=== PATIENT | female | born 1980 | race Caucasian/White ===

== ENCOUNTER 2018-01-08 21:45 | Emergency (ER) | payer MEDICAID, SELFPAY ==
[2018-01-08 21:45] VITALS: BP 132/82; PULSE 72; RESP 16; TEMP 36.7; O2SAT 99; BMI 23.3
--- NOTE | 2018-01-08 23:06 | ED.VISSUMM ---
- ER Visit Summary Date of Service: 01/08/18 Chief Complaint: Headache History of Present Illness: The patient is a 37 F is had a headache at work over the past 3 days. Patient states the proximal hour after arriving at work she will develop headache in the bilateral temporal area. Yesterday she developed vomiting because the headache was so severe and she was sent home early. Patient states today she developed headache and nausea and was sent home early again. 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 Headaches usually resolve about 2 hours after she leaves work. She does admit that she is due for an eye exam. Patient fell asleep in the waiting area while waiting for a room. When I called her name she states she jumped up and twisted her left ankle. She is now complaining of left ankle pain. Headache at this time is resolved. Physical Examination: Vital signs unremarkable. Patient sitting upright in a well lit room. She is in no acute distress. Head neck examination reveals no sign of trauma. Heart is regular rate and rhythm. Lung sounds are clear. Abdomen is soft and nontender. Left lower extremity examination reveals reproducible tenderness of the lateral malleolus. There is minimal edema. Strong pulses are noted. Neuro exam is normal. Test Results: Left ankle x-rays are obtained and unremarkable. Emergency Department Course and Treatment: Matthieu wrap will be applied to the left ankle. Patient is encouraged to have her eyes checked as soon as possible. Should be on a prescription for Zofran. Treatment Plan: [] Disposition: Discharge Impression: 1. Cephalgia, resolved 2. Left ankle sprain This note was generated with [employer] dictation software. It may contain incorrect words, spelling, and punctuation that were not noted in review of the chart prior to signing ED Disposition - Plan for ED Patient: Chief Complaint: Headache Referrals: [facility] Doctor,Out of [Primary Care Provider] -
--- NOTE | 2018-01-08 23:10 | RAD_ITS ---
STUDY: X-RAY - LEFT ANKLE REASON FOR EXAM: Female, 37 years old. Ankle pain. Injury. TECHNIQUE: 3 view(s) of the ankle. COMPARISON: None. FINDINGS: Normal visualized distal tibia and fibula. Normal medial and lateral malleoli. Normal tibiotalar articulation and ankle mortise. Normal visualized talus and calcaneus. The visualized subtalar, talonavicular, calcaneocuboid and tarsal articulations are normal. There is no demonstrated fracture. The soft tissue structures are unremarkable. RAD/Ankle min 3 Views IMPRESSION: Normal x-ray examination of the ankle. Electronically Signed: Nirmal Weiss MD at 23:30 EDT , Service support ,
--- NOTE | 2018-01-08 23:37 | ED.DEP ---
ED Disposition - Plan for ED Patient: Disposition: Home or Assisted Living Chief Complaint: Lower Extremity Injury Instructions: ED Cephalgia Unspecified, ED Sprain Ankle W X Ray Prescriptions: Ondansetron [Zofran Odt] 4 mg PO Q8H PRN PRN #10 tablet PRN Reason: Nausea Referrals: [facility],Out of [Primary Care Provider] - Additional Instructions: Follow-up for eye exam as soon as possible.
== END 2018-01-08 23:49 | disposition home or self-care (01) ==
PROVIDERS: Emergency Provider Emergency Medicine
DX: R51 Headache (principal); S93.402A Sprain of unspecified ligament of left ankle, initial encounter; X50.1XXA Overexertion from prolonged static or awkward postures, initial encounter; Y93.89 Activity, other specified; Y92.538 Other ambulatory health services establishments as the place of occurrence of the external cause; I10 Essential (primary) hypertension; Z72.0 Tobacco use
CPT/HCPCS: 73610; 99283

== ENCOUNTER 2018-06-10 13:00 | Emergency (ER) | payer MEDICAID, SELFPAY ==
[2018-06-10 13:00] VITALS: BP 155/87; PULSE 69; RESP 16; TEMP 36.2; O2SAT 99; BMI 27.1
--- NOTE | 2018-06-10 13:24 | CT_ITS ---
STUDY: CT SOFT TISSUE NECK WITH CONTRAST REASON FOR EXAM: Female, 37 years old. Several day history of a right earache and sore throat. RADIATION DOSAGE (If Supplied By Facility): CTDIvol = ( 13.44 ) mGy, DLP = ( 424.71 ) mGycm TECHNIQUE: The patient was scanned in a multi-detector CT scanner. High resolution transaxial imaging was performed following intravenous administration of 75 ml of Isovue 300 contrast material. Sagittal and coronal images were reconstructed. Individualized dose optimization techniques were used for this CT. COMPARISON: None. FINDINGS: Normal bilateral parotid glands. Normal bilateral business solutions consultant spaces. Normal bilateral parapharyngeal spaces. Normal bilateral carotid spaces. Normal bilateral sublingual and submandibular glands and spaces. Normal visualized nasopharynx. Normal retropharyngeal space. Normal perivertebral space. There is hypertrophy of the bilateral faucial tonsils. This is more prominent on the right side. There is narrowing of the oropharyngeal airway. No abscess is seen at this time. The visualized tongue, tongue base and oropharynx are normal. There are minimally enlarged lymph nodes of the neck, with preservation of normal hiral architecture, consistent with a reactive lymph hyperplasia. There is no demonstrated solid or cystic mass lesion. There is no abnormal contrast enhancement. Normal epiglottis, bilateral vallecula and hypopharynx. The pre-epiglottic and paraglottic adipose spaces are normal. Normal visualized bilateral piriform sinuses, aryepiglottic folds, vocal cords, and arytenoid-cricoid articulations. Normal subglottic trachea. Normal bilateral lobes of the thyroid gland. Normal visualized pulmonary apices. Normal visualized paranasal sinuses. Normal visualized cervical spine. CT/Soft Tissue Neck WITH Contrast IMPRESSION: Hypertrophy of the bilateral faucial tonsils more prominent on the right side. No evidence of a tonsillar abscess is seen at this time. Electronically Signed: Patrice Baron MD at 14:45 EST , Service support ,
[2018-06-10 13:48] LABS: Absolute Lymphocyte Count 2.12 X10^3/ul (0.83-4.51); Absolute Neutrophil Count 11.5 X10^3/uL (2.0-7.7); Basophil# 0.03 X10^3/uL; Basophil% 0.2 % (0-1); Eosinophil# 0.07 X10^3/uL; Eosinophils% 0.5 % (0-5); Hematocrit 41.7 % (37-47); Hemoglobin 12.6 g/dl (12.0-15.0); Lymphocyte # 2.12 X10^3/ul (4.0); Lymphocyte % 14.4 % (19-41); Mean Corp Hgb Conc 30.2 g/gl (32-36); Mean Corpuscular Hgb 24.4 pg (27.0-32.0); Mean Corpuscular Volume 80.7 fL (81-99); Mean Platelet Vol. 9.9 fl (6.2-12.0); Monocyte# 0.97 X10^3/uL; Monocyte% 6.6 % (0-10); Neutrophil # 11.48 X10^3/uL (2.7-7.7); Neutrophil % 78.1 % (47-70); Platelet Count 359 K/mm3 (150-450); RBC Distribution Width CV 18.4 % (11.6-14.6); RBC Distribution Width SD 54.4 fl (35.1-43.9); Red Blood Count 5.17 M/mm3 (4.2-5.4); White Blood Count 14.7 K/mm3 (4.4-11.0)
[2018-06-10 13:50] LABS: POSITIVE COUNT NO; POSITIVE DIFFERENTIAL NO; POSITIVE MORPHOLOGY NO
[2018-06-10 13:59] LABS: Anion Gap 11 (5-15); BUN 7 mg/dL (7-18); BUN/Creat Ratio 10.3 RATIO (10-20); Calcium,Total 8.8 mg/dL (8.5-10.1); Chloride 102 mmol/L (98-107); Creatinine, Serum 0.68 mg/dL (0.55-1.02); EST Glomerular Filtration Rate 104 mL/min (>60); Est Glom Filt Rate - Afr Amer 126 mL/min (>60); Estimated Creatinine Clearance 103.91 ml/min; Glucose 104 mg/dL (74-106); Potassium 3.6 mmol/L (3.5-5.1); Sodium Level 140 mmol/L (136-145)
--- NOTE | 2018-06-10 15:05 | ED.VISSUMM ---
- ER Visit Summary Date of Service: 06/10/18 Chief Complaint: Sore throat History of Present Illness: The patient is a 37 F who presents with sore throat that has gotten worse since yesterday. Patient went to urgent care and was referred here for possible peritonsillar abscess. Patient states that he had a rapid strep at the urgent care which was negative. Patient states the pain is worse with swallowing. Patient states the pain improves with ice chips and tea. Patient denies any cough. Patient admits to some right ear pain. Patient admits to subjective fevers and sweats at home. Physical Examination: Vital signs are stable. Patient is afebrile. Patient is in no acute distress. Oral mucosa is pink and moist. Oropharynx shows some tonsillar erythema. There is no exudate noted. Neck is supple. Trachea is midline. There is tender anterior cervical lymphadenopathy noted. Heart was regular rate and rhythm. Lungs are clear and equal bilateral. Renal nerves II through XII are intact. There are no focal motor or sensory deficits noted. The remaining physical exam is within normal limits. Test Results: CBC and basic metabolic profile were obtained and were within normal limits. The skin of the soft tissue neck was obtained. There is no evidence of a peritonsillar abscess. Emergency Department Course and Treatment: Patient was advised that this is most likely a viral pharyngitis. Patient was instructed to follow-up with her primary care physician in 7-10 days. Patient understood and was agreeable with the plan. All questions were answered. Disposition: Discharged home Impression: Viral pharyngitis This note was generated with [employer] dictation software. It may contain incorrect words, spelling, and punctuation that were not noted in review of the chart prior to signing ED Disposition - Plan for ED Patient: Disposition: Home or Assisted Living Diagnosis: Pharyngitis Instructions: ED Pharyngitis Viral Referrals: [facility] Doctor,Out of [Primary Care Provider] -
[2018-06-10 15:27] VITALS: RESP 16
== END 2018-06-10 15:27 | disposition home or self-care (01) ==
PROVIDERS: Emergency Provider Emergency Medicine
DX: J02.9 Acute pharyngitis, unspecified (principal); Z72.0 Tobacco use
CPT/HCPCS: 70491; 80048; 85025; 99283; Q9967; A4216

== ENCOUNTER 2019-03-22 19:24 | Emergency (ER) | payer MEDICAID, SELFPAY ==
[2019-03-22 19:25] VITALS: BP 147/96; PULSE 102; RESP 16; TEMP 36.7; O2SAT 99; BMI 24.7
--- NOTE | 2019-03-22 19:45 | ED.VISSUMM ---
- ER Visit Summary Date of Service: 03/22/19 Chief Complaint: Back pain, breast tenderness, lower extremity edema, and headache History of Present Illness: The patient is a 38 F who presents with breast tenderness, back pain, lower extremity edema, and headache that has been getting worse over the past week. Patient states the symptoms are similar to when she was . Patient states she has had a tubal ligation. Patient denies any abdominal pain. Patient describes her pain as aching. Patient states it is over the lower back. Patient states she has been taking [id number]-[id number] medications which have been helping. Patient states her headache is similar to prior migraine headaches. Patient states it is worse with light. Patient denies any paresthesias or weakness. Patient admits to some nausea and vomiting. Physical Examination: Vital signs are stable. Patient is afebrile. Patient is in no acute distress. Oral mucosa is pink and moist. Neck is supple. Trachea is midline. There is no JVD. Heart was regular rate and rhythm. Lungs are clear and equal bilaterally. Abdomen is soft. Bowel sounds are normal. There is no tenderness. Cranial nerves II through XII are intact. There are no focal motor or sensory deficits noted. Test Results: CBC, basic metabolic profile, serum hCG were obtained and were all within normal limits. PA and lateral chest x-ray was obtained. There is no acute cardiopulmonary process. This was interpreted by the radiologist myself. Emergency Department Course and Treatment: Patient felt better on reevaluation. Patient was advised that this is most likely a viral illness. Patient was instructed to follow-up with her primary care physician in 5 to 7 days. Patient understood and was agreeable with the plan. All questions were answered. Disposition: Discharge home Impression: Viral illness This note was generated with [employer] dictation software. It may contain incorrect words, spelling, and punctuation that were not noted in review of the chart prior to signing ED Disposition - Plan for ED Patient: Disposition: Home or Assisted Living Diagnosis: Viral illness Instructions: VIRAL SYNDROME (Adult) Referrals: [facility],Out of [NON-STAFF] - 5-7 Days
--- NOTE | 2019-03-22 19:52 | RAD_ITS ---
STUDY: X-RAY CHEST REASON FOR EXAM: Female, 38 years old. Cough and general illness TECHNIQUE: Two view of the chest were performed COMPARISON: None. FINDINGS: Lungs are clear. There is no pneumothorax, pulmonary edema, pleural effusions or cardiomegaly. Osseous structures are intact. There is no gas under the diaphragms. [ ] RAD/Chest PA and Lateral IMPRESSION: 1. No acute cardiorespiratory disease. [ ] Electronically Signed: Renate Ramírez, at 20:17 EST Tel , Service support ,
[2019-03-22 20:02] LABS: Absolute Lymphocyte Count 3.04 X10^3/uL (0.83-4.51); Absolute Neutrophil Count 6.8 X10^3/uL (2.0-7.7); Basophil# 0.07 X10^3/uL; Basophil% 0.6 % (0-1); Eosinophil# 0.09 X10^3/uL; Eosinophils% 0.8 % (0-5); Hematocrit 39.1 % (37-47); Hemoglobin 12.7 g/dL (12.0-15.0); Lymphocyte # 3.04 X10^3/ul (4.0); Lymphocyte % 28.1 % (19-41); Mean Corp Hgb Conc 32.5 g/dL (32-36); Mean Corpuscular Hgb 26.6 pg (27.0-32.0); Mean Corpuscular Volume 81.8 fL (81-99); Mean Platelet Vol. 9.6 fl (6.2-12.0); Monocyte# 0.77 X10^3/uL; Monocyte% 7.1 % (0-10); NRBC Flagged by Analyzer 0 % (0-5); Neutrophil % 62.8 % (47-70); Platelet Count 377 K/mm3 (150-450); RBC Distribution Width CV 15.8 % (11.6-14.6); RBC Distribution Width SD 46.9 fl (35.1-43.9); Red Blood Count 4.78 M/mm3 (4.2-5.4); White Blood Count 10.8 K/mm3 (4.4-11.0)
[2019-03-22 20:17] LABS: Anion Gap 8 (5-15); BUN 12 mg/dL (7-18); BUN/Creat Ratio 17.3 RATIO (10-20); Calcium,Total 8.6 mg/dL (8.5-10.1); Chloride 106 mmol/L (98-107); Creatinine, Serum 0.69 mg/dL (0.55-1.02); EST Glomerular Filtration Rate 101 mL/min (>60); Est Glom Filt Rate - Afr Amer 123 mL/min (>60); Glucose 110 mg/dL (74-106); Sodium Level 139 mmol/L (136-145)
[2019-03-22 20:18] LABS: Internal QC Validated? YES +Cl - CLEAR BKGD; Pregnancy, Serum, hCG Quali. NEGATIVE Negative
== END 2019-03-22 21:25 | disposition home or self-care (01) ==
PROVIDERS: Emergency Provider Emergency Medicine
DX: B34.9 Viral infection, unspecified (principal); I10 Essential (primary) hypertension; J45.909 Unspecified asthma, uncomplicated; F17.200 Nicotine dependence, unspecified, uncomplicated
CPT/HCPCS: 71046; 80048; 84703; 85025; 99283

== ENCOUNTER → 2021-09-16 | Outpatient (CLI) | payer MEDICAID, SELFPAY ==
--- NOTE | 2021-09-16 10:46 | BI_ITS ---
MAMMOGRAPHY - BILATERAL SCREENING REASON FOR EXAM: Female, 40 years old. Routine annual screening examination. PERTINENT HISTORY: Aunt with breast cancer. Left breast mass. TECHNIQUE: Digital bilateral breast viji (3D mammographic acquisition) in the CC and MLO projections. 2-D mediolateral oblique (MLO) and craniocaudad (CC) views of both breasts were obtained. CAD: Full Field Digital Mammography with Computer Added Detection was performed. COMPARISON: None. Baseline examination. FINDINGS: Breast Composition: The breasts are heterogeneously dense, which may obscure small masses. There is an 8 cm x 7.2 cm mass in the upper outer quadrant of the left breast corresponding to the palpable abnormality. Correlation with ultrasound is recommended. There is retraction of the nipple. No other significant abnormalities are identified. BI/SCRN MAMM (CAD)W/VIJI BILAT IMPRESSION: 8 cm x 7.2 cm mass in the upper outer quadrant of the left breast corresponding to the palpable abnormality. Correlation with ultrasound is recommended. ASSESSMENT CATEGORY: BIRADS Category 0: Incomplete. Need additional imaging evaluation. A letter regarding these results will be sent to the patient by the facility within 30 days. Approximately 10% of breast cancers are not detected by mammography. A normal mammogram should not delay biopsy of a clinically suspicious abnormality. [id number] Electronically Signed: Patrice Baron MD at 12:02 EDT ,
== END | disposition home or self-care (01) ==
LOC: OPBI 10:44
PROVIDERS: Visit Provider Registered Nurse
DX: Z12.31 Encounter for screening mammogram for malignant neoplasm of breast (principal)
CPT/HCPCS: 77063; 77067

== ENCOUNTER → 2021-10-06 | Outpatient (REF) | payer SELFPAY ==
--- NOTE | 2021-10-06 10:15 | US_ITS ---
STUDY: ULTRASOUND BREAST - LEFT REASON FOR EXAM: Female, 41 years old. Left breast mass. TECHNIQUE: Axial and longitudinal images of the LEFT breast were performed with a high resolution ultrasound transducer. # OF IMAGES: 40 COMPARISON: Comparison is made with prior mammogram dated 09/16/2021. FINDINGS: LEFT Breast: There is a 6.6 cm x 7 cm x 5.2 cm complex solid and cystic mass extending from the 12 o''clock to the 3 o''clock position of the breast. Biopsy recommended. US/Breast Limited Unilateral IMPRESSION: 6.6 cm x 7 cm x 5.2 cm complex solid and cystic mass extending from the 12 o''clock position of the breast at the 3 o''clock position. Biopsy recommended. ASSESSMENT CATEGORY: BIRADS Category 4: Suspicious - Biopsy Should Be Considered. A letter regarding these results will be sent to the patient by the facility within 30 days. Electronically Signed: Patrice Baron MD at 11:05 EDT ,
== END | disposition home or self-care (01) ==
LOC: OPUS 09:54
PROVIDERS: Referring Provider Registered Nurse; Visit Provider Registered Nurse
DX: R92.8 Other abnormal and inconclusive findings on diagnostic imaging of breast (principal); Z12.31 Encounter for screening mammogram for malignant neoplasm of breast
CPT/HCPCS: 76642

== ENCOUNTER → 2021-10-14 | Outpatient (CLI) | payer MEDICAID, SELFPAY ==
--- NOTE | 2021-10-14 | IMM_PTH ---
PATIENT: IFTIKHAR CHENG LOC: [facility] U#:[id number] AGE/SX: 41/F ROOM: RE10/14/[address]: Dr. Joseluis Flores MD : 1980 BED: DIS: 10/14/2021 SPEC #: [id number] RECD: 10/18/21 11:42 STATUS: SANDEEP REQ #: [id number] JACINTA: 10/14/21 00:[address]: Joseluis Flores DEPT: IMMUNOHISTOCHEMISTRY RECD BY: Lakeshia Siddiqi ENTERED: 10/18/21 11:43 SP TYPE: IMMUNO OTHR DR: No Primary Care Phys Tissues: Left breast, NOS Procedures: CALPONIN-1 (add) CK5-6 (add) CK8 (add) E-CAD (add) HER2 DMITRY (add) KI-67 (add) P53 (add) NV (add) P40 (add) ER (initial) PHYSICIAN & INSTITUTION [address] [address] SPECIMEN INFORMATION: Tissue Source: Left breast tissue Clinical Info: Left breast mass Specimen Number: [id number] CPT code: 19745, 64360 x6, 40582 x3 METHODOLOGY: Deparaffinized sections of prefer/formalin-fixed tissue or PAP/DQ stained slides are incubated with monoclonal/polyclonal antibodies/oligonucleotide probes. Localization is made via biotin free immunoperoxidase method. Appropriate controls are performed and reacted as expected. Results on target cell population are indicated in the following table: RESULTS: ANTIBODY / CLONE RESULT E-Cad (ECH-6) positive CK8 (42njjdL02) positive Calponin-1 (GV691W) positive, weak CK5-6 (D5 & 1684) positive, focal and weak P40 (BC28) negative P53 (DO-7) positive Ki-67 (30-9) positive, high, ~70% MORPHOMETRIC ANALYSIS ER (clone 6F11) 0% NV (clone 16/1E2) <1%, moderate intensity Her-2Neu (clone CB11) 0 The prognostic test for HER2 is performed on formalin-fixed paraffin embedded tissue. A 3+ (positive) staining pattern is defined as intense, homogeneous, complete, circumferential membranous staining in >10% of contiguous tumor cells. A similar weak (2+) staining pattern is interpreted as equivocal. MILVIA follow-up testing is recommended for all equivocal cases. Positivity/negativity for ER/NV is reported if > or < 1% of the tumor cells are immuno- reactive, respectively. The ASCO/CAP criteria is used for scoring. Reference: Journal of Clinical Oncology, 2013; 31:2071-6906 & 2010; 16:6887-3280. Duration of fixation: 76.5 Hrs; Sample Adequate: Yes. These assays have not been validated on decalcified tissues. Results should be interpreted with caution given the likelihood of false negativity on decalcified specimens. These tests were developed and their performance characteristics determined by [facility]. They may not have been cleared or approved by the U.S. Food and Drug Administration. The FDA has determined that such clearance or approval is not necessary. The above immunohistochemical/dualISH markers are ordered and reviewed by the Pathologist. INTERPRETATION: Left breast, core biopsy: Invasive ductal carcinoma, nuclear grade 2. Negative for estrogen receptors (unfavorable prognostic indicator). Negative for progesterone receptors (unfavorable prognostic indicator). Negative for overexpression of BRK9dea. SJ:giovanni 10/19/2021 Case has been reviewed in consultation with Dr. Bedolla who concurs with the above diagnosis. IDC:AM
--- NOTE | 2021-10-14 | BRBX_PTH ---
PATIENT: IFTIKHAR CHENG LOC: [facility] U#:[id number] AGE/SX: 41/F ROOM: RE10/14/[address]: Dr. Joseluis Flores MD : 1980 BED: DIS: 10/14/2021 SPEC #: [id number] RECD: 10/14/21 15:38 STATUS: SANDEEP KANG #: [id number] JACINTA: 10/14/21 00:[address]: Joseluis Flores DEPT: SURGICAL PATHOLOGY RECD BY: Jasson Garrett ENTERED: 10/17/21 08:47 SP TYPE: BREAST BX OTHR DR: No Primary Care Phys Tissues: Left breast, NOS Procedures: Surgery Specimen Level IV HEADER OPERATION: Left breast biopsy PRE-OP DIAGNOSIS: Left breast mass TISSUE SUBMITTED: Left breast tissue MICROSCOPIC DIAGNOSIS Left breast, core biopsy: Invasive ductal carcinoma, nuclear grade 2, 0.3 cm in greatest dimension. See comment. ANNEMARIE:giovanni 10/18/2021 COMMENT Extensive area of infarction is noted adjacent to the tumor. Area of infarction measures 0.8 cm in greatest length. Immunohistochemistry ([id number]) supports the above diagnosis. ER/WI/Lhx8oxi studies are being performed on sections of tumor and the results from this study will be reported separately ([id number]). Case has been reviewed in consultation with Dr. Bedolla who concurs with the above diagnosis. IDC:AM MICROSCOPIC DESCRIPTION Slides are reviewed. GROSS DESCRIPTION Received in fixative is one container labeled with the patient's name and designated left breast. The specimen consists of multiple elongated fragments of lopez-yellow fibroadipose tissue that in aggregate measure 2 x 0.5 x 0.1 cm. The entire specimen is submitted in one cassette. / SJ:giovanni 10/17/2021 TC:0 CPT: 99792 ADDENDUM ADDENDUM ADDENDUM ADDENDUM ADDENDUM ADDENDUM 08/16/2022 10:06 ADDENDUM 08/28/2022 14:59 ADDENDUM 08/16/2022 10:06 ADDENDUM 08/16/2022 10:06 ADDENDUM 08/16/2022 10:06 ADDENDUM 08/16/2022 10:06 PD-L1 (KEYTRUDA) IMMUNOHISTOCHEMICAL ANALYSIS FROM [facility] RESULTS: Tumor proportion score: <1% / Negative Please see complete report in e-chart or [facility] REPORT FROM [facility] RESULT SUMMARY: Abnormal IMMUNOTHERAPY BIOMARKERS: Tumor Mutation Kramer: Low (3.1 Mutations / MB) Microsatellite Instability: MSI Negative (1.61%) PERTINENT NEGATIVE RESULTS: The following genes are NEGATIVE for clinically relevant mutations. Mutational hotspots and surrounding exonic regions were interrogated for DNA level point mutations and indels (fusions not assayed). AKT1, APC, ARID1A, MAURICE, BRAF, BRCA1, BRCA2, CDH1, CDKN2A, CTNNB1, EGFR, EPCAM, ERBB2, ERBB4, FBXW7, FGFR1, FGFR2, FGFR3, GNA11, GNAQ, GNAS, HRAS, IDH1, IDH2, KDR, KIT, KRAS, MEN1, MET, MLH1, MSH2, MSH6, NOTCH1, NRAS, PDGFRA, PIK3CA, PMS2, POLE, PTEN, PTPN11, RB1, RET, SMAD4, SMO, STK11, TERT, TSC1, TSC2, VHL Please see complete report in e-chart or EMR
== END | disposition home or self-care (01) ==
PROVIDERS: Referring Provider Surgery; Visit Provider Surgery
DX: N63.20 Unspecified lump in the left breast, unspecified quadrant (principal)
CPT/HCPCS: 88305; 88341; 88342

== ENCOUNTER → 2021-12-30 | Outpatient (CLI) | payer MEDICAID, SELFPAY ==
--- NOTE | 2021-12-30 09:41 | NM_ITS ---
CLINICAL: 41-year-old female with history of primary breast carcinoma. WHOLE BODY 99m Tc MDP RADIONUCLIDE BONE SCINTIGRAPHY COMPARISON: None available FINDINGS: Following the intravenous administration of 25.2 mCi of 99m Tc MDP, whole body bone images reveal: 1. Increased radiotracer distribution is defined in the acromioclavicular and sternoclavicular compartments of both shoulders, the patellofemoral and medial tibial compartments of both knees, the posterior midline sacrum. 2. The remaining skeletal structures are scintigraphically unremarkable with normal-appearing renal images and urinary bladder activity identified. NM/Bone Scan Whole Body IMPRESSION: 1. The increase in tracer distribution defined in the bilateral shoulders, the right-left knees and posterior midline sacrum is most consistent with degenerative arthrosis. 2. There is no typical scintigraphic evidence of diffuse axial skeletal metastatic disease. Electronically Signed: Deric Harris, at 19:22 EDT ,
== END | disposition home or self-care (01) ==
LOC: NM 09:40
PROVIDERS: Referring Provider Internal Medicine Medical Oncology; Visit Provider Internal Medicine Medical Oncology
DX: C50.912 Malignant neoplasm of unspecified site of left female breast (principal)
CPT/HCPCS: 78306; A9503

== ENCOUNTER 2022-07-30 15:31 | Inpatient (IN) | payer MEDICAID, SELFPAY ==
[2022-07-30] VITALS (11 sets, daily range): BP systolic 115–156; BP diastolic 63–114; PULSE 112–128; RESP 22–36; TEMP 36.2–36.8; O2SAT 94–98; BMI 29.2
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
--- NOTE | 2022-07-30 15:41 | RAD_ITS ---
EXAM: XR CHEST, 1 VIEW CLINICAL INDICATION: dyspnea TECHNIQUE: Frontal view of the chest. This report was created using [employer] report generation technology. COMPARISON: 03/22/2019 FINDINGS: LUNGS AND PLEURAL SPACES: There are diffuse nodular opacities bilaterally which may represent diffuse bilateral pneumonia possibly metastatic disease. No pneumothorax. No effusion. HEART: Unremarkable. Cardiac silhouette not enlarged. MEDIASTINUM: Central airways and mediastinal contour are unremarkable. BONES/JOINTS: There is a left-sided effusion. SOFT TISSUES: Unremarkable. RAD/Chest 1 View (Portable) IMPRESSION: Left-sided effusion with diffuse nodular opacities bilaterally. Further evaluation with CT scan is recommended. Electronically Signed: Marbin Dhillon MD at 17:03 EDT ,
--- NOTE | 2022-07-30 15:41 | EKG12_ITS ---
Test Reason : SOB Blood Pressure : / mmHG Vent. Rate : 122 BPM Atrial Rate : 122 BPM P-R Int : 128 ms QRS Dur : 082 ms QT Int : 418 ms P-R-T Axes : 063 065 092 degrees QTc Int : 595 ms Sinus tachycardia Nonspecific T wave abnormality Abnormal ECG Confirmed by LEXIE GUY, LAURA ([id number]), photographic editor ALISSA MERCADO ([id number]) on 08/02/2022 10:00:50 AM Referred By: CHELSEY/ONEIDA Confirmed By:DAVE OWEN MD
--- NOTE | 2022-07-30 15:42 | ED.VIS.DYS ---
HPI History of Present Illness Chief Complaint: Shortness of Breath Detail of Chief Complaint: Shortness of breath Informant: patient Narrative Narrative: Patient presents with shortness of breath for the last 2 weeks. Today the dyspnea became more severe and she could not get her O2 sat past 50%. She does not wear home O2. She has history of asthma. Patient with history of breast cancer for which she discontinued treatment. Patient denies chest pain. She has had no fever. She has had a slight cough. No history of PE or DVT. Patient with history of hypertension and GERD. She is a smoker. Occasionally uses marijuana. She has used methamphetamines in the past. [facility] Medical History Acid reflux Asthma Back problem Breast cancer, left Gout HTN (hypertension) Request for sterilization Home Medications albuterol sulfate 90 mcg/actuation aerosol inhaler 1 - 2 puff inhalation Q4H PRN PRN Asthma 03/22/19 [History Last Taken Unknown] lisinopril 2.5 mg tablet 2.5 mg PO DAILY 03/22/19 [History Last Taken Unknown] Allergy/AdvReac Type Severity Reaction Status Date / Time Penicillins Allergy Rash Verified 07/30/22 16:21 aspirin AdvReac Abd Verified 07/30/22 16:21 cramps/diarrhea hydrocodone bitartrate AdvReac Abd Verified 07/30/22 16:21 [From Vicodin] cramps/diarrhea Family History Aunt Breast cancer Mother Diabetes Uncle Cancer skin cancer Father CVA (cerebral vascular accident) Daughter Thyroid disorder Surgical History S/P tubal ligation Social History Smoking Status: Current every day smoker tobacco type: cigarettes alcohol intake: never ROS ROS ED Review of Systems ROS Unobtainable: other Constitutional Constitutional ED: Reports lethargy; Denies chills, fever(s), sweats or weight loss Eyes Eyes: Denies blurry vision, change in vision or diplopia ENT ENT ED: Denies rhinorrhea or sore throat Cardiovascular Cardiovascular: Reports racing heartbeat; Denies chest pain or orthopnea Respiratory/Chest Respiratory/Chest: Reports dyspnea and dyspnea on exertion; Denies cough, orthopnea or sputum Gastrointestinal Gastrointestinal: Denies abdominal pain, diarrhea, nausea or vomiting Genitourinary Genitourinary ED: Denies dysuria, hematuria or urinary frequency Musculoskeletal Musculoskeletal: Denies arthralgias, back pain, myalgias or neck pain Integumentary Denies abscess, Abrasions or rash Neurologic Neurologic: Denies headache(s) or weakness Psychiatric Psychiatric: Denies anxiety, depression or suicidal thoughts Endocrine Endocrinology: Denies polydipsia, polyphagia or polyuria Hematologic/Lymphatic Hematologic/Lymphatic: Denies easy bleeding, easy bruising or lymphadenopathy Allergic/Immunologic Allergic/Immunologic ED: Denies mouth swelling, tongue swelling or urticaria EXAM Physical Exam Const Vital Signs: 07/30/22 15:32 07/30/22 15:50 07/30/22 16:50 Temperature 97.8 F Temperature Source Temporal Pulse Rate 128 H 124 H 120 H Respiratory Rate 36 H 30 H 30 H Respiratory Effort Respiratory Depth Respiratory Pattern Blood Pressure 152/98 H Blood Pressure Mean 116 Pulse Ox 95 Oxygen Delivery Method Non-Rebreather 07/30/22 16:55 07/30/22 17:07 Temperature Temperature Source Pulse Rate 123 H Respiratory Rate 27 H Respiratory Effort Short of Breath Respiratory Depth Shallow Respiratory Pattern Tachypnea Blood Pressure 156/96 H Blood Pressure Mean 116 Pulse Ox 98 Oxygen Delivery Method Nasal Cannula Positive well nourished and well developed General Appearance ED: well developed and NAD HEENT Reports TM's clear and moist mucous membranes normocephalic and atraumatic; Negative for trauma or tenderness Tympanic Membrane ED: Yes TM's clear Eyes PERRL and EOMs intact bilaterally General Eye ED: Negative for pale conjunctiva or scleral icterus Neck no lymphadenopathy, supple and no JVD General: Negative for tenderness Chest Wall inspection of chest normal and palpation of chest normal Chest: Negative for tenderness Resp Resp Narrative: Patient with some tachypnea and some mild conversational dyspnea. No accessory muscle use or retractions. Effort and Inspection: Negative for respiratory distress or pain with movement Auscultation: wheezes and diminished lung sounds; Negative for rhonchi Cardio regular rhythm, S1 normal heart sound, S2 normal heart sound and no murmurs Rate: tachycardic Peripheral Pulses: pulses 2+ throughout GI normal to inspection, nondistended, normoactive bowel sounds, soft to palpation, non-tender, non-distended and no masses Back/Spine no CVA tenderness and no thoracic nor lumbar tenderness Extremity normal to inspection General Extremety ED: Negative for edema General Extremity: Negative for edema Neuro oriented x3, CN's II-XII intact bilaterally, no sensory deficits noted and gait normal Sensorium / Orientation: awake, alert, oriented to person, oriented to place and oriented to time Motor Exam: strength 5/5 throughout and strength abnormal Psych mental status grossly normal Skin no rashes or lesions noted and no wounds MDM MDM MDM Narrative Medical decision making narrative: Patient presents with hypoxemia and respiratory failure. In the differential was pneumonia versus pneumothorax versus PE given her cancer history. She was given DuoNeb aerosols and albuterol aerosols given her history of asthma and wheezing here. She was given steroid Solu-Medrol. CBC with differential obtained showed a white count of 17.5 and hemoglobin 11.1 platelet count 631. Chemistries unremarkable. Troponin slightly elevated 63. Lactate was elevated 2.9. Patient was started empirically on Levaquin [address] of the chest was obtained given the elevated D-dimer of 7.45 and her abnormal chest x-ray that showed multiple nodular lesions throughout the bilateral lungs. CTA of the chest showed too many to count nodules throughout both lungs and pleural effusions. No evidence for PE noted. Case discussed with hospitalist will evaluate patient for admission. Lab Data Attestation: I reviewed the patient's lab results. Labs: Laboratory Results - last 24 hr 07/30/22 07/30/22 07/30/22 15:43 15:43 15:43 WBC 17.5 H RBC 5.03 Hgb 11.1 L Hct 36.4 L MCV 72.4 L MCH 22.1 L MCHC 30.5 L RDW Std Deviation 42.5 RDW Coeff of Martha 16.6 H Plt Count 631 H MPV 9.3 Immature Gran % (Auto) 1.400 H Neut % (Auto) 81.2 H Lymph % (Auto) 10.9 L Daniels % (Auto) 6.2 Eos % (Auto) 0.1 Baso % (Auto) 0.2 Absolute Neuts (auto) 14.2 H Absolute Lymphs (auto) 1.91 Nucleated RBC % 0.2 D-Dimer Quant (PE/DVT) 7.45 H* Sodium 135 L Potassium 4.2 Chloride 104 Carbon Dioxide 23.0 Anion Gap 8 BUN 21 H Creatinine 0.75 Estim Creat Clear Calc 105.25 Est GFR (MDRD) Af Amer 110 Est GFR (MDRD) Non-Af 91 BUN/Creatinine Ratio 27.9 H Glucose 108 H Lactic Acid Calcium 9.5 Troponin I High Sens 63 H 07/30/22 15:55 WBC RBC Hgb Hct MCV MCH MCHC RDW Std Deviation RDW Coeff of Martha Plt Count MPV Immature Gran % (Auto) Neut % (Auto) Lymph % (Auto) Daniels % (Auto) Eos % (Auto) Baso % (Auto) Absolute Neuts (auto) Absolute Lymphs (auto) Nucleated RBC % D-Dimer Quant (PE/DVT) Sodium Potassium Chloride Carbon Dioxide Anion Gap BUN Creatinine Estim Creat Clear Calc Est GFR (MDRD) Af Amer Est GFR (MDRD) Non-Af BUN/Creatinine Ratio Glucose Lactic Acid 2.9 H* Calcium Troponin I High Sens Radiography Diagnostic Testing: Clinical Impression(s) from Imaging Studies Chest X-Ray 07/30/22 15:41 IMPRESSION: Left-sided effusion with diffuse nodular opacities bilaterally. Further evaluation with CT scan is recommended. Electronically Signed: Marbin Dhillon MD at 17:03 EDT , Chest CTA 07/30/22 16:36 IMPRESSION: 1. Large low-density mass in the left breast suspicious for malignancy. 2. Too numerous to count pulmonary nodules seen throughout both lungs compatible with extensive metastatic disease. There are enlarged left axillary lymph nodes which are likely metastatic. 3. Moderate left-sided pleural effusion. There is no evidence of pulmonary embolus. Electronically Signed: Marbin Dhillon MD at 17:44 EDT , 1 view chest x-ray obtained interpreted by myself as bilateral opacities/infiltrates. Radiology agreed and they thought there was a left-sided effusion. Radiology recommended CT imaging of the chest. EKG Initial EKG: Attestation: I personally reviewed and interpreted this EKG as follows: Comments: Sinus tachycardia with a rate of [address] changes Discharge Plan Triage Chief Complaint: Shortness of Breath ED Provider: Yahir Arizmendi Dx/Rx/DC Orders Clinical Impression: Acute dyspnea, Respiratory failure, Hypoxemia, Breast cancer metastasized to lung Prescriptions: No Action albuterol sulfate 1 INHALER inhaler 1 - 2 puff inhalation Q4H PRN PRN (Reason: Asthma) lisinopril 2.5 MG tablet 2.5 mg PO DAILY Primary Care Provider: Care Physician,No Primary Referrals: Care Physician,No Primary [Primary Care Provider] - Disposition Disposition: Acute Care Hospital [facility]
[2022-07-30] MEDS: Ipratropium/Albuterol Sulfate 3 ML AMPUL.NEB INHALATION ×2 (15:48→20:53)
[2022-07-30] MEDS: Albuterol 2.5 MG/3 ML VIAL.NEB. INHALATION ×3 (15:54→16:42)
[2022-07-30 16:00] LABS: Absolute Lymphocyte Count 1.91 X10^3/uL (0.83-4.51); Absolute Neutrophil Count 14.2 X10^3/uL (2.0-7.7); Basophil# 0.04 X10^3/uL; Basophil% 0.2 % (0-1); Eosinophil# 0.02 X10^3/uL; Eosinophils% 0.1 % (0-5); Hematocrit 36.4 % (37-47); Hemoglobin 11.1 g/dL (12.0-15.0); Lymphocyte # 1.91 X10^3/ul (0.83-4.51); Lymphocyte % 10.9 % (19-41); Mean Corp Hgb Conc 30.5 g/dL (32-36); Mean Corpuscular Hgb 22.1 pg (27.0-32.0); Mean Corpuscular Volume 72.4 fL (81-99); Mean Platelet Vol. 9.3 fl (6.2-12.0); Monocyte# 1.08 X10^3/uL; Monocyte% 6.2 % (0-10); NRBC Flagged by Analyzer 0.2 % (0-5); Neutrophil % 81.2 % (47-70); Platelet Count 631 K/mm3 (150-450); RBC Distribution Width CV 16.6 % (11.6-14.6); RBC Distribution Width SD 42.5 fl (35.1-43.9); Red Blood Count 5.03 M/mm3 (4.2-5.4); White Blood Count 17.5 K/mm3 (4.4-11.0)
[2022-07-30] MEDS: MethylPREDNISolone 125 MG/2 ML Vial IV (16:15)
--- OUTSIDE RECORDS SUMMARY | 2022-07-30 16:15 | XMS RPT_ITS | CCD ---
:1980 Author Organization [employer] Care Team Providers Name Role Phone USMAN [...] Class(es) Dates Sig (Normalized) Sig (Orig inal) [id number] 200 actuat albuterol 0.09 mg/actuat metered dose [...] surface Ag Ql (S) Negative Normal Negative [facility] Comment on above: Order Comment: Specimen Type : BLOOD SPECIMEN Ordering Facility: [facility] Address: [address] [place] [address] Performed By: #### [id number], 5195-3 #### [facility] CLIA [id number] [facility] [place] [address] [place] HCV Ab Ser Ql on 04-18-2022 HCV Ab Ql (S) Negative Normal Negative [facility] Comment on above: Order Comment: Specimen Type : BLOOD SPECIMEN Ordering Facility: [facility] Address: [address] [place] [address], [place] [address] Result Comment: The result s uggests no evidence of active infection with Hepatitis C virus. Shou ld recent infection be suspected, repeat testing may be consid ered 4-6 weeks after this draw. Performed By: #### [id number] # ### [facility] CLIA [id number] [address] [place] [address] [place] HIV 1+2 Ab IA Ql on 04-18-2022 HIV 1 and 2 Ab IA.rapid Nom Normal [facility] Comment on above: Order Comment: Specimen Type : BLOOD SPECIMEN Ordering Facility: [facility] Address: [address] [place] [address] Result Comment: Test not ind icated. Performed By: #### [id number], 5195-3 #### [facility] CLIA [id number] [address] [place] [address] [place] HIV 1+2 Ab+HIV1 p24 Ag IA Non-Reactive Normal Nonreactive [facility] Ql Comment on above: Order Comment: Specimen Type : BLOOD SPECIMEN Ordering Facility: [facility] Address: [address] [place] [address] Performed By: #### 69705-6, 5195-3 #### [facility] CLIA [id number] [address] [place] [address] [place] HIVINT Normal [facility] Comment on above: Order Comment: Specimen Type : BLOOD SPECIMEN Ordering Facility: [facility] Address: [address] [place] [address] Result Comment: No evidence of HIV-1 or HIV-2 infection. Should recent infection be suspected, repeat testing may be considered 2-3 weeks after this draw. [place] Rev. Code 3701.243(E): This information has been [...] test results or diagnoses. Performed By: #### 66914-9, 5195-3 #### [facility] CLIA [id number] [address] [place] [address] [place] HSV PCR, MISCELLANEOUS SPECIMEN TYPES o n 04-18-2022 HERPES SIMPLEX VIRUS SOURCE Serum Normal [facility] Comment on above: Order Comment: Specimen Type : BLOOD SPECIMEN Ordering Facility: [facility] Address: [address] [place] [address] Performed By: #### PCRHSV ## ## [id number] [address] [place] [address] HSV 1 SUBTYPE BY PCR Not detected Normal [facility] Comment on above: Order Comment: Specimen Type : BLOOD SPECIMEN Ordering Facility: [facility] Address: [address] [place] [address] Performed By: #### PCRHSV ## ## [facility] [id number] [address] [place] [address] HSV 2 SUBTYPE BY PCR Not detected Normal [facility] Comment on above: Order Comment: Specimen Type : BLOOD SPECIMEN Ordering Facility: [facility] Address: [address] [place] [address] Result Comment: INTERPRETIVE INFORMATION: HSV-1 and HSV-2 Subtype by PCR A negative result does not r ule out the presence of PCR inhibitors in the patient specimen or t est-specific nucleic acid in concentrations below the lev el of detection by this test. This test was developed and its performance characteristics determined by [facility]. It has not been cleared or approved by the [place] Food and Drug Administration. This test was performed in a CLIA certifie d laboratory and is intended for clinical purposes. Performed by [facility], [address] [place] [address] [email or web address], Chadwick Gomes MD, PHD, Lab. Director Performed By: #### PCRHSV ## ## [facility] CLIA [id number] [address] [place] [address] RPR Ser Ql on 04-18-2022 Reagin Ab RPR Ql (S) Non-Reactive Normal Nonreactive [facility] Comment on above: Order Comment: Specimen Type : BLOOD SPECIMEN Ordering Facility: [facility] Address: [address] [place] [address], [place] [address] Result Comment: Rapid plasma reagin (RPR) test detects non-treponemal antibodies. R IL may be reactive in a variety of infectious and non-infectiou s conditions. Correlation with clinical picture and with treponemal antibody results is required for final interpretation. Performed By: #### [id number] # ### [facility] CLIA [id number] [address] [place] [address] OF [facility] CNOV on 03-24-2022 CNOV Office Visit (UCWSTR) Normal [facility] CHEL Pulido ([id number]) 1980 [facility] Date Time Provider Department 03/24/22 2:45 PM [...] Asthma Gout HTN (hypertension) Sinusitis 02/2014 hospitalized [facility] PAST SURGICAL HISTORY Procedure Laterality Date NONE ALLERGIES Asa [Aspirin] MEDICATIONS amoxicillin (AMOXIL) 875 mg tablet Take 1 tablet by [facility] twice daily for 10 days. fluticasone [...] and atraumatic. Nose: Nose normal. Mouth/Throat: Lips: [place]. Mouth: Mucous membranes are moist. Pulmonary: Effort: [...] - AMOXICILLIN 875 MG TABLET Chadwick Rodriguez APRN.SOUND EFFECTS MANAGER Allergies As of Date: 03/24/2022 Noted Allergy Reactio n ASA (ASPIRIN) 01/14/2015 5 - Intolerance Date Reviewed: 03/24/2022 Reviewed by: Chadwick Rodriguez APRN.SOUND EFFECTS MANAGER - Fully Assessed Reason for Visit: Dental [...] JAMIE on 10-28-2021 JAMIE Telephone ([facility]) [id number] 1980 [facility] Date Time Provider Department 10/28/21 MADIHA ROBLES KATIANA During your visit today, we recorded the following inf ormation about you: Madiha Robles APRN.SOUND EFFECTS MANAGER 10/28/2021 12:58 PM Signed Patient also tested [...] AM Signed ----- Message from Madiha Robles APRN.SOUND EFFECTS MANAGER sent at 10/29/2021 8:10 AM EDT ----- [...] ROBLES on 10/29 JAMIE Telephone ([facility]WSTR) [facility] ([id number][facility] 1980 [facility] Time Provider Department 10/28/21 MADIHA ROBLES [facility] During your visit today, we recorded [...] AMPLIFICATION on Lactobacillus Positive Abnormal Negative for [place] [facility] crispatus+gasseri+jensenii + bacterial [place] Gardnerella vaginalis + Atopobium vaginos is vaginae rRNA BRANDON+probe Ql (Vag fld) Comment on above: Order Comment: Specimen Type : SWAB Ordering Facility: [facility] Address: [address] [place] [address] Performed By: #### BVAMP ### # [facility] CLIA [id number] [address] [place] [address] [place] Bacteria Ur Cult on 10-27-2021 Bacteria identified ORGANISM ID: 1 Normal [facility] Cx Nom (U) 10,000 -<50,000 CFU/ml Mixed microbiota [place] No further workup. Mixed monet robiota can be due to???urine???contamination with skin bacteria at time of collection or presence of a long-term urinary catheter. If a new culture is needed, please conside r re-education of the patient on proper midstream co llection technique or straight catheterization for???u rine???collection. Comment on above: Performed By: #### [id number], 5195-3 #### [facility] CLIA [id number] [address] [place] [address] [place] C. trachomatis+N. gonorrhoeae DNA BRANDON+pr obe Ql (Unsp spec) on 10-27-2021 C. trachomatis DNA Positive Abnormal Negative for Chlamydia [facility] BRANDON+probe Ql (Unsp trachomatis by [facility] spec) amplificaton Comment on above: Order Comment: Specimen Type : BLOOD SPECIMEN Ordering Facility: [facility] Address: [address] [place] [address] Performed By: #### [id number], 5195-3 #### [facility] [place] [id number] [address] [place] [address] [place] N. gonorrhoeae DNA Negative Normal Negative for Neisseria [facility] BRANDON+probe Ql (Unsp gonorrhoeae by [facility] spec) amplification Comment on above: Order Comment: Specimen Type : BLOOD SPECIMEN Ordering Facility: [facility] Address: [address] [place] [address] Performed By: #### 46033-4, 5195-3 #### [facility] IA [id number] [address] [place] [address] OF [place] TRACEY / TRICHOMONAS AMPLIFICATION on 10-27-2021 C. glabrata RNA Negative Normal Negative for Tracey [facility] BRANDON+probe Ql (Vag fld) glabrata [facility] Comment on above: Order Comment: Specimen Type : SWAB Ordering Facility: [facility] Address: [address] [place], [place] [id number] Performed By: #### CVTV #### [facility] IA [id number] [address] [place] [address] [place] Tracey albicans, C. Negative Normal Negative for Tracey [facility] dubliniensis, C. species [place] parapsilosis, and C. tropicalis RNA BRANDON+probe Ql (Vag fld) Comment on above: Order Comment: Specimen Type : SWAB Ordering Facility: [facility] Address: [address] [place] [address], [place] [address] Performed By: #### CVTV #### [facility] CLIA [id number] [address] [place] [address] OF [place] T. vaginalis DNA Negative Normal Negative for Trichomonas [facility] BRANDON+probe Ql (Unsp vaginalis by amplifica tion [place] spec) Comment on above: Order Comment: Specimen Type : SWAB Ordering Facility: [facility] Address: [address] [place] [address] [place] [address] Performed By: #### CVTV #### [facility] CLIA [id number] [address] [place] [address] [place] CNOV on 10-27-2021 CNOV Office Visit ([facility]) Normal [facility] CHEL MARTE ([id number]) 1980 [facility] Date Time Provider Department 10/27/21 6:15 PM KASEY WARNER [facility] During your visit today, we recorded the following inf ormation about you: Temperature Pulse Respiration Blood pressure 98.4 degrees 104/minute 18/minute 140/80 Weight Last Period 86 kg 10/22/21 Kasey Warner PA-C 10/27/2021 7:08 PM Signed This note was created using [employer]. Subjective Chel Marte is a 41 year old female. HPI Patient presents with left ear carcamo for 3 days. She den ies cold symptoms. No recent swimming. She denies drainage out of the ear. N o hearing changes. No fevers or chills. She also complains of vaginal discha rge. [facility]. She was treated fo r a UTI/yeast infection there but symptoms have returned. She is not sexually active for the past 2 months since in [facility]. She does have some lower back pain. [...] - HTN (hypertension) - Sinusitis 02/2014 hospitalized [facility] Current Outpatient Medications Medication Sig Dispense Refill - fluticasone (FLONASE) 50 mcg/actuation nasal spray U se 2 Sprays in each nostril once daily. Rinse mouth after use. 1 Each 0 - cetirizine (ZYRTEC) 10 mg tablet Take 1 tablet by [facility] once daily for 14 days. 14 [...] nd Clinic COLOR UA (POCT) Dark yellow [facility] inic GLUCOSE UA (POCT) Negative Negative mg/dL [facility] HEMOGLOBIN/BLOOD UA (POCT) Negative Negative C leveland [facility] KETONE UA (POCT) Negative Negative mg/dL [facility] LEUKOCYTES UA (POCT) Trace Abnormal Negative [facility] NITRITE UA (POCT) Negative Negative [facility] PH UA (POCT) 6.0 4.5 - 8.0 [facility] Protein Ql (U) Negative Negative mg/dL [facility] linic SPECIFIC GRAVITY UA (POCT) >=1.030 1.005 - 1.030 [facility] UROBILINOGEN UA (POCT) 0.2 E.U./dL Normal E.U./dL [facility] Vital Signs Date Time Vital Sign Value Performing Clinician Facilit y 10-27-2021 Body temperature 98.4 [degF] Kasey Warner PA-C [facility] 18:-399 Work Phone: 10-27-2021 Body weight 86 kg [facility]:15 Work Phone: 10-27-2021 Diastolic blood 80 mm[Hg] Kasey Warner PA-C [facility] 18:15-399 pressure Work Phone: 10-27-2021 Heart rate 104 /min [facility] Work Phone: 10-27-2021 Respiratory rate 18 /min Kasey Warner PA-C [facility] 18:15 Work Phone: 10-27-2021 SaO2% (BldA) [Mass 98 % Kasey Warner PA-C [facility] 18: fraction] Work Phone: 10-27-2021 Systolic blood 140 mm[Hg] Kasey Warner PA-C [facility] linic 18:15-040 pressure Work Phone: Encounters Encounter Date Encounter Type Care Provider Facility Start: 03-24-2022 ambulatory Facility:[facility] End: 03-24-2022 [facility] Hospital Start: 10-28-2021 Telephone encounter Madiha Robles APRN.C STEAM CONDITIONING OPERATOR [facility] Work Phone: Comment on above: Results Start: 10-27-2021 ambulatory Facility:[facility] End: 10-27-2021 Hospital Start: 10-27-2021 Patient encounter Kasey Warner PA-C [facility] End: 10-27-2021 procedure Work Phone: Comment on above: Vaginal discharge (Primary D x); Urinary frequency; Otalgia of left ear Start: 03-30-2018 Emergency department [facility] Facility: [facility] End: 03-30-2018 patient visit Start: 04-02-2017 Ambulatory [facility] End: 04-02-2017 Procedures Date Procedure Procedure Detail Performing Clin ician Start: 10-27-2021 Urnls dip stick/tablet Kasey Warner PA-C rgnt auto w/o microscopy Work Ph one: Plan of Treatment Date Care Activity Detail Author Start: Influenza vaccination [facility] 12-29-2021 Start: 10-27-2021 Bacteria identified in URINE CULTURE [facility] End: 12-27-2021 Urine by Culture Microbiology Routine Work Phone : Urinary frequency Expected: 10/27/2021, Expires: 12/27/2021 Comment on above: Expected: 10/27/2021, s: 12/27/2021 Start: 2012 HPV TESTING HPV TESTING [place] [facility] Start: 09-20-2003 PAP TESTING PAP TESTING [place] [facility] Start: 2001 Urine microalbumin DTAP,TDAP,TD (1 - Tdap) [facility] profile Start: 2000 HEPATITIS C SCREENING HEPATITIS C SCREENING [facility] Start: 2000 HIV SCREENING HIV SCREENING [facility] ic Start: 1994 Adult depression DEPRESSION SCREENING [facility] screening assessment Start: 1988 PNEUMOCOCCAL (1 - PCV) PNEUMOCOCCAL (1 - PCV) [facility] Start: 03-22-1983 COVID-19 VACCINE (#1) COVID-19 VACCINE (#1) [facility] BACTERIAL VAGINOSIS BACTERIAL VAGINOSIS [facility] AMPLIFICATION AMPLIFICATION Lab Work Phone: [phone]( [phone] Routine Vaginal discharge Ordered: 10/27/2021 Comment on above: Ordered: 10/27/2021 TRACEY / TRICHOMONAS TRACEY / TRICHOMONAS [facility] AMPLIFICATION AMPLIFICATION Lab Routine Work P jason: Vaginal discharge Ordered: 10/27/2021 Comment on above: Ordered: 10/27/2021 Chlamydia trachomatis+Neisseria GC/CHLAMYDIA DNA DET Lab [facility] gonorrhoeae DNA [Presence] in Routine Vaginal Wo rk Phone: Unspecified specimen by BRANDON with discharge Order ed: probe detection 10/27/2021 Comment on above: Ordered: 10/27/2021 Payers Date Payer Category Payer Medicaid [id number] 2013 Medicaid [facility] MEDICAID [id number] [employer]ICA[employer] [id number] 2013-Present [phone] [address] [place] [address] Medicaid Social History Date Type Detail Facility Start: 12-29-2015 Tobacco smoking status Smokes tobacco daily [facility] NHIS Start: 12-29-2015 Tobacco use and exposure Smokeless tobacco [facility] non-user Start: 10-27-2021 Alcohol intake Current non-drinker of [facility] alcohol (finding) Start: 1980 Sex Assigned At Not on file [facility] Start: 10-17-2021 Exposure to SARS-CoV-2 Not sure [facility] End: 10-27-2021 (event) Progress note 03-24-2022 Note Date & Type Note Facility 03-24-2022 Note HNO ID: [id number] [facility] Author: Chadwick Rodriguez APRN.SOUND EFFECTS MANAGER Service: ? Author Type: Nurse Practitioner Type: [...] Asthma Gout HTN (hypertension) Sinusitis 02/2014 hospitalized [facility] PAST SURGICAL HISTORY Procedure Laterality Date [...] and atraumatic. Nose: Nose normal. Mouth/Throat: Lips: [place]. Mouth: Mucous membranes are moist. Pulmonary: Effort: [...] - AMOXICILLIN 875 MG TABLET Chadwick Rodriguez APRN.SOUND EFFECTS MANAGER Note 11-03-2021 Telephone Encounter - Marianne Ean FRANCES - 11/03/2021 10:00 AM EDTTelephone Encounter - Marianne Mckoy LPN - 11/03/2021 9:40 AM EDTTelephone Encounter - Marianne Besabdelrahman FRANCES - 11/01/2021 10:50 AM EDT Note Date & Type Note Facility 11-03-2021 Miscellaneous Notes [facility] Letter mailed to patient.Marianne Mckoy LPN Still [...] & Type Note Facility 10-28-2021 Miscellaneous Notes [facility] Phone call placed no answer unable to [...] Type Note Facility 10-27-2021 Note HNO ID: [id number] [facility] Keven franklin Author: Kasey Warner PA-C Service: ? Author Type: [employer] Relay Tester Type: Progress Notes Filed: 10/27/2021 7:08 PM Note Text: This note was created using [employer]. Subjective Chel Marte is a 41 year old female. HPI Patient presents with left ear carcamo for 3 days. She denies cold symptoms. No recent swimming. She denies drainage out of the ear. No hearing changes. No fevers or chills. She also c omplains of vaginal discharge. [facility] in [facility] for [facility] days . She was treated for a UTI/yeast infection there but symptoms have return ed. She is not sexually active for the past 2 months since in [facility]. She leos s have some lower back [...] - HTN (hypertension) - Sinusitis 02/2014 hospitalized [facility] Current Outpatient Medications Medication Sig Dispense [...] Type Note Facility 10-27-2021 History of Present [facility] illness Narrative This note was created using NoteWriter. Subjective Chel Marte is a 41 year old female. HPI Patient presents with left e ar carcamo for 3 days. She denies cold symptoms. No recent swimming. She denies drainage out of the ear. No hearing changes. No fevers or chills. She also complains of vaginal di scharge. [facility] for [facility] days. She was treated for a UTI/yeast infection there but symptoms have returned. She is not sexually active for the past 2 months since in [facility]. She leos s have some lower back [...] Asthma Gout HTN (hypertension) Sinusitis 02/2014 hospitalized [facility] Current Outpatient Medications Medication Sig Dispense [...] left ear Otalgia, unspecified [facility] Note Date & Type Note Facility Evaluation note Diagnosis BV (bacterial vaginosis)- Primary Vaginitis and vulvovaginitis, unspecifie d [facility] Summary Purpose Family History No Family History Records FoundNo Family History Records FoundNo Family History Records Found Advance Directives No Advanced Directives Records FoundNo Advanced Directives Records FoundNo Advanced Directives Records Found Additional Source Comments INFORMATION SOURCE (unrecognized section and content) DATE CREATED AUTHOR AUTHOR'S ORGANIZ ATION 10/23/2017 [facility] DATE CREATED AUTHOR AUTHOR'S ORGANIZATIO N 04/09/2018 [facility] DATE CREATED AUTHOR AUTHOR'S ORGANIZATIO N 04/28/2022 [facility] Keven franklin Source Comments (unrecognized section an [...] prosecute any alcohol or drug abuse patient. [facility] the event this information is protected by t catie Federal Confidentiality of Alcohol and Drug Abuse Patient Records regulations: This information has been disclosed to you from records protected by Federal confid entiality rules ( The Federal rules restrict any use of th e information to criminally investigate or prosecute any alcohol or drug abuse thompson ent. [facility] the event this information is protected by the Federal Confidentiality of Alcohol and Drug Abuse Patient Records regulations: This inform ation has been disclosed to you from records protected by Federal confidentiality rul es ( The Federal rules restrict any use of the in formation to criminally investigate or prosecute any alcohol or drug abuse thompson ent. [facility] Reason for Visit (unrecognized section a nd [...] BE BASED ON THE PRIMARY CLINICAL RECORDS. [employer] provides no warranty or guarantee of the accuracy or completeness of information in this document.
[2022-07-30 16:17] LABS: Anion Gap 8 (5-15); BUN 21 mg/dL (7-18); BUN/Creat Ratio 27.9 RATIO (10-20); Calcium,Total 9.5 mg/dL (8.5-10.1); Chloride 104 mmol/L (98-107); Creatinine, Serum 0.75 mg/dL (0.55-1.02); EST Glomerular Filtration Rate 91 mL/min (>60); Est Glom Filt Rate - Afr Amer 110 mL/min (>60); Estimated Creatinine Clearance 105.25 ml/min; Glucose 108 mg/dL (74-106); Potassium 4.2 mmol/L (3.5-5.1); Sodium Level 135 mmol/L (136-145); Troponin-I HS 63 pg/mL (3.0-54.0)
[2022-07-30] MEDS: 0.9% Normal Saline 1,000 ML 150 ML IV ×2 (16:20→21:01)
[2022-07-30 16:25] LABS: D-Dimer Quantitative (DVT/PE) 7.45 FEU/ug/m (0.27-0.49)
--- NOTE | 2022-07-30 16:36 | CT_ITS ---
EXAM: CT ANGIOGRAPHY CHEST WITHOUT AND WITH INTRAVENOUS CONTRAST CLINICAL INDICATION: dyspnea, elevated d-dimer TECHNIQUE: Helically acquired angiography images were obtained of the chest without and with intravenous contrast. This CT exam was performed using one or more of the following dose reduction techniques: automated exposure control, adjustment of the mA and/or kV according to patient size, and/or use of iterative reconstruction technique. This report was created using [employer] report generation technology. MIP reconstructed images were created and reviewed. CONTRAST: IV 100mL Isovue-370 COMPARISON: None. FINDINGS: PULMONARY ARTERIES: Unremarkable. Normal in caliber. No evidence of pulmonary embolism. AORTA: Unremarkable. Normal in caliber. No evidence of dissection. GREAT VESSELS OF AORTIC ARCH: Unremarkable. Normal in caliber. No evidence of dissection. LUNGS AND PLEURAL SPACES: There are extensive pulmonary nodules throughout both lungs compatible with metastatic disease. There is a moderate left-sided pleural effusion. No pneumothorax. HEART: Unremarkable. Heart size is normal. No pericardial effusion. No signs of right heart strain, ratio of right ventricle to left ventricle measures less than 1. MEDIASTINUM: Unremarkable. No mediastinal or hilar adenopathy. Esophagus is unremarkable. No hiatal hernia. THYROID: Unremarkable. No thyroid lesions. BONES/JOINTS: Unremarkable. No suspicious lytic or blastic abnormality. SOFT TISSUES: There is a large mass in the left breast that is incompletely imaged measuring roughly 9.6 x 9.9 x 9.5 cm suspicious for malignancy. LYMPH NODES: There are enlarged left axillary lymph nodes with the largest node measuring 3.1 x 2[address]/CTA Chest W/WO Contrast IMPRESSION: 1. Large low-density mass in the left breast suspicious for malignancy. 2. Too numerous to count pulmonary nodules seen throughout both lungs compatible with extensive metastatic disease. There are enlarged left axillary lymph nodes which are likely metastatic. 3. Moderate left-sided pleural effusion. There is no evidence of pulmonary embolus. Electronically Signed: Marbin Dhillon MD at 17:44 EDT ,
[2022-07-30 17:08] LABS: Lactic Acid 2.9 mmol/L (0.4-1.9)
[2022-07-30] MEDS: levoFLOXacin IV 750 MG/150 ML BAG 100 MG IV (17:16)
--- OUTSIDE RECORDS SUMMARY | 2022-07-30 18:15 | XMS RPT_ITS | CCD ---
:1980 Author Organization [facility] Care Team Providers Name Role Phone USMAN [...] Class(es) Dates Sig (Normalized) Sig (Orig inal) [id number] 200 actuat albuterol 0.09 mg/actuat metered dose [...] surface Ag Ql (S) Negative Normal Negative [facility] Comment on above: Order Comment: Specimen Type : BLOOD SPECIMEN Ordering Facility: Carmen brock [facility] Address: [address] [place] [address] Performed By: #### [id number], [id number] #### [facility] CLIA [id number] [facility] [place] [address] [place] HCV Ab Ser Ql on 04-18-2022 HCV Ab Ql (S) Negative Normal Negative [facility] Comment on above: Order Comment: Specimen Type : BLOOD SPECIMEN Ordering Facility: [facility] Address: [address] [place] [address], [place] [address] Result Comment: The result s uggests no evidence of active infection with Hepatitis C virus. Shou ld recent infection be suspected, repeat testing may be consid ered 4-6 weeks after this draw. Performed By: #### [id number] # ### [facility] CLIA [id number] [address] [place] [address] [place] HIV 1+2 Ab IA Ql on 04-18-2022 HIV 1 and 2 Ab IA.rapid Nom Normal [facility] Comment on above: Order Comment: Specimen Type : BLOOD SPECIMEN Ordering Facility: [facility] Address: [address] [place] [address] Result Comment: Test not ind icated. Performed By: #### [id number], 5195-3 #### [facility] CLIA [id number] [address] [place] [address] [place] HIV 1+2 Ab+HIV1 p24 Ag IA Non-Reactive Normal Nonreactive Cl [facility] Ql Comment on above: Order Comment: Specimen Type : BLOOD SPECIMEN Ordering Facility: [facility] Address: [address] [place] [address] Performed By: #### [id number], [id number] #### [facility] CLIA [id number] [address] [place] [address] [place] HIVINT Normal [facility] Comment on above: Order Comment: Specimen Type : BLOOD SPECIMEN Ordering Facility: [facility] Address: [address] [place] [address] Result Comment: No evidence of HIV-1 or HIV-2 infection. Should recent infection be suspected, repeat testing may be considered 2-3 weeks after this draw. [place] Rev. Code 3701.243(E): This information has been [...] test results or diagnoses. Performed By: #### [id number], 5195-3 #### [facility] CLIA [id number] [address] [place] [address] [place] HSV PCR, MISCELLANEOUS SPECIMEN TYPES o n 04-18-2022 HERPES SIMPLEX VIRUS SOURCE Serum Normal [facility] Comment on above: Order Comment: Specimen Type : BLOOD SPECIMEN Ordering Facility: [facility] Address: [address] [place] [address] Performed By: #### PCRHSV ## ## [facility] PARK[facility] [id number] [address] [place] [address] HSV 1 SUBTYPE BY PCR Not detected Normal [facility] Comment on above: Order Comment: Specimen Type : BLOOD SPECIMEN Ordering Facility: [facility] Address: [address] [place] [address] Performed By: #### PCRHSV ## ## [facility] [id number] [address] [place] [address] HSV 2 SUBTYPE BY PCR Not detected Normal [facility] Comment on above: Order Comment: Specimen Type : BLOOD SPECIMEN Ordering Facility: [facility] Address: [address] [place] [address] Result Comment: INTERPRETIVE INFORMATION: HSV-1 and HSV-2 Subtype by PCR A negative result does not r ule out the presence of PCR inhibitors in the patient specimen or t est-specific nucleic acid in concentrations below the lev el of detection by this test. This test was developed and its performance characteristics determined by [facility]. It has not been cleared or approved by the US Food and Drug Administration. This test was performed in a CLIA certifie d laboratory and is intended for clinical purposes. Performed by [facility], [address] [place], [place] [address] www.[email or web address], Chadwick Gomes MD, PHD, Lab. Director Performed By: #### PCRHSV ## ## [facility] CLIA [id number] [address] [place] [address] RPR Ser Ql on 04-18-2022 Reagin Ab RPR Ql (S) Non-Reactive Normal Nonreactive [facility] Comment on above: Order Comment: Specimen Type : BLOOD SPECIMEN Ordering Facility: [facility] Address: [address] [place] [address], [place] [address] Result Comment: Rapid plasma reagin (RPR) test detects non-treponemal antibodies. R CT may be reactive in a variety of infectious and non-infectiou s conditions. Correlation with clinical picture and with treponemal antibody results is required for final interpretation. Performed By: #### [id number] # ### [facility] CLIA [id number] [address] [place] [address] OF [facility] CNOV on 03-24-2022 CNOV Office Visit (UCWSTR) Normal [facility] and CHEL Pulido ([id number]) 1980 [facility] Date Time Provider Department 03/24/22 2:45 [...] Asthma Gout HTN (hypertension) Sinusitis 02/2014 hospitalized [facility] PAST SURGICAL HISTORY Procedure Laterality Date NONE ALLERGIES Asa [Aspirin] MEDICATIONS amoxicillin (AMOXIL) 875 mg tablet Take 1 tablet by [facility] twice daily for 10 days. fluticasone (FLONASE) [...] and atraumatic. Nose: Nose normal. Mouth/Throat: Lips: [place]. Mouth: Mucous membranes are moist. Pulmonary: Effort: [...] - AMOXICILLIN 875 MG TABLET Chadwick Rodriguez APRN.FRONT OFFICE REPRESENTATIVE Allergies As of Date: 03/24/2022 Noted Allergy Reactio n ASA (ASPIRIN) 01/14/2015 5 - Intolerance Date Reviewed: 03/24/2022 Reviewed by: Chadwick Rodriguez APRN.FRONT OFFICE REPRESENTATIVE - Fully Assessed Reason for Visit: Dental [...] 03/24/22 JAMIE on 10-28-2021 JAMIE Telephone (WSTR) [id number] 1980 [facility] Date Time Provider Department 10/28/21 MADIHA ROBLES KATIANA During your visit today, we recorded the following inf ormation about you: Madiha Robles APRN.FRONT OFFICE REPRESENTATIVE 10/28/2021 12:58 PM Signed Patient also tested [...] AM Signed ----- Message from Madiha Robles APRN.FRONT OFFICE REPRESENTATIVE sent at 10/29/2021 8:10 AM EDT ----- Urine culture did not show clear evidence of infection . Sample may have been contaminated with skin bacteria during c ollection. If not improving, recommend follow up with PCP. IAVN Holley 10/31/2021 9:12 AM Signed Unable to [...] MADIHA ROBLES on 10/29 JAMIE Telephone (UCWSTR) [facility] ([id number] 1980 [facility] Time Provider Department 10/28/21 MADIHA ROBLES [facility] During your visit today, we recorded the [...] AMPLIFICATION on Lactobacillus Positive Abnormal Negative for [facility] crispatus+gasseri+jensenii + bacterial [facility] Gardnerella vaginalis + Atopobium vaginos is vaginae rRNA BRANDON+probe Ql (Vag fld) Comment on above: Order Comment: Specimen Type : SWAB Ordering Facility: [facility] Address: [address] [place] [address] Performed By: #### BVAMP ### # [facility] CLIA [id number] [address] [place] [address] [place] Bacteria Ur Cult on 10-27-2021 Bacteria identified ORGANISM ID: 1 Normal [facility] Cx Nom (U) 10,000 -<50,000 CFU/ml Mixed microbiota [facility] No further workup. Mixed monet robiota can be due to???urine???contamination with skin bacteria at time of collection or presence of a long-term urinary catheter. If a new culture is needed, please conside r re-education of the patient on proper midstream co llection technique or straight catheterization for???u rine???collection. Comment on above: Performed By: #### [id number], 5195-3 #### [facility] CLIA [id number] [address] [place] [address] [place] C. trachomatis+N. gonorrhoeae DNA BRANDON+pr obe Ql (Unsp spec) on 10-27-2021 C. trachomatis DNA Positive Abnormal Negative for Chlamydia [facility] BRANDON+probe Ql (Unsp trachomatis by [facility] nd spec) amplificaton Comment on above: Order Comment: Specimen Type : BLOOD SPECIMEN Ordering Facility: [facility] Address: [address] [place] [address] Performed By: #### [id number], 5195-3 #### [facility] [place] [id number] [address] [place] [address] [place] N. gonorrhoeae DNA Negative Normal Negative for Neisseria [facility] BRANDON+probe Ql (Unsp gonorrhoeae by [facility] spec) amplification Comment on above: Order Comment: Specimen Type : BLOOD SPECIMEN Ordering Facility: [facility] Address: [address] [place] [address] Performed By: #### [id number], 5195-3 #### [facility] [place] [id number] [address] [place] [address] OF [place] TRACEY / TRICHOMONAS AMPLIFICATION on 10-27-2021 C. glabrata RNA Negative Normal Negative for Tracey [facility] BRANDON+probe Ql (Vag fld) glabrata Eduardo land Comment on above: Order Comment: Specimen Type : SWAB Ordering Facility: [facility] Address: [address] [place], [place] [id number] Performed By: #### CVTV #### [facility] [place] [id number] [address] [place] [address] [place] Tracey albicans, C. Negative Normal Negative for Tracey [facility] dubliniensis, C. species [facility] parapsilosis, and C. tropicalis RNA BRANDON+probe Ql (Vag fld) Comment on above: Order Comment: Specimen Type : SWAB Ordering Facility: [facility] Address: [address] [place] [address], [place] [address] Performed By: #### CVTV #### [facility] CLIA [id number] [address] [place] [address] [place] T. vaginalis DNA Negative Normal Negative for Trichomonas [facility] BRANDON+probe Ql (Unsp vaginalis by amplifica tion [facility] spec) Comment on above: Order Comment: Specimen Type : SWAB Ordering Facility: [facility] Address: [address] [place] [address] [place] [address] Performed By: #### CVTV #### [facility] CLIA [id number] [address] [place] [address] [place] CNOV on 10-27-2021 CNOV Office Visit (UCWSTR) Normal [facility] CHEL MARTE ([id number]) 1980 [facility] Date Time Provider Department 10/27/21 6:15 PM KASEY WARNER UCWSTR During your visit today, we recorded the following inf ormation about you: Temperature Pulse Respiration Blood pressure 98.4 degrees 104/minute 18/minute 140/80 Weight Last Period 86 kg 10/22/21 Kasey Warner PA-C 10/27/2021 7:08 PM Signed This note was created using [employer]. Subjective Chel Marte is a 41 year old female. HPI Patient presents with left ear carcamo for 3 days. She den ies cold symptoms. No recent swimming. She denies drainage out of the ear. N o hearing changes. No fevers or chills. She also complains of vaginal discha rge. She was in [facility] until a week ago for 65 days. She was treated fo r a UTI/yeast infection there but symptoms have returned. She is not sexually active for the past 2 months since in halfway. She does have some lower back pain. [...] - HTN (hypertension) - Sinusitis 02/2014 hospitalized [facility] Current Outpatient Medications Medication Sig Dispense Refill - fluticasone (FLONASE) 50 mcg/actuation nasal spray U se 2 Sprays in each nostril once daily. Rinse mouth after use. 1 Each 0 - cetirizine (ZYRTEC) 10 mg tablet Take 1 tablet [facility] daily for 14 days. 14 tablet [...] trial flonase, prednisone and zyrtec . GRACIE [employer] Referring Provider: SELF [200] Allergies As of [...] nd Clinic COLOR UA (POCT) Dark yellow [facility] inic GLUCOSE UA (POCT) Negative Negative mg/dL [facility] HEMOGLOBIN/BLOOD UA (POCT) Negative Negative [facility] KETONE UA (POCT) Negative Negative mg/dL [facility] LEUKOCYTES UA (POCT) Trace Abnormal Negative [facility] NITRITE UA (POCT) Negative Negative [facility] PH UA (POCT) 6[facility]0 4.5 [facility] [facility] Ql (U) Negative Negative mg/dL [facility] linic SPECIFIC GRAVITY UA (POCT) >=1.030 1.005 - 1.030 [facility] UROBILINOGEN UA (POCT) 0.2 E.U./dL Normal E.U./dL [facility] Vital Signs Date Time Vital Sign Value Performing Clinician Facilit y 10-27-2021 Body temperature 98.4 [degF] Kasey Warner PA-C [facility] 18:-399 Work Phone: 10-27-2021 Body weight 86 kg [facility]:15 Work Phone: 10-27-2021 Diastolic blood 80 mm[Hg] Kasey Warner PA-C [facility] 18:15-399 pressure Work Phone: 10-27-2021 Heart rate 104 /min K[facility]C [facility] Work Phone: 10-27-2021 Respiratory rate 18 /min Kasey Warner PA-C [facility] 18:15 Work Phone: 10-27-2021 SaO2% (BldA) [Mass 98 % Kasey Warner PA-C [facility] 18: fraction] Work Phone: 10-27-2021 Systolic blood 140 mm[Hg] Kasey Warner PA-C [facility]inic 18:15-040 pressure Work Phone: Encounters Encounter Date Encounter Type Care Provider Facility Start: 03-24-2022 ambulatory Facility:[facility] End: 03-24-2022 [facility] Start: 10-28-2021 Telephone encounter Madiha Robles APRN.C PACKING AND STAMPING MACHINE OPERATOR [facility] Work Phone: Comment on above: Results Start: 10-27-2021 ambulatory Facility:[facility] End: 10-27-2021 Hospital Start: 10-27-2021 Patient encounter Kasey Warner PA-C [facility] End: 10-27-2021 procedure Work Phone: Comment on above: Vaginal discharge (Primary D x); Urinary frequency; Otalgia of left ear Start: 03-30-2018 Emergency department [facility] Facility: [place] End: 03-30-2018 patient visit Start: 04-02-2017 Ambulatory [facility] End: 04-02-2017 Procedures Date Procedure Procedure Detail Performing Clin ician Start: 10-27-2021 Urnls dip stick/tablet Kasey Warner PA-C rgnt auto w/o microscopy Work Ph one: Plan of Treatment Date Care Activity Detail Author Start: Influenza vaccination [facility] 12-29-2021 Start: 10-27-2021 Bacteria identified in URINE CULTURE [facility] End: 12-27-2021 Urine by Culture Microbiology Routine Work Phone : Urinary frequency Expected: 10/27/2021, Expires: 12/27/2021 Comment on above: Expected: 10/27/2021, s: 12/27/2021 Start: 2012 HPV TESTING HPV TESTING [facility] Start: 09-20-2003 PAP TESTING PAP TESTING [facility] Start: 2001 Urine microalbumin DTAP,TDAP,TD (1 - Tdap) [facility] profile Start: 2000 HEPATITIS C SCREENING HEPATITIS C SCREENING [facility] Start: 2000 HIV SCREENING HIV SCREENING [facility] ic Start: 1994 Adult depression DEPRESSION SCREENING [facility] screening assessment Start: 1988 PNEUMOCOCCAL (1 - PCV) PNEUMOCOCCAL (1 - PCV) [facility] Start: 03-22-1983 COVID-19 VACCINE (#1) COVID-19 VACCINE (#1) [facility] BACTERIAL VAGINOSIS BACTERIAL VAGINOSIS [facility] AMPLIFICATION AMPLIFICATION Lab Work Phone: Routine Vaginal discharge Ordered: 10/27/2021 Comment on above: Ordered: 10/27/2021 TRACEY / TRICHOMONAS TRACEY / TRICHOMONAS [facility] AMPLIFICATION AMPLIFICATION Lab Routine Work P jason: Vaginal discharge Ordered: 10/27/2021 Comment on above: Ordered: 10/27/2021 Chlamydia trachomatis+Neisseria GC/CHLAMYDIA DNA DET Lab [facility] gonorrhoeae DNA [Presence] in Routine Vaginal Wo rk Phone: Unspecified specimen by BRANDON with discharge Order ed: probe detection 10/27/2021 Comment on above: Ordered: 10/27/2021 Payers Date Payer Category Payer Medicaid [id number] 2013 Medicaid [facility] MEDICAID [id number] [employer]ICA[employer] [id number] 2013-Present [phone] [address] [place] [address] Medicaid Social History Date Type Detail Facility Start: 12-29-2015 Tobacco smoking status Smokes tobacco daily [facility]IS Start: 12-29-2015 Tobacco use and exposure Smokeless tobacco [facility] non-user Start: 10-27-2021 Alcohol intake Current non-drinker of [facility] alcohol (finding) Start: 1980 Sex Assigned At Not on file [facility] Start: 10-17-2021 Exposure to SARS-CoV-2 Not sure [facility] End: 10-27-2021 (event) Progress note 03-24-2022 Note Date & Type Note Facility 03-24-2022 Note HNO ID: [id number] [facility] Author: Chadwick Rodriguez APRN.FRONT OFFICE REPRESENTATIVE Service: ? Author Type: Nurse Practitioner Type: [...] Asthma Gout HTN (hypertension) Sinusitis 02/2014 hospitalized [facility] PAST SURGICAL HISTORY Procedure Laterality Date [...] and atraumatic. Nose: Nose normal. Mouth/Throat: Lips: [place]. Mouth: Mucous membranes are moist. Pulmonary: Effort: [...] - AMOXICILLIN 875 MG TABLET Chadwick Rodriguez APRN.FRONT OFFICE REPRESENTATIVE Note 11-03-2021 Telephone Encounter - Marianne Ean FRANCES - 11/03/2021 10:00 AM EDTTelephone Encounter - Marianne Mckoy LPN - 11/03/2021 9:40 AM EDTTelephone Encounter - Marianne Besabdelrahman FRANCES - 11/01/2021 10:50 AM EDT Note Date & Type Note Facility 11-03-2021 Miscellaneous Notes [facility] Letter mailed to patient.Marianne Mckoy LPN Still [...] & Type Note Facility 10-28-2021 Miscellaneous Notes [facility] Phone call placed no answer unable to [...] Type Note Facility 10-27-2021 Note HNO ID: [id number] [facility] Keven franklin Author: Kasey Warner PA-C Service: ? Author Type: Physician Walnut Dehydrator Operator Type: Progress Notes Filed: 10/27/2021 7:08 PM Note Text: This note was created using [employer] Technologies[employer]Supern[employer]. Subjective Chel Marte is a 41 year old female. HPI Patient presents with left ear carcamo for 3 days. She denies cold symptoms. No recent swimming. She denies drainage out of the ear. No hearing changes. No fevers or chills. She also c omplains of vaginal discharge. She was in [facility] until a week ago for 65 days . She was treated for a UTI/yeast infection there but symptoms have return ed. She is not sexually active for the past 2 months since in halfway. She leos s have some lower back [...] - HTN (hypertension) - Sinusitis 02/2014 hospitalized [facility] Current Outpatient Medications Medication Sig Dispense [...] Type Note Facility 10-27-2021 History of Present [facility] illness Narrative This note was created using NoteWriter. Subjective Chel Marte is a 41 year old female. HPI Patient presents with left e ar carcamo for 3 days. She denies cold symptoms. No recent swimming. She denies drainage out of the ear. No hearing changes. No fevers or chills. She also complains of vaginal di scharge. [place] 65 [place]. She was treated for a UTI/yeast infection there but symptoms have returned. She is not sexually active for the past 2 months since in halfway. She leos s have some lower back [...] Asthma Gout HTN (hypertension) Sinusitis 02/2014 hospitalized [facility] Current Outpatient Medications Medication Sig Dispense [...] left ear Otalgia, unspecified [facility] Evaluation note Note Date & Type Note Facility Evaluation note Diagnosis BV (bacterial vaginosis)- Primary Vaginitis and vulvovaginitis, unspecifie d documented in this encounterC[facility] Summary Purpose Family History No Family History Records FoundNo Family History Records FoundNo Family History Records Found Advance Directives No Advanced Directives Records FoundNo Advanced Directives Records FoundNo Advanced Directives Records Found Additional Source Comments INFORMATION SOURCE (unrecognized section and content) DATE CREATED AUTHOR AUTHOR'S ORGANIZ ATION 10/23/2017 [facility] DATE CREATED AUTHOR AUTHOR'S ORGANIZATIO N 04/09/2018 [facility] DATE CREATED AUTHOR AUTHOR'S ORGANIZATIO N 04/28/2022 [facility] Keven franklin Source Comments (unrecognized section an [...] prosecute any alcohol or drug abuse patient. [facility] the event this information is protected by t catie Federal Confidentiality of Alcohol and Drug Abuse Patient Records regulations: This information has been disclosed to you from records protected by Federal confid entiality rules ( The Federal rules restrict any use of th e information to criminally investigate or prosecute any alcohol or drug abuse thompson ent. [facility] the event this information is protected by the Federal Confidentiality of Alcohol and Drug Abuse Patient Records regulations: This inform ation has been disclosed to you from records protected by Federal confidentiality rul es ( The Federal rules restrict any use of the in formation to criminally investigate or prosecute any alcohol or drug abuse thompson ent. [facility] Reason for Visit (unrecognized section a nd [...] BE BASED ON THE PRIMARY CLINICAL RECORDS. [employer] provides no warranty or guarantee of the accuracy or completeness of information in this document.
--- NOTE | 2022-07-30 18:26 | PCM.HP.STD ---
[facility] - General General Date of Admission: 07/30/22 Date of Service: 07/30/22 Chief Complaint: SOB HPI Narrative IFTIKHAR CHENG, is a 41 F with a history of asthma, hypertension, left breast cancer who presented to [facility] with 2 days of worsening shortness of breath with increased cough with green sputum production and fatigue. She had been found to have breast cancer last September and saw Dr. Alejandro but reports that she was scared after he mentioned possibly needing chemo as she has had multiple family members of cancer after they been on chemo so she stopped going. She briefly went back and said she completed 2 out of 4 of the tests that were requested and then she again was lost to follow-up because she wanted to have better quality of life then to be on chemo at the time. She presented to the ED and was found to void blood cell count of 17.5, D-dimer 7.45, sodium 135, lactic acid 2.9 and a troponin of 63. She was afebrile but on presentation 74% on room air and has been tachycardic and tachypneic. She had some diffuse wheezes and was given Levaquin and steroids as well as nebs. Due to elevated D-dimer she had CTA which did not show PE but showed concern for numerous metastatic nodules and left breast cancer. Hospitalist consulted for admission. Evaluated at bedside with family member. She endorses that she did go to oncology but due to being afraid of the treatments she did not go back. She denies any weight gain or weight loss, has had some progressive increasing shortness of breath over the past few weeks and has been somewhat tired but over this past 2 days her symptoms have escalated and now she has had a cough with green sputum as well as fatigue. She notes that her grandchildren have had some kind of upper respiratory infections but she is unsure what. Does not know if she has had any fever. She said that today she was checking her pulse ox and it read 50% and she checked it multiple times and tried to change the batteries but remains low she became very anxious and came to the hospital. She reports that she is very anxious and upset at the news about the spread of the cancer but feels that her breathing is significantly better with the interventions thus far. [facility] Medical History Acid reflux Asthma Back problem Breast cancer, left Gout HTN (hypertension) Request for sterilization Home Medications albuterol sulfate 90 mcg/actuation aerosol inhaler 1 - 2 puff inhalation Q4H PRN PRN Asthma 03/22/19 [History Last Taken Unknown] lisinopril 2.5 mg tablet 2.5 mg PO DAILY 03/22/19 [History Last Taken Unknown] Allergy/AdvReac Type Severity Reaction Status Date / Time Penicillins Allergy Rash Verified 07/30/22 16:21 aspirin AdvReac Abd Verified 07/30/22 16:21 cramps/diarrhea hydrocodone bitartrate AdvReac Abd Verified 07/30/22 16:21 [From Vicodin] cramps/diarrhea Family History Aunt Breast cancer Mother Diabetes Uncle Cancer skin cancer Father CVA (cerebral vascular accident) Daughter Thyroid disorder Surgical History S/P tubal ligation Social History Smoking Status: Current every day smoker tobacco type: cigarettes alcohol intake: never ROS ROS Narrative General: Denies fever/chills, no weight change, has been having some fatigue HENT: Denies headache, stuffy nose, denies sore throat EYES: Denies changes in vision Resp: Increasing cough with green sputum and shortness of breath Cardiac: Denies chest pain GI: Denies abdominal pain, one episode of nausea yesterday : Denies changes in urination Extremity: Has some trace swelling in lower extremities MSK: Some generalized weakness Neuro: Denies any numbness/tingling Heme: Denies any bleeding or bruising Skin: Denies rashes, no rashes on breast the left breast is larger than right breast and has an inverted nipple and dimpling Psychiatric: Feeling very anxious after diagnosis Vital Signs Vital Signs Vital Signs: 07/30/22 15:32 07/30/22 15:50 07/30/22 16:50 Temperature 97.8 F Temperature Source Temporal Pulse Rate 128 H 124 H 120 H Respiratory Rate 36 H 30 H 30 H Respiratory Effort Respiratory Depth Respiratory Pattern Blood Pressure 152/98 H Blood Pressure Mean 116 Pulse Ox 95 Oxygen Delivery Method Non-Rebreather Oxygen Flow Rate (L/min) Fraction of Inspired Oxygen (FIO2) 07/30/22 16:55 07/30/22 17:07 07/30/22 17:58 Temperature 98.3 F Temperature Source Temporal Pulse Rate 123 H 123 H Respiratory Rate 27 H 28 H Respiratory Effort Short of Breath Respiratory Depth Shallow Respiratory Pattern Tachypnea Blood Pressure 156/96 H 147/114 H Blood Pressure Mean 116 125 Pulse Ox 98 96 Oxygen Delivery Method Nasal Cannula Venturi Mask Oxygen Flow Rate (L/min) Fraction of Inspired Oxygen (FIO2) 07/30/22 18:23 07/30/22 16:08 07/30/22 17:13 Temperature Temperature Source Pulse Rate 123 H Respiratory Rate 25 H Respiratory Effort Respiratory Depth Respiratory Pattern Blood Pressure 115/104 H Blood Pressure Mean 107 Pulse Ox 98 Oxygen Delivery Method Venturi Mask Nasal Cannula Venturi Mask Oxygen Flow Rate (L/min) 6 12 Fraction of Inspired Oxygen (FIO2) 50 Weight Weight: 89.8 kg Body Mass Index (BMI) 29.2 Physical Exam Narrative General: Alert, oriented HEENT: Atraumatic, normocephalic Eyes: Anicteric, normal conjunctiva, extraocular movements grossly intact Neck: Supple Respiratory: Slight increase in respiratory effort, mildly tachypneic, diffusely coarse with wheezes Cardiovascular: Regular rhythm, tachycardic GI: Soft, nontender, nondistended Extremities: Trace edema in extremities Musculoskeletal: Moving all extremities Neuro: No overt focal neurological deficits Skin: No rashes appreciated, left breast larger than right breast with inverted nipple Psych: Anxious but cooperative Results Lab / Micro Data Result Diagrams: 07/30/22 15:43 07/30/22 15:43 Labs: Laboratory Results - last 24 hr 07/30/22 15:43: WBC 17.5 H, RBC 5.03, Hgb 11.1 L, Hct 36.4 L, MCV 72.4 L, MCH 22.1 L, MCHC 30.5 L, RDW Std Deviation 42.5, RDW Coeff of Martha 16.6 H, Plt Count 631 H, MPV 9.3, Immature Gran % (Auto) 1.400 H, Neut % (Auto) 81.2 H, Lymph % (Auto) 10.9 L, Izard % (Auto) 6.2, Eos % (Auto) 0.1, Baso % (Auto) 0.2, Absolute Neuts (auto) 14.2 H, Absolute Lymphs (auto) 1.91, Nucleated RBC % 0.2 07/30/22 15:43: D-Dimer Quant (PE/DVT) 7.45 H* 07/30/22 15:43: Sodium 135 L, Potassium 4.2, Chloride 104, Carbon Dioxide 23.0, Anion Gap 8, BUN 21 H, Creatinine 0.75, Estim Creat Clear Calc 105.25, Est GFR (MDRD) Af Amer 110, Est GFR (MDRD) Non-Af 91, BUN/Creatinine Ratio 27.9 H, Glucose 108 H, Calcium 9.5, Troponin I High Sens 63 H 07/30/22 15:55: Lactic Acid 2.9 H* Micro: Microbiology 07/30/22 15:48 Nasal Secretion SARS-CoV-2 & FLU Antigen (Rapid) - Final Radiology Impression Chest X-Ray 07/30/22 15:41 IMPRESSION: Left-sided effusion with diffuse nodular opacities bilaterally. Further evaluation with CT scan is recommended. Electronically Signed: Marbin Dhillon MD at 17:03 EDT , Chest CTA 07/30/22 16:36 IMPRESSION: 1. Large low-density mass in the left breast suspicious for malignancy. 2. Too numerous to count pulmonary nodules seen throughout both lungs compatible with extensive metastatic disease. There are enlarged left axillary lymph nodes which are likely metastatic. 3. Moderate left-sided pleural effusion. There is no evidence of pulmonary embolus. Electronically Signed: Marbin Dhillon MD at 17:44 EDT , Assessment & Plan Assessment/Plan (1) Hypoxia: (2) Acute dyspnea: (3) Breast cancer metastasized to lung: (4) Breast cancer, left: (5) Asthma: PLAN: Plan #Sepsis 2/2 presumed pulmonary source -Increased shortness of breath and increased cough with green sputum over the past 2 days with her grandchildren having URIs. Respiratory rate 25, heart rate 125, lactic acid 2.9, white blood cell count 17.5 -Chest x-ray with left-sided effusion with diffuse nodular opacities bilaterally. CTA ordered which was negative for PE but showed large low-density mass in left breast suspicious for malignancy as well as too numerous to count pulmonary nodules seen throughout both lungs and a moderate left-sided pleural effusion -Continue Levaquin -Received 1 L and is on 150 an hour in ED for fluid resuscitation -Does have some swelling in her lower extremities and a pleural effusion so we will continue at 150 an hour and escalate if needed, not presently hypotensive, lactic acid 2.9, improving clinical status improving can continue at current management -Sputum, urine, blood cultures ordered -Respiratory panel, COVID-negative -Incentive spirometry, daily weights, I's and O's -We will obtain BNP and echocardiogram given leg swelling and pleural effusion to rule out component of heart failure especially given need for fluids #Hypoxia 2/2 presumed CAP and lung metastasis with hx of asthma -Nebs, albuterol -Will continue steroids given wheezing and hx of asthma with significant improvement with breathing treatments and steroids in ED -mucinex -resp w/u as above #Presumed metastatic breast cancer -Based on documentation she has an invasive ductal carcinoma that is triple negative -Patient made aware of CT findings -Supportive care -We will obtain CT chest abdomen pelvis to further assess metastatic burden -Oncology consulted, she has seen Dr. Alejandro and then was lost to follow-up due to which she reported was anxiety over the diagnosis #Elevated troponin -63, no ischemic changes on EKG -We will repeat -Suspect secondary to sepsis #Elevated D-dimer -D-dimer greater than 7 -CTA with no PE -Likely elevated due to cancer plus or minus sepsis, no unilateral swelling in legs #Tobacco use -Nicotine patch #DVT ppx: Lovenox subcu Christianne Shaver MD Time spent in the patient's overall evaluation,decision-making process, review of diagnostic data, adjustment of management, discussion with other providers, nursing nursing and ancillary staff involved in patient's care documentation, 60 minutes Charges/Coding Visit Charges Inpatient E&M: 85899 Init Hosp L2
--- NOTE | 2022-07-30 18:57 | ECHOD_ITS ---
Reason For Study: Dyspnea/SOB Procedure This was a 2D Doppler, Color Flow transthoracic echocardiogram. The study was technically difficult. Unable to obtain proper apical images due to condition of left breast cancer. Bubble study performed from parasternal SAX window. Exam performed portable in patient room. Left Ventricle Normal LV size. The estimated ejection fraction is 55 %. No evidence for diastolic dysfunction. No regional wall motion abnormalities noted. Right Ventricle Normal RV size. Normal systolic function. Atria Normal left atrium. Normal right atrium. Bubble study suboptimal and inconclusive. Mitral Valve There is no mitral valve stenosis. No mitral valve insufficiency. Tricuspid Valve There is no tricuspid stenosis. Mild tricuspid valve insufficiency. Pulmonary artery systolic pressure is 55-60 mmHg. Aortic Valve Trisinus/trileaflet aortic valve. There is no aortic stenosis. No aortic valve insufficiency. Pulmonic Valve There is no pulmonic valvular stenosis. No pulmonic valve insufficiency. Great Vessels Normal aortic root. Pericardium/Pleural Trivial pericardial effusion. Medication Performed a rapid injection of agitated mix of 9 cc saline and 1cc air to assess for atrial septal defect. MMode/2D Measurements & Calculations LVIDd: 4.5 cm IVSd: 1.6 cm Ao root diam: 2.9 cm LVIDs: 3.6 cm LVPWd: 1.2 cm LA dimension: 4.4 cm FS: 21.8 % Doppler Measurements & Calculations MV E max deep: 43.3 cm/sec Lat Peak E' Deep: 9.3 cm/sec Med Peak E' Deep: 11.3 cm/sec MV A max deep: 96.0 cm/sec E/E' lat: 4.7 E/E' med: 3.8 MV E/A: 0.45 MV V2 max: 116.1 cm/sec Ao V2 max: 103.3 cm/sec LV V1 max: 82.2 cm/sec MV max P.4 mmHg Ao max P.3 mmHg LV V1 max P.7 mmHg MV V2 mean: 59.4 cm/sec MV mean P.8 mmHg MV V2 VTI: 15.5 cm TR max deep: 359.2 cm/sec TR max P.6 mmHg ECHO/Echo Complete Interpretation Summary The estimated ejection fraction is 55 %. No evidence for diastolic dysfunction. Mild tricuspid valve insufficiency. Trivial pericardial effusion. Ordering Physician: Christianne Shaver Performed By: Aniket Bustamante RCS
[2022-07-30 19:32] LABS: International Normalized Ratio 1.5; Prothrombin Time (Protime)PT. 17.6 SECONDS (11.7-14.9)
[2022-07-30 19:44] LABS: LDH 343 U/L (84-246); Magnesium 1.9 mg/dL (1.6-2.6); Troponin-I HS 61 pg/mL (3.0-54.0)
[2022-07-30 19:47] LABS: BNP,B-Type NATRIURETIC PEPTIDE 431.7 pg/mL (0-100)
[2022-07-30 20:00] LABS: Reflex Lactate? Y
--- OUTSIDE RECORDS SUMMARY | 2022-07-30 21:11 | XMS RPT_ITS | CCD ---
:1980 Author Organization [facility] Care Team Providers Name Role Phone USMAN [...] Class(es) Dates Sig (Normalized) Sig (Orig inal) [id number] 200 actuat albuterol 0.09 mg/actuat metered dose [...] surface Ag Ql (S) Negative Normal Negative [facility] Comment on above: Order Comment: Specimen Type : BLOOD SPECIMEN Ordering Facility: Carmen brock [facility] Address: [address] [place] [address] Performed By: #### [id number], [id number] #### [facility] CLIA [id number] [facility] [place] [address] [place] HCV Ab Ser Ql on 04-18-2022 HCV Ab Ql (S) Negative Normal Negative [facility] Comment on above: Order Comment: Specimen Type : BLOOD SPECIMEN Ordering Facility: [facility] Address: [address] [place] [address], [place] [address] Result Comment: The result s uggests no evidence of active infection with Hepatitis C virus. Shou ld recent infection be suspected, repeat testing may be consid ered 4-6 weeks after this draw. Performed By: #### [id number] # ### [facility] CLIA [id number] [address] [place] [address] [place] HIV 1+2 Ab IA Ql on 04-18-2022 HIV 1 and 2 Ab IA.rapid Nom Normal [facility] Comment on above: Order Comment: Specimen Type : BLOOD SPECIMEN Ordering Facility: [facility] Address: [address] [place] [address] Result Comment: Test not ind icated. Performed By: #### [id number], 5195-3 #### [facility] CLIA [id number] [address] [place] [address] [place] HIV 1+2 Ab+HIV1 p24 Ag IA Non-Reactive Normal Nonreactive [facility] Comment on above: Order Comment: Specimen Type : BLOOD SPECIMEN Ordering Facility: [facility] Address: [address] [place] [address] Performed By: #### [id number], [id number] #### [facility] CLIA [id number] [address] [place] [address] [place] HIVINT Normal [facility] Comment on above: Order Comment: Specimen Type : BLOOD SPECIMEN Ordering Facility: [facility] Address: [address] [place] [address] Result Comment: No evidence of HIV-1 or HIV-2 infection. Should recent infection be suspected, repeat testing may be considered 2-3 weeks after this draw. [place] Rev. Code 3701.243(E): This information has been [...] test results or diagnoses. Performed By: #### [id number], 5195-3 #### [facility] CLIA [id number] [address] [place] [address] [place] HSV PCR, MISCELLANEOUS SPECIMEN TYPES o n 04-18-2022 HERPES SIMPLEX VIRUS SOURCE Serum Normal [facility] Comment on above: Order Comment: Specimen Type : BLOOD SPECIMEN Ordering Facility: [facility] Address: [address] [place] [address] Performed By: #### PCRHSV ## ## [id number] [address] [place] [address] HSV 1 SUBTYPE BY PCR Not detected Normal [facility] Comment on above: Order Comment: Specimen Type : BLOOD SPECIMEN Ordering Facility: [facility] Address: [address] [place] [address] Performed By: #### PCRHSV ## ## [facility] [id number] [address] [place] [address] HSV 2 SUBTYPE BY PCR Not detected Normal [facility] Comment on above: Order Comment: Specimen Type : BLOOD SPECIMEN Ordering Facility: [facility] Address: [address] [place] [address] Result Comment: INTERPRETIVE INFORMATION: HSV-1 and HSV-2 Subtype by PCR A negative result does not r ule out the presence of PCR inhibitors in the patient specimen or t est-specific nucleic acid in concentrations below the lev el of detection by this test. This test was developed and its performance characteristics determined by [facility]. It has not been cleared or approved by the [place] Food and Drug Administration. This test was performed in a CLIA certifie d laboratory and is intended for clinical purposes. Performed by [facility], [address] [place], [place] [address] [email or web address], Chadwick Gomes MD, PHD, Lab. Director Performed By: #### PCRHSV ## ## [facility] CLIA [id number] [address] [place] [address] RPR Ser Ql on 04-18-2022 Reagin Ab RPR Ql (S) Non-Reactive Normal Nonreactive [facility] Comment on above: Order Comment: Specimen Type : BLOOD SPECIMEN Ordering Facility: [facility] Address: [address] [place] [address], [place] [address] Result Comment: Rapid plasma reagin (RPR) test detects non-treponemal antibodies. R CO may be reactive in a variety of infectious and non-infectiou s conditions. Correlation with clinical picture and with treponemal antibody results is required for final interpretation. Performed By: #### [id number] # ### [facility] CLIA [id number] [address] [place] [address] OF [facility] CNOV on 03-24-2022 CNOV Office Visit (UCWSTR) Normal [facility] and CHEL Pulido ([id number]) 1980 [facility] Date Time Provider Department 03/24/22 2:45 [...] Asthma Gout HTN (hypertension) Sinusitis 02/[address] [facility] PAST SURGICAL HISTORY Procedure Laterality Date NONE [...] and atraumatic. Nose: Nose normal. Mouth/Throat: Lips: Crivitz. Mouth: Mucous membranes are moist. Pulmonary: Effort: [...] - AMOXICILLIN 875 MG TABLET Chadwick Rodriguez APRN.CLEANING TECHNICIAN Allergies As of Date: 03/24/2022 Noted Allergy Reactio n ASA (ASPIRIN) 01/14/2015 5 - Intolerance Date Reviewed: 03/24/2022 Reviewed by: Chadwick Rodriguez APRN.CLEANING TECHNICIAN - Fully Assessed Reason for Visit: Dental [...] 03/24/22 JAMIE on 10-28-2021 [id number] 1980 [facility] Date Time Provider Department 10/28/21 MADIHA ROBLES KATIANA During your visit today, we recorded the following inf ormation about you: Madiha Robles APRN.CLEANING TECHNICIAN 10/28/2021 12:58 PM Signed Patient also tested [...] AM Signed ----- Message from Madiha Robles APRN.CLEANING TECHNICIAN sent at 10/29/2021 8:10 AM EDT ----- [...] MADIHA ROBLES on 10/29 JAMIE Telephone (UCWSTR) [facility][id number][facility] 1980 [facility] Time Provider Department 10/28/21 MADIHA ROBLES [facility] During your visit today, we recorded the [...] AMPLIFICATION on Lactobacillus Positive Abnormal Negative for [facility] crispatus+gasseri+jensenii + bacterial [place] Gardnerella vaginalis + Atopobium vaginos is vaginae rRNA BRANDON+probe Ql (Vag fld) Comment on above: Order Comment: Specimen Type : SWAB Ordering Facility: [facility] Address: [address] [place] [address] Performed By: #### BVAMP ### # [facility] CLIA [id number] [address] [place] [address] [place] Bacteria Ur Cult on 10-27-2021 Bacteria identified ORGANISM ID: 1 Normal [facility] Cx Nom (U) 10,000 -<50,000 CFU/ml Mixed microbiota [place] No further workup. Mixed monet robiota can be due to???urine???contamination with skin bacteria at time of collection or presence of a long-term urinary catheter. If a new culture is needed, please conside r re-education of the patient on proper midstream co llection technique or straight catheterization for???u rine???collection. Comment on above: Performed By: #### [id number], 5195-3 #### [facility] CLIA [id number] [address] [place] [address] OF [place] C. trachomatis+N. gonorrhoeae DNA BRANDON+pr obe Ql (Unsp spec) on 10-27-2021 C. trachomatis DNA Positive Abnormal Negative for Chlamydia [facility] BRANDON+probe Ql (Unsp trachomatis by [facility]levela nd spec) amplificaton Comment on above: Order Comment: Specimen Type : BLOOD SPECIMEN Ordering Facility: [facility] Address: [address] [place] [address] Performed By: #### [id number], 5195-3 #### [facility] [place] [id number] [address] [place] [address] [place] N. gonorrhoeae DNA Negative Normal Negative for Neisseria [facility] BRANDON+probe Ql (Unsp gonorrhoeae by [facility] nd spec) amplification Comment on above: Order Comment: Specimen Type : BLOOD SPECIMEN Ordering Facility: [facility] Address: [address] [place] [address] Performed By: #### [id number], 5195-3 #### [facility] [place] [id number] [address] [place] [address] OF [place] TRACEY / TRICHOMONAS AMPLIFICATION on 10-27-2021 C. glabrata RNA Negative Normal Negative for Tracey [facility] BRANDON+probe Ql (Vag fld) glabrata [facility] land Comment on above: Order Comment: Specimen Type : SWAB Ordering Facility: [facility] Address: [address] [place], [place] [address] Performed By: #### CVTV #### [facility] [place] [id number] [address] [place] [address] [place] Tracey albicans, C. Negative Normal Negative for Tracey [facility] dubliniensis, C. species [place] parapsilosis, and C. tropicalis RNA BRANDON+probe Ql (Vag fld) Comment on above: Order Comment: Specimen Type : SWAB Ordering Facility: [facility] Address: [address] [place] [address], [place] [address] Performed By: #### CVTV #### [facility] CLIA [id number] [address] [place] [address] OF [place] T. vaginalis DNA Negative Normal Negative for Trichomonas [facility] BRANDON+probe Ql (Unsp vaginalis by amplifica tion [place] spec) Comment on above: Order Comment: Specimen Type : SWAB Ordering Facility: [facility] Address: [address] [place] [address] [place] [address] Performed By: #### CVTV #### [facility] CLIA [id number] [address] [place] [address] OF [place] CNOV on 10-27-2021 CNOV Office Visit (UCWSTR) Normal [facility] CHEL MARTE ([id number]) 1980 [facility] Date Time Provider Department 10/27/21 6:15 PM KASEY WARNER [facility] During your visit today, we recorded the following inf ormation about you: Temperature Pulse Respiration Blood pressure 98.4 degrees 104/minute 18/minute 140/80 Weight Last Period 86 kg 10/22/21 Kasey Warner PA-C 10/27/2021 7:08 PM Signed This note was created using [employer]. Subjective Chel Marte is a 41 year old female. HPI Patient presents with left ear carcamo for 3 days. She den ies cold symptoms. No recent swimming. She denies drainage out of the ear. N o hearing changes. No fevers or chills. She also complains of vaginal discha rge. [facility] for [facility]. She was treated fo r a UTI/yeast infection there but symptoms have returned. She is not sexually active for the past 2 months since in [facility]. She does have some lower back pain. [...] - HTN (hypertension) - Sinusitis 02/[address] [facility] Current Outpatient Medications Medication Sig Dispense Refill [...] nd Clinic COLOR UA (POCT) Dark yellow [facility] inic GLUCOSE UA (POCT) Negative Negative mg/dL [facility] HEMOGLOBIN/BLOOD UA (POCT) Negative Negative [facility] KETONE UA (POCT) Negative Negative mg/dL [facility] LEUKOCYTES UA (POCT) Trace Abnormal Negative [facility] NITRITE UA (POCT) Negative Negative [facility] PH UA (POCT) 6.0 4.5 - 8.0 [facility] Ql (U) Negative Negative mg/dL [facility] linic SPECIFIC GRAVITY UA (POCT) >=1.030 1.005 - 1.030 [facility] UROBILINOGEN UA (POCT) 0.2 E.U./dL Normal E.U./dL [facility] Vital Signs Date Time Vital Sign Value Performing Clinician Facilit y 10-27-2021 Body temperature 98.4 [degF] Kasey Warner PA-C [facility] 18:-399 Work Phone: 10-27-2021 Body weight 86 kg [facility]15 Work Phone: 10-27-2021 Diastolic blood 80 mm[Hg] Kasey Warner PA-C [facility] 18:15-399 pressure Work Phone: 10-27-2021 Heart rate 104 /min [facility] Work Phone: 10-27-2021 Respiratory rate 18 /min Kasey Warner PA-C [facility] 18:15 Work Phone: 10-27-2021 SaO2% (BldA) [Mass 98 % Kasey Warner PA-C [facility] 18: fraction] Work Phone: 10-27-2021 Systolic blood 140 mm[Hg] Kasey Warner PA-C [facility]inic 18:15-040 pressure Work Phone: Encounters Encounter Date Encounter Type Care Provider Facility Start: 03-24-2022 ambulatory Facility:[facility] End: 03-24-2022 [facility] Start: 10-28-2021 Telephone encounter Madiha Robles APRN.C [facility] Work Phone: Comment on above: Results Start: 10-27-2021 ambulatory Facility:[facility] End: 10-27-2021 Hospital Start: 10-27-2021 Patient encounter Kasey Warner PA-C [facility] End: 10-27-2021 procedure Work Phone: Comment on above: Vaginal discharge (Primary D x); Urinary frequency; Otalgia of left ear Start: 03-30-2018 Emergency department [facility] Facility: [place] End: 03-30-2018 patient visit Start: 04-02-2017 Ambulatory [facility] End: 04-02-2017 Procedures Date Procedure Procedure Detail Performing Clin ician Start: 10-27-2021 Urnls dip stick/tablet Kasey Warner PA-C rgnt auto w/o microscopy Work Ph one: Plan of Treatment Date Care Activity Detail Author Start: Influenza vaccination [facility] 12-29-2021 Start: 10-27-2021 Bacteria identified in URINE CULTURE [facility] End: 12-27-2021 Urine by Culture Microbiology Routine Work Phone : Urinary frequency Expected: 10/27/2021, Expires: 12/27/2021 Comment on above: Expected: 10/27/2021, s: 12/27/2021 Start: 2012 HPV TESTING HPV TESTING [facility] Start: 09-20-2003 PAP TESTING PAP TESTING [facility] Start: 2001 Urine microalbumin DTAP,TDAP,TD (1 - Tdap) [facility] profile Start: 2000 HEPATITIS C SCREENING HEPATITIS C SCREENING [facility] Start: 2000 HIV SCREENING HIV SCREENING [facility] ic Start: 1994 Adult depression DEPRESSION SCREENING [facility] screening assessment Start: 1988 PNEUMOCOCCAL (1 - PCV) PNEUMOCOCCAL (1 - PCV) [facility] Start: 03-22-1983 COVID-19 VACCINE (#1) COVID-19 VACCINE (#1) [facility] BACTERIAL VAGINOSIS BACTERIAL VAGINOSIS [facility] AMPLIFICATION AMPLIFICATION Lab Work Phone: Routine Vaginal discharge Ordered: 10/27/2021 Comment on above: Ordered: 10/27/2021 TRACEY / TRICHOMONAS TRACEY / TRICHOMONAS [facility] AMPLIFICATION AMPLIFICATION Lab Routine Work P jason: Vaginal discharge Ordered: 10/27/2021 Comment on above: Ordered: 10/27/2021 Chlamydia trachomatis+Neisseria GC/CHLAMYDIA DNA DET Lab [facility] gonorrhoeae DNA [Presence] in Routine Vaginal Wo rk Phone: Unspecified specimen by BRANDON with discharge Order ed: probe detection 10/27/2021 Comment on above: Ordered: 10/27/2021 Payers Date Payer Category Payer Medicaid [id number] 2013 Medicaid [facility] MEDICAID [id number] [employer]ICA[employer] [id number] 2013-Present [phone] [address] [place] [address] Medicaid Social History Date Type Detail Facility Start: 12-29-2015 Tobacco smoking status Smokes tobacco daily [facility] NHIS Start: 12-29-2015 Tobacco use and exposure Smokeless tobacco [facility] non-user Start: 10-27-2021 Alcohol intake Current non-drinker of [facility] alcohol (finding) Start: 1980 Sex Assigned At Not on file [facility] Start: 10-17-2021 Exposure to SARS-CoV-2 Not sure [facility] End: 10-27-2021 (event) Progress note 03-24-2022 Note Date & Type Note Facility 03-24-2022 Note HNO ID: [id number] [facility] Author: Chadwick Rodriguez APRN.CLEANING TECHNICIAN Service: ? Author Type: Nurse Practitioner Type: [...] Asthma Gout HTN (hypertension) Sinusitis 02/[address] [facility] PAST SURGICAL HISTORY Procedure Laterality Date NONE [...] and atraumatic. Nose: Nose normal. Mouth/Throat: Lips: Crivitz. Mouth: Mucous membranes are moist. Pulmonary: Effort: [...] - AMOXICILLIN 875 MG TABLET Chadwick Rodriguez APRN.CLEANING TECHNICIAN Note 11-03-2021 Telephone Encounter - Marianne Ean FRANCES - 11/03/2021 10:00 AM EDTTelephone Encounter - Marianne Mckoy LPN - 11/03/2021 9:40 AM EDTTelephone Encounter - Marianne Besabdelrahman FRANCES - 11/01/2021 10:50 AM EDT Note Date & Type Note Facility 11-03-2021 Miscellaneous Notes [facility] Letter mailed to patient.Marianne Mckoy LPN [...] Note Facility 10-28-2021 Miscellaneous Notes [facility] Phone call placed no answer unable [...] Type Note Facility 10-27-2021 Note HNO ID: [id number] [facility] Keven franklin Author: Kasey Warner PA-C Service: ? Author Type: Physician Fire Management Specialist Type: Progress Notes Filed: 10/27/2021 7:08 PM Note Text: This note was created using [employer] IDE. Subjective Chel Marte is a 41 year old female. HPI Patient presents with left ear carcamo for 3 days. She denies cold symptoms. No recent swimming. She denies drainage out of the ear. No hearing changes. No fevers or chills. She also c omplains of vaginal discharge. [facility] for [facility] . She was treated for a UTI/yeast infection there but symptoms have return ed. She is not sexually active for the past 2 months since in [facility]. She leos s have some lower back [...] - HTN (hypertension) - Sinusitis 02/[address] [facility] Current Outpatient Medications Medication Sig Dispense Refill [...] Facility 10-27-2021 History of Present [facility] illness Narrative This note was created using NoteWriter. Subjective Chel Marte is a 41 year old female. HPI Patient presents with left e ar carcamo for 3 days. She denies cold symptoms. No recent swimming. She denies drainage out of the ear. No hearing changes. No fevers or chills. She also complains of vaginal di scharge. She was in [facility] [place] a week ago for 65 days. She was treated for a UTI/yeast infection there but symptoms have returned. She is not sexually active for the past 2 months since in [facility]. She leos s have some lower back [...] Asthma Gout HTN (hypertension) Sinusitis 02/[address] [facility] Current Outpatient Medications Medication Sig Dispense Refill [...] Otalgia, unspecified [facility] Evaluation note Note Date & Type Note Facility Evaluation note Diagnosis BV (bacterial vaginosis)- Primary Vaginitis and vulvovaginitis, unspecifie d [facility] Summary Purpose Family History No Family History Records FoundNo Family History Records FoundNo Family History Records Found Advance Directives No Advanced Directives Records FoundNo Advanced Directives Records FoundNo Advanced Directives Records Found Additional Source Comments INFORMATION SOURCE (unrecognized section and content) DATE CREATED AUTHOR AUTHOR'S ORGANIZ ATION 10/23/2017 [facility] DATE CREATED AUTHOR AUTHOR'S ORGANIZATIO N 04/09/2018 [facility] DATE CREATED AUTHOR AUTHOR'S ORGANIZATIO N 04/28/2022 [facility] Keven franklin Source Comments (unrecognized section [...] alcohol or drug abuse patient. [facility] the event this information is protected by t catie Federal Confidentiality of Alcohol and Drug Abuse Patient Records regulations: This information has been disclosed to you from records protected by Federal confid entiality rules ( The Federal rules restrict any use of th e information to criminally investigate or prosecute any alcohol or drug abuse [place] ent. [facility] the event this information is protected by the Federal Confidentiality of Alcohol and Drug Abuse Patient Records regulations: This inform ation has been disclosed to you from records protected by Federal confidentiality rul es ( The Federal rules restrict any use of the in formation to criminally investigate or prosecute any alcohol or drug abuse [place]ompson ent. [facility] Reason for Visit (unrecognized section a [...] BE BASED ON THE PRIMARY CLINICAL RECORDS. [employer] provides no warranty or guarantee of the accuracy or completeness of information in this document.
[2022-07-30 21:24] LABS: Lactic Acid 2.3 mmol/L (0.4-1.9)
[2022-07-30] MEDS: guaiFENesin 1,200 MG Tablet 1200 MG PO (22:38)
[2022-07-30] MEDS: 0.9% Saline Lock 10 ML Syringe IV (22:38)
[2022-07-30 23:12] LABS: Bacteria 0 SEEN /hpf (None Seen); Mucous, Urine 0 SEEN /hpf (<or=2+); Red Blood Cells-Urine 0 SEEN /hpf (0-5); White Blood Cells 0 SEEN /hpf (0-5)
[2022-07-30 23:46] LABS: Color, Urine Yellow (Yellow); Glucose, Dipstick Normal (Normal); Ketone-Dipstick Negative (Negative); Leukocyte Esterase-Dipstick 100 /ul (Negative); Nitrite-Dipstick Negative (Negative); Occult Blood-Urine 10 /ul (Negative); Protein-Dipstick 30 mg/dl (Negative); Urine Bilirubin Dipstick Negative (Negative); Urine Clarity Clear (Clear); Urine Urobilinogen Normal (Normal)
[2022-07-30 23:58] LABS: Squamous Epithelial Cells - UA 0-5 SEEN /hpf (5-10)
[2022-07-31] VITALS (20 sets, daily range): BP systolic 119–168; BP diastolic 92–114; PULSE 114–124; RESP 17–33; TEMP 36.1–36.9; O2SAT 93–100; BMI 29.3
[2022-07-31] MEDS: Ipratropium/Albuterol Sulfate 3 ML AMPUL.NEB INHALATION ×3 (01:49→21:10)
[2022-07-31] MEDS: 0.9% Saline Lock 10 ML Syringe IV ×6 (05:02→22:52)
[2022-07-31 06:25] LABS: M R Staph aureus DNA By PCR Negative (Negative); Probe Check PASS; Specimen Processing Control PASS
[2022-07-31 06:33] LABS: Hematocrit 34.4 % (37-47); Hemoglobin 10.1 g/dL (12.0-15.0); Mean Corp Hgb Conc 29.4 g/dL (32-36); Mean Corpuscular Hgb 21.9 pg (27.0-32.0); Mean Corpuscular Volume 74.6 fL (81-99); Mean Platelet Vol. 9.4 fl (6.2-12.0); Platelet Count 555 K/mm3 (150-450); RBC Distribution Width CV 16.9 % (11.6-14.6); RBC Distribution Width SD 44.9 fl (35.1-43.9); Red Blood Count 4.61 M/mm3 (4.2-5.4); White Blood Count 16.5 K/mm3 (4.4-11.0)
[2022-07-31 07:03] LABS: ALB/GLOB Ratio 0.5 RATIO (0.9-2.4); AST(SGOT) 25 U/L (15-37); Alanine Aminotransfer ALT/SGPT 14 U/L (13-56); Albumin, Serum 2.4 g/dL (3.2-5.0); Alkaline Phosphatase 86 U/L (45-117); Anion Gap 7 (5-15); BUN 17 mg/dL (7-18); BUN/Creat Ratio 22.9 RATIO (10-20); Calcium,Total 8.7 mg/dL (8.5-10.1); Chloride 108 mmol/L (98-107); Creatinine, Serum 0.74 mg/dL (0.55-1.02); EST Glomerular Filtration Rate 92 mL/min (>60); Est Glom Filt Rate - Afr Amer 112 mL/min (>60); Estimated Creatinine Clearance 106.67 ml/min; Globulin 4.8 g/dL (2.2-4.2); Glucose 145 mg/dL (74-106); Potassium 3.9 mmol/L (3.5-5.1); Protein, Total 7.2 g/dL (6.4-8.2); Sodium Level 137 mmol/L (136-145); Thyroid Stim Hormone (TSH) 1.28 uIU/mL (0.358-3.74)
--- NOTE | 2022-07-31 10:00 | CASEMGMT ---
CB LEVIN Face to Face with patient for initial transition planning/care coordination assessment. CB LEVIN introduced self and role at [facility]. Patient lying in bed, alert and oriented, significant other at bedside. Patient willing to participate in assessment and is able to answer all questions appropriately. Care providers, pharmacy, and demographics verified. Patient wishes to discharge home, denies need for home health at this time. Patient states she has no further needs or concerns at this time. CM to follow for discharge planning needs that may arise. PCP: No PCP, list provide and encouraged patient to schedule appointment, patient voiced understanding Specialists: Flavia, oncologist Preferred Pharmacy: [facility] Insurance: [employer] Prescription Benefit: yes Living Will/HPOA: none LNOK: daughter, signficant other Living Arrangements: Patient lives with significant other and 22 yo daughter in a second floor apartment. Patient is independent at home and is able to ambulate stairs with frequent breaks. Transportation: significant other DME/HHC: Patient denies DME or previous HHC. Will monitor for home oxygen at discharge, no preferences on DME Disposition Plan: Patient to discharge home with family support and follow-up plans in place. Will monitor for home oxygen at discharge. Tressa FRENCH, RN, CM
[2022-07-31] MEDS: guaiFENesin 1,200 MG Tablet 1200 MG PO ×2 (10:31→21:52)
[2022-07-31] MEDS: Enoxaparin 40 MG/0.4 ML Syringe SC (10:32)
[2022-07-31] MEDS: levoFLOXacin IV 750 MG/150 ML BAG 100 MG IV (10:33)
--- NOTE | 2022-07-31 10:54 | PN.HOSP_ITS ---
Reason for Visit Reason for Visit: Diagnoses Malignant neoplasm of unspecified site of left female breast (07/30/22) Malignant neoplasm of unspecified site of unspecified female breast (07/30/22) Secondary malignant neoplasm of unspecified lung (07/30/22) Unspecified asthma, uncomplicated (07/30/22) Dyspnea, unspecified (07/30/22) Hypoxemia (07/30/22) Subjective Subjective Patient is a 41-year-old lady with history of breast CA with mets to the lungs admitted with shortness of breath diagnosed with sepsis secondary to suspected upper respiratory tract infection admitted to a monitored bed for further management Objective Data Objective Data Vital Signs: Vital Signs Temp Pulse Resp BP Pulse Ox O2 Del Method O2 Flow Rate 97.7 F L 120 H 30 H 168/114 H 96 Nasal Cannula 6 07/31/22 10:46 07/31/22 10:46 07/31/22 10:46 07/31/22 10:46 07/31/22 10:46 07/31/22 10:46 07/31/22 10:46 FiO2 50 07/30/22 19:06 Oxygen Flow Rate (L/min) 6 Oxygen Delivery Method Nasal Cannula Weight: 89.8 kg Body Mass Index (BMI) 29.3 Intake & Output: Intake and Output for Last 24 Hours 07/29/22 07/30/22 07/31/22 23:59 23:59 23:59 Intake Total 847.5 / 1327.5 1695 / 1695 Balance 847.5 / 1327.5 1695 / 1695 Lab / Micro Data Result Diagrams: 07/31/22 06:15 07/31/22 06:15 Labs: Laboratory Results - last 24 hr 07/30/22 15:43: WBC 17.5 H, RBC 5.03, Hgb 11.1 L, Hct 36.4 L, MCV 72.4 L, MCH 22.1 L, MCHC 30.5 L, RDW Std Deviation 42.5, RDW Coeff of Martha 16.6 H, Plt Count 631 H, MPV 9.3, Immature Gran % (Auto) 1.400 H, Neut % (Auto) 81.2 H, Lymph % (Auto) 10.9 L, [place] % (Auto) 6.2, Eos % (Auto) 0.1, Baso % (Auto) 0.2, Absolute Neuts (auto) 14.2 H, Absolute Lymphs (auto) 1.91, Nucleated RBC % 0.2 07/30/22 15:43: D-Dimer Quant (PE/DVT) 7.45 H* 07/30/22 15:43: Sodium 135 L, Potassium 4.2, Chloride 104, Carbon Dioxide 23.0, Anion Gap 8, BUN 21 H, Creatinine 0.75, Estim Creat Clear Calc 105.25, Est GFR (MDRD) Af Amer 110, Est GFR (MDRD) Non-Af 91, BUN/Creatinine Ratio 27.9 H, Glucose 108 H, Calcium 9.5, Troponin I High Sens 63 H 07/30/22 15:43: B-Natriuretic Peptide 431.7 H 07/30/22 15:55: Lactic Acid 2.9 H* 07/30/22 19:10: PT 17.6 H, INR 1.5 07/30/22 19:10: Magnesium 1.9, Lactate Dehydrogenase 343 H, Troponin I High Sens 61 H 07/30/22 19:10: Lactic Acid 2.3 H* 07/30/22 23:05: Urine Color Yellow, Urine Clarity Clear, Urine pH 5.0, Ur Specific [place] 1.020, Urine Protein 30 H, Urine Glucose (UA) Normal, Urine Ketones Negative, Urine Occult Blood 10 H, Urine Nitrite Negative, Urine Bilirubin Negative, Urine Urobilinogen Normal, Ur Leukocyte Esterase 100 H, Urine RBC 0 SEEN, Urine WBC 0 SEEN, Ur Squamous Epith Cells 0-5 SEEN, Urine Bacteria 0 SEEN, Urine Mucus 0 SEEN 07/31/22 00:09: MRSA (PCR) Negative 07/31/22 06:15: WBC 16.5 H, RBC 4.61, Hgb 10.1 L, Hct 34.4 L, MCV 74.6 L, MCH 21.9 L, MCHC 29.4 L, RDW Std Deviation 44.9 H, RDW Coeff of Martha 16.9 H, Plt Count 555 H, MPV 9.4 07/31/22 06:15: Sodium 137, Potassium 3.9, Chloride 108 H, Carbon Dioxide 22.0, Anion Gap 7, BUN 17, Creatinine 0.74, Estim Creat Clear Calc 106.67, Est GFR (MDRD) Af Amer 112, Est GFR (MDRD) Non-Af 92, BUN/Creatinine Ratio 22.9 H, Glucose 145 H, Calcium 8.7, Total Bilirubin 0.20, AST 25, ALT 14, Alkaline Phosphatase 86, Total Protein 7.2, Albumin 2.4 L, Globulin 4.8 H, Albumin/Globulin Ratio 0.5 L, TSH 1.28 Micro: Microbiology 07/30/22 20:52 Mucosa - Nasopharyngeal Respiratory Panel (PCR) - Final 07/30/22 15:48 Nasal Secretion SARS-CoV-2 & FLU Antigen (Rapid) - Final Radiography Diagnostic Testing: Radiology Impression Chest X-Ray 07/30/22 15:41 IMPRESSION: Left-sided effusion with diffuse nodular opacities bilaterally. Further evaluation with CT scan is recommended. Electronically Signed: Marbin Dhillon MD at 17:03 EDT , Chest CTA 07/30/22 16:36 IMPRESSION: 1. Large low-density mass in the left breast suspicious for malignancy. 2. Too numerous to count pulmonary nodules seen throughout both lungs compatible with extensive metastatic disease. There are enlarged left axillary lymph nodes which are likely metastatic. 3. Moderate left-sided pleural effusion. There is no evidence of pulmonary embolus. Electronically Signed: Marbin Dhillon MD at 17:44 EDT , Physical Exam Narrative GENERAL: cooperative HEENT: Atraumatic; normocephalic EYES; Anicteric, Normal Conjunctiva NECK; supple, normal thyroid, RESPIRATORY: Diminished to auscultation CARDIOVASCULAR: Regular S1 S2, GI: soft, normoactive bowel sounds, : No Renal angle tenderness; EXTREMITIES: No edema, no clubbing, MUSCULOSKELETAL: no muscle wasting NEURO: Awake; no lateralizing signs. SKIN: No Rash PSYCH; Flat affect Assessment & Plan Assessment/Plan (1) Acute dyspnea: (2) Breast cancer metastasized to lung: PLAN: Plan Patient is a 41-year-old lady with history of breast CA with mets to the lungs admitted with shortness of breath diagnosed with sepsis secondary to suspected upper respiratory tract infection admitted to a monitored bed for further management 1. Sepsis (present on admission) ? Secondary to suspected upper respiratory tract infection patient managed with Levaquin 2. Breast CA ? 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 Patient was found to have suspected mets to the left lung patient had apparently followed up with oncology as outpatient plan is patient to resume care. 3. Acute hypoxia ? Secondary to a combination of patient upper respiratory tract infection her lung meds as well as history of asthma placed on supplemental oxygen titrated to keep saturation greater than 90 4. Elevated troponin ? Secondary to demand ischemia from patient hypoxia 5. Tobacco dependence - Counseled on cessation, offered nicotine patch for tobacco cravings 6. Mild intermittent asthma ? Aerosol treatments as needed 7. DVT prophylaxis ? SC Lovenox Time spent in the patient's overall evaluation,decision-making process, review of diagnostic data, adjustment of management, discussion with other providers, nursing nursing and ancillary staff involved in patient's care documentation, 40 minutes Charges/Coding Visit Charges Inpatient E&M: 93565 Subs Hosp L2
--- NOTE | 2022-07-31 11:33 | CON.PCM.ON_ITS ---
Assessment & Plan Assessment/Plan (1) Breast cancer, left: Status: Acute Code(s): C50.912 - Malignant neoplasm of unspecified site of left female breast Plan: 41-year-old female, premenopausal with self neglected triple negative stage IV metastatic left breast cancer to left axillary lymph nodes, extensive lung metastases and a left pleural effusion likely malignant. Initial diagnosis was September 2021, patient did not follow-up with oncology recommendations then and disappeared until July 2022 when she became increasingly dyspneic with extensive metastases in the chest. Plan: 1. Therapeutic and diagnostic left pleurocentesis. 2. I discussed with the patient the stage, prognosis, systemic therapy (chemotherapy plus or minus immunotherapy with PD-L1 inhibitor) with a palliative intent plus or minus a modest survival benefit. She expressed interest in pursuing treatment. 3. Follow-up once medically stable and discharged with Dr. Alejandro. 4. Discussed with Dr. Tsai. Patient was seen with her fianc?. Thien Chen MD Interior Design Professional, [facility] Divisions of Medical Oncology & Hematology Department of Internal Medicine [place] [id number] This note was generated using a voice recognition system software. Although it was reviewed by the author prior to finalization, it may still contain incorrect words, spelling, and punctuation that were not noted when reviewing prior to saving. If a clinically significant typo or inaccurately typed phrase is noted, please notify the author. (2) Metastasis to lung: Status: Acute Code(s): C78.00 - Secondary malignant neoplasm of unspecified lung (3) Regional lymph node metastasis present: Status: Acute Code(s): C77.9 - Secondary and unspecified malignant neoplasm of lymph node, unspecified (4) Pleural effusion: Status: Acute Code(s): J90 - Pleural effusion, not elsewhere classified HPI Consult Data Date of Service:: 07/31/22 PCP / Referring Provider: No Primary Care Phys Attending: Dr. Wilson Encarnacion MD Chief Complaint Chief Complaint: Dyspnea History of Present Illness History of Present Illness: 41-year-old premenopausal female who was diagnosed with at least locally advanced triple negative left breast cancer in September 2021, seen by Dr. Alejandro in November 2021 who advised staging to be followed by chemo plus or minus immunotherapy. Patient disappeared from follow-up until July 30, 2022 when she was hospitalized with increasing dyspnea. Advanced Directives Power of Fisheries Director: No Living Will: No PFSH Medical History (Updated 07/31/22 @ 11:[address] Thien Chen MD) Acid reflux Asthma Back problem Breast cancer, left Gout HTN (hypertension) Metastasis to lung Pleural effusion Regional lymph node metastasis present Request for sterilization Home Medications albuterol sulfate 90 mcg/actuation aerosol inhaler 1 - 2 puff inhalation Q4H PRN PRN Asthma 03/22/19 [History Last Taken Unknown] lisinopril 2.5 mg tablet 2.5 mg PO DAILY 03/22/19 [History Last Taken Unknown] Allergy/AdvReac Type Severity Reaction Status Date / Time Penicillins Allergy Rash Verified 07/30/22 16:21 aspirin AdvReac Abd Verified 07/30/22 16:21 cramps/diarrhea hydrocodone bitartrate AdvReac Abd Verified 07/30/22 16:21 [From Vicodin] cramps/diarrhea Family History Aunt Breast cancer Mother Diabetes Uncle Cancer skin cancer Father CVA (cerebral vascular accident) Daughter Thyroid disorder Surgical History S/P tubal ligation Social History Smoking Status: Current every day smoker tobacco type: cigarettes alcohol intake: never ROS Constitutional Constitutional: Denies fever(s), night sweats or weight loss ENT HEENT: Denies dysphagia Cardiovascular Cardiovascular: Reports dyspnea, dyspnea at rest and edema; Denies chest pain or palpitations Respiratory/Chest Respiratory/Chest: Reports cough, dyspnea, wheezing, breast mass, breast pain and breast swelling Gastrointestinal Gastrointestinal: Denies abdominal pain, change in bowel habits, hematochezia, melena, nausea or vomiting Genitourinary Genitourinary: Reports hematuria and other Details: Last menstrual period June 2022 Musculoskeletal Musculoskeletal: Denies back pain Integumentary Integumentary: Denies new lesions or rash Neurologic Neurologic: Denies abnormal speech, focal weakness or numbness Psychiatric Psychiatric: Reports anxiety Hematologic/Lymphatic Hematologic/Lymphatic: Denies easy bleeding or easy bruising Physical Exam Narrative ECOG 2, on oxygen Const alert and oriented x3 Nutritional Appearance: obese HEENT normocephalic Eyes no scleral icterus Neck no lymphadenopathy and no JVD Lymph Lymphatic: lymphadenopathy Lymphadenopathy Laterality: left Positive for hard and matted Lymphatic Narrative: Left axilla Chest Chest Narrative: Left breast enlarged, deformed, with a hard mass and bulky left axillary lymphad enopathy. No skin ulceration Resp Resp Narrative: Patient is on oxygen, breath sounds overall decreased over both lung berrios, absent over the left lower hemithorax consistent with a pleural effusion Auscultation: rhonchi, wheezes and diminished lung sounds left lower and diffuse Cardio regular rate and regular rhythm GI soft to palpation, non-tender and no masses Extremity no clubbing, cyanosis or edema Skin no rashes or lesions noted Neuro CN's II-XII intact bilaterally, moves all extremities and no focal motor deficits Psych mental status grossly normal and cooperative Mood & Affect: anxious Vital Signs Temperature 97.7 F L 07/31/22 10:46 Temperature Source Temporal 07/31/22 10:46 Pulse Rate 120 H 07/31/22 10:46 Pulse Strength Normal (2+) 07/30/22 22:00 Respiratory Rate 30 H 07/31/22 10:46 Respiratory Effort Labored 07/31/22 08:16 Respiratory Depth Normal 07/31/22 02:40 Respiratory Pattern Tachypnea 07/31/22 08:16 Blood Pressure 168/114 H 07/31/22 10:46 Blood Pressure Mean 132 07/31/22 10:46 Blood Pressure Source Monitor 07/31/22 10:46 Blood Pressure Position Semi-Fowlers 07/31/22 10:46 Blood Pressure Location Right Arm 07/31/22 10:46 Pulse Ox 96 07/31/22 10:46 Oxygen Delivery Method Nasal Cannula 07/31/22 10:46 Oxygen Flow Rate (L/min) 6 07/31/22 10:46 Fraction of Inspired Oxygen (FIO2) 50 07/30/22 19:06 Laboratory Results - last 24 hr 07/30/22 15:43: WBC 17.5 H, RBC 5.03, Hgb 11.1 L, Hct 36.4 L, MCV 72.4 L, MCH 22.1 L, MCHC 30.5 L, RDW Std Deviation 42.5, RDW Coeff of Martha 16.6 H, Plt Count 631 H, MPV 9.3, Immature Gran % (Auto) 1.400 H, Neut % (Auto) 81.2 H, Lymph % (Auto) 10.9 L, [place] % (Auto) 6.2, Eos % (Auto) 0.1, Baso % (Auto) 0.2, Absolute Neuts (auto) 14.2 H, Absolute Lymphs (auto) 1.91, Nucleated RBC % 0.2 07/30/22 15:43: D-Dimer Quant (PE/DVT) 7.45 H* 07/30/22 15:43: Sodium 135 L, Potassium 4.2, Chloride 104, Carbon Dioxide 23.0, Anion Gap 8, BUN 21 H, Creatinine 0.75, Estim Creat Clear Calc 105.25, Est GFR (MDRD) Af Amer 110, Est GFR (MDRD) Non-Af 91, BUN/Creatinine Ratio 27.9 H, Glucose 108 H, Calcium 9.5, Troponin I High Sens 63 H 07/30/22 15:43: B-Natriuretic Peptide 431.7 H 07/30/22 15:55: Lactic Acid 2.9 H* 07/30/22 19:10: PT 17.6 H, INR 1.5 07/30/22 19:10: Magnesium 1.9, Lactate Dehydrogenase 343 H, Troponin I High Sens 61 H 07/30/22 19:10: Lactic Acid 2.3 H* 07/30/22 23:05: Urine Color Yellow, Urine Clarity Clear, Urine pH 5.0, Ur Specific [place] 1.020, Urine Protein 30 H, Urine Glucose (UA) Normal, Urine Ketones Negative, Urine Occult Blood 10 H, Urine Nitrite Negative, Urine Bilirubin Negative, Urine Urobilinogen Normal, Ur Leukocyte Esterase 100 H, Urine RBC 0 SEEN, Urine WBC 0 SEEN, Ur Squamous Epith Cells 0-5 SEEN, Urine Bacteria 0 SEEN, Urine Mucus 0 SEEN 07/31/22 00:09: MRSA (PCR) Negative 07/31/22 06:15: WBC 16.5 H, RBC 4.61, Hgb 10.1 L, Hct 34.4 L, MCV 74.6 L, MCH 21.9 L, MCHC 29.4 L, RDW Std Deviation 44.9 H, RDW Coeff of Martha 16.9 H, Plt Count 555 H, MPV 9.4 07/31/22 06:15: Sodium 137, Potassium 3.9, Chloride 108 H, Carbon Dioxide 22.0, Anion Gap 7, BUN 17, Creatinine 0.74, Estim Creat Clear Calc 106.67, Est GFR (MDRD) Af Amer 112, Est GFR (MDRD) Non-Af 92, BUN/Creatinine Ratio 22.9 H, Glucose 145 H, Calcium 8.7, Total Bilirubin 0.20, AST 25, ALT 14, Alkaline Phosphatase 86, Total Protein 7.2, Albumin 2.4 L, Globulin 4.8 H, Albumin/Globulin Ratio 0.5 L, TSH 1.28 Microbiology 07/30/22 20:52 Mucosa - Nasopharyngeal Respiratory Panel (PCR) - Final 07/30/22 15:48 Nasal Secretion SARS-CoV-2 & FLU Antigen (Rapid) - Final Diagnostic Data Chest X-Ray 07/30/22 15:41 IMPRESSION: Left-sided effusion with diffuse nodular opacities bilaterally. Further evaluation with CT scan is recommended. Electronically Signed: Marbin Dhillon MD at 17:03 EDT , Chest CTA 07/30/22 16:36 IMPRESSION: 1. Large low-density mass in the left breast suspicious for malignancy. 2. Too numerous to count pulmonary nodules seen throughout both lungs compatible with extensive metastatic disease. There are enlarged left axillary lymph nodes which are likely metastatic. 3. Moderate left-sided pleural effusion. There is no evidence of pulmonary embolus. Electronically Signed: Marbin Dhillon MD at 17:44 EDT , I personally reviewed patient's CT scan of the chest images and concur with the reported findings
--- NOTE | 2022-07-31 12:45 | US_ITS ---
PROCEDURE: ULTRASOUND GUIDED THORACENTESIS. DATE: July 31, 2022.. INDICATION: Female, 41 years old. Left pleural effusion. PHYSICIAN: Patrice Baron M.D. PROCEDURE: The risks, benefits, and alternatives to the procedure were explained to the patient. The specific risks of bleeding, infection, and pneumothorax requiring chest tube insertion were discussed and accepted. Written informed consent was obtained. Ultrasonographic evaluation of the left lower pleural space was carried out. An adequate pocket was identified. The patient was placed in the sitting, upright position. The overlying skin was prepped and draped in sterile fashion. 1% lidocaine was administered subcutaneously for local anesthesia. Under ultrasound guidance, a 5 [place] thoracentesis needle/catheter system was advanced into the left posterior lower pleural fluid collection. Unsuccessful thoracentesis. Drained. The catheter was removed, and a sterile dressing was applied. US/Thoracentesis W US IMPRESSION: Unsuccessful left thoracentesis. Electronically Signed: Patrice Baron MD at 15:16 EDT ,
[2022-07-31] MEDS: Lidocaine 2% (20 ml mdv) 20 ML Vial INFILT (14:26)
--- NOTE | 2022-07-31 18:57 | EKG12_ITS ---
Test Reason : ROUTINE Blood Pressure : / mmHG Vent. Rate : 121 BPM Atrial Rate : 121 BPM P-R Int : 122 ms QRS Dur : 086 ms QT Int : 328 ms P-R-T Axes : 056 058 018 degrees QTc Int : 465 ms Sinus tachycardia Otherwise normal ECG When compared with ECG of 30-JUL-2022 15:43, MANUAL COMPARISON REQUIRED, DATA IS UNCONFIRMED Confirmed by LEXIE GUY, LAURA ([id number]), online editor ALISSA MERCADO ([id number]) on 08/02/2022 10:11:08 AM Referred By: PERCE Confirmed By:DAVE OWEN MD
--- NOTE | 2022-07-31 21:56 | NURSING ---
VSA override per Physician
[2022-08-01] VITALS (11 sets, daily range): BP systolic 157–168; BP diastolic 116–124; PULSE 101–121; RESP 17–26; TEMP 36.2–36.8; O2SAT 94–97; BMI 29.5
--- NOTE | 2022-08-01 00:59 | EX.EMERGENCY ---
EMERGENCY DOCUMENTATION INITIATED: Date: 07/28/2022 Initiated at beginning of Shift by Charge and Delivery Of [employer]
--- NOTE | 2022-08-01 02:42 | EX.EMERGENCY ---
EMERGENCY DOCUMENTATION INITIATED: Date: 07/28/2022 Time: 1900 Initiated at beginning of shift by Charge and System Validation Engineer
[2022-08-01] MEDS: cloNIDine HCl 0.1 MG Tablet 0.100000000000000006 MG PO ×3 (03:31→17:35)
[2022-08-01] MEDS: 0.9% Saline Lock 10 ML Syringe IV ×3 (05:14→13:29)
[2022-08-01 06:02] LABS: Absolute Lymphocyte Count 0.94 X10^3/uL (0.83-4.51); Absolute Neutrophil Count 26.1 X10^3/uL (2.0-7.7); Basophil# 0.04 X10^3/uL; Basophil% 0.1 % (0-1); Hematocrit 34.2 % (37-47); Lymphocyte # 0.94 X10^3/ul (0.83-4.51); Lymphocyte % 3.3 % (19-41); Mean Corp Hgb Conc 29.2 g/dL (32-36); Mean Corpuscular Hgb 21.7 pg (27.0-32.0); Mean Corpuscular Volume 74.2 fL (81-99); Mean Platelet Vol. 9.5 fl (6.2-12.0); Monocyte# 0.77 X10^3/uL; Monocyte% 2.7 % (0-10); NRBC Flagged by Analyzer 0.1 % (0-5); Neutrophil # 26.08 X10^3/uL (2.7-7.7); Neutrophil % 92.4 % (47-70); POSITIVE DIFFERENTIAL YES; Platelet Count 560 K/mm3 (150-450); RBC Distribution Width CV 17.1 % (11.6-14.6); RBC Distribution Width SD 44.9 fl (35.1-43.9); Red Blood Count 4.61 M/mm3 (4.2-5.4); White Blood Count 28.3 K/mm3 (4.4-11.0)
[2022-08-01 06:05] LABS: Differential Indicated SCAN CRITERIA MET
[2022-08-01 06:40] LABS: Anion Gap 4 (5-15); BUN 19 mg/dL (7-18); BUN/Creat Ratio 33.6 RATIO (10-20); Calcium,Total 9.1 mg/dL (8.5-10.1); Chloride 107 mmol/L (98-107); Creatinine, Serum 0.56 mg/dL (0.55-1.02); EST Glomerular Filtration Rate 126 mL/min (>60); Est Glom Filt Rate - Afr Amer 153 mL/min (>60); Estimated Creatinine Clearance 140.95 ml/min; Glucose 145 mg/dL (74-106); LDH 304 U/L (84-246); Potassium 4.3 mmol/L (3.5-5.1); Sodium Level 135 mmol/L (136-145)
[2022-08-01 07:06] LABS: Microcytosis 1+; Platelet Estimate MOD INC (ADEQ)
[2022-08-01] MEDS: Ipratropium/Albuterol Sulfate 3 ML AMPUL.NEB INHALATION ×4 (07:40→19:25)
--- NOTE | 2022-08-01 07:49 | PN.HOSP_ITS ---
Reason for Visit Reason for Visit: Diagnoses Malignant neoplasm of unspecified site of left female breast (07/30/22) Malignant neoplasm of unspecified site of unspecified female breast (07/30/22) Secondary and unspecified malignant neoplasm of lymph node, unspecified (07/30/22) Secondary malignant neoplasm of unspecified lung (07/30/22) Unspecified asthma, uncomplicated (07/30/22) Pleural effusion, not elsewhere classified (07/30/22) Dyspnea, unspecified (07/30/22) Hypoxemia (07/30/22) Subjective Subjective Patient attempted thoracentesis by interventional radiology today prior was unsuccessful. WBC count is trending up. Added vancomycin to patient's therapy. Objective Data Objective Data Vital Signs: Vital Signs Temp Pulse Resp BP Pulse Ox O2 Del Method O2 Flow Rate 97.1 F L 113 H 18 157/123 H 97 Nasal Cannula 5 08/01/22 05:13 08/01/22 05:13 08/01/22 05:13 08/01/22 05:13 08/01/22 05:13 08/01/22 05:13 08/01/22 05:13 FiO2 50 07/30/22 19:06 Oxygen Flow Rate (L/min) [1 ( 6 Initial Baseline)] Oxygen Flow Rate (L/min) 5 Oxygen Delivery Method [1 ( Nasal Cannula Initial Baseline)] Oxygen Delivery Method Nasal Cannula Weight: 90.5 kg Body Mass Index (BMI) 29.5 Intake & Output: Intake and Output for Last 24 Hours 07/30/22 07/31/22 08/01/22 23:59 23:59 23:59 Intake Total 847.5 / 1327.5 2795 / 2795 Output Total 450 / 450 Balance 847.5 / 1327.5 2345 / 2345 Lab / Micro Data Result Diagrams: 08/01/22 05:40 08/01/22 05:40 Labs: Laboratory Results - last 24 hr 08/01/22 05:40: WBC 28.3 H, RBC 4.61, Hgb 10.0 L, Hct 34.2 L, MCV 74.2 L, MCH 21.7 L, MCHC 29.2 L, RDW Std Deviation 44.9 H, RDW Coeff of Martha 17.1 H, Plt Count 560 H, MPV 9.5, Immature Gran % (Auto) 1.500 H, Neut % (Auto) 92.4 H, Lymph % (Auto) 3.3 L, [place] % (Auto) 2.7, Eos % (Auto) 0.0, Baso % (Auto) 0.1, Absolute Neuts (auto) 26.1 H, Absolute Lymphs (auto) 0.94, Nucleated RBC % 0.1, Platelet Estimate MOD INC, Microcytosis 1+ 08/01/22 05:40: Sodium 135 L, Potassium 4.3, Chloride 107, Carbon Dioxide 24.0, Anion Gap 4 L, BUN 19 H, Creatinine 0.56, Estim Creat Clear Calc 140.95, Est GFR (MDRD) Af Amer 153, Est GFR (MDRD) Non-Af 126, BUN/Creatinine Ratio 33.6 H, Glucose 145 H, Calcium 9.1, Lactate Dehydrogenase 304 H Micro: Microbiology 07/31/22 02:05 Sputum, Expectorated/Coughed Gram Stain - Final 07/30/22 20:52 Mucosa - Nasopharyngeal Respiratory Panel (PCR) - Final 07/30/22 15:48 Nasal Secretion SARS-CoV-2 & FLU Antigen (Rapid) - Final Radiography Diagnostic Testing: Radiology Impression Echocardiogram 07/30/22 18:57 Interpretation Summary The estimated ejection fraction is 55 %. No evidence for diastolic dysfunction. Mild tricuspid valve insufficiency. Trivial pericardial effusion. Ordering Physician: Christianne Shaver Performed By: Aniket Bustamante [facility] Thoracentesis Ultrasound 07/31/22 12:45 IMPRESSION: Unsuccessful left thoracentesis. Electronically Signed: Patrice Baron MD at 15:16 EDT , Physical Exam Narrative GENERAL: cooperative HEENT: Atraumatic; normocephalic EYES; Anicteric, Normal Conjunctiva NECK; supple, normal thyroid, RESPIRATORY: Diminished to auscultation CARDIOVASCULAR: Regular S1 S2, GI: soft, normoactive bowel sounds, : No Renal angle tenderness; EXTREMITIES: No edema, no clubbing, MUSCULOSKELETAL: no muscle wasting NEURO: Awake; no lateralizing signs. SKIN: No Rash PSYCH; Flat affect Assessment & Plan Assessment/Plan (1) Acute dyspnea: (2) Breast cancer metastasized to lung: PLAN: Plan Patient is a 41-year-old lady with history of breast CA with mets to the lungs admitted with shortness of breath diagnosed with sepsis secondary to suspected upper respiratory tract infection admitted to a monitored bed for further management 1. Sepsis (present on admission) ? Secondary to suspected upper respiratory tract infection patient managed with Levaquin ? Patient WBC count trending up added vancomycin to patient's therapy 2. Breast CA ? 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 Patient was found to have suspected mets to the left lung patient had apparently followed up with oncology as outpatient plan is patient to resume care. 3. Acute hypoxia ? Secondary to a combination of patient upper respiratory tract infection her lung meds as well as history of asthma placed on supplemental oxygen titrated to keep saturation greater than 90 4. Elevated troponin ? Secondary to demand ischemia from patient hypoxia 5. Tobacco dependence - Counseled on cessation, offered nicotine patch for tobacco cravings 6. Mild intermittent asthma ? Aerosol treatments as needed 7. DVT prophylaxis ? SC Lovenox 8. Left-sided pleural effusion ? Possibly malignant pleural effusion, Patient attempted thoracentesis by interventional radiology today prior was unsuccessful Time spent in the patient's overall evaluation,decision-making process, review of diagnostic data, adjustment of management, discussion with other providers, nursing nursing and ancillary staff involved in patient's care documentation, 56 minutes Charges/Coding Visit Charges Inpatient E&M: 88764 Subs Hosp L3
[2022-08-01] MEDS: Enoxaparin 40 MG/0.4 ML Syringe SC (10:17)
[2022-08-01] MEDS: guaiFENesin 1,200 MG Tablet 1200 MG PO (10:17)
[2022-08-01] MEDS: levoFLOXacin IV 750 MG/150 ML BAG 100 MG IV (10:19)
--- NOTE | 2022-08-01 14:13 | PHA.PHARE_ITS ---
Consult Pharmacy has been consulted to manage selected antiobiotic: Vancomycin Type of Consult: New start Suspected Infection: Sepsis Prior Doses of Antibiotics Received/Current Regimen: 08/01/22 @1332 Labs: Sodium 135 mmol/L (136-145) L 08/01/22 05:40 Potassium 4.3 mmol/L (3.5-5.1) 08/01/22 05:40 Chloride 107 mmol/L (98-107) 08/01/22 05:40 Carbon Dioxide 24.0 mmol/L (21.0-32.0) 08/01/22 05:40 Anion Gap 4 (5-15) L 08/01/22 05:40 BUN 19 mg/dL (7-18) H 08/01/22 05:40 Creatinine 0.56 mg/dL (0.55-1.02) 08/01/22 05:40 Est GFR (MDRD) Af Amer 153 mL/min (>60) 08/01/22 05:40 Est GFR (MDRD) Non-Af 126 mL/min (>60) 08/01/22 05:40 BUN/Creatinine Ratio 33.6 RATIO (10-20) H 08/01/22 05:40 Glucose 145 mg/dL (74-106) H 08/01/22 05:40 Microbiology: Microbiology 07/31/22 02:05 Sputum, Expectorated/Coughed Gram Stain - Final 07/31/22 02:05 Sputum, Expectorated/Coughed Respiratory Culture - Prelim inary Appears to be normal respiratory sweetie. Further studies to follow. 07/30/22 23:05 Urine, Clean Catch Urine Culture - Preliminary Culture exhibits no growth. 07/30/22 20:52 Mucosa - Nasopharyngeal Respiratory Panel (PCR) - Final 07/30/22 15:48 Nasal Secretion SARS-CoV-2 & FLU Antigen (Rapid) - Final Weight used for dosin.5 kg Estimated Creatinine Clearance: 141 Goal Trough: 10-15 mcg/mL Pharmacy Plan for Drug DosinMG every 12 hours starting 08/02/22 @0130 Pharmacy Service will continue to monitor and adjust dosing as required. Follow-Up Labs: Trough Vancomycin Labs to be done on [date and time ordered]: 08/03/22 @ 0100
[2022-08-02] VITALS (8 sets, daily range): BP systolic 144–168; BP diastolic 88–116; PULSE 112–120; RESP 18–28; TEMP 36.6–36.8; O2SAT 94–98; BMI 29.5
[2022-08-02] MEDS: guaiFENesin 1,200 MG Tablet 1200 MG PO ×3 (00:41→21:18)
[2022-08-02] MEDS: cloNIDine HCl 0.1 MG Tablet 0.100000000000000006 MG PO ×3 (06:40→23:05)
[2022-08-02 06:53] LABS: Absolute Lymphocyte Count 1.06 X10^3/uL (0.83-4.51); Absolute Neutrophil Count 23.3 X10^3/uL (2.0-7.7); Basophil# 0.05 X10^3/uL; Basophil% 0.2 % (0-1); Hematocrit 34.9 % (37-47); Hemoglobin 10.4 g/dL (12.0-15.0); Lymphocyte # 1.06 X10^3/ul (0.83-4.51); Lymphocyte % 4.1 % (19-41); Mean Corp Hgb Conc 29.8 g/dL (32-36); Mean Corpuscular Hgb 21.9 pg (27.0-32.0); Mean Corpuscular Volume 73.6 fL (81-99); Mean Platelet Vol. 9.3 fl (6.2-12.0); Monocyte# 0.93 X10^3/uL; Monocyte% 3.6 % (0-10); NRBC Flagged by Analyzer 0.2 % (0-5); Neutrophil # 23.26 X10^3/uL (2.7-7.7); POSITIVE DIFFERENTIAL YES; Platelet Count 575 K/mm3 (150-450); RBC Distribution Width SD 44.3 fl (35.1-43.9); Red Blood Count 4.74 M/mm3 (4.2-5.4); White Blood Count 25.6 K/mm3 (4.4-11.0)
[2022-08-02 06:56] LABS: Differential Indicated SCAN CRITERIA MET
[2022-08-02 07:11] LABS: Anisocytosis 1+; Macrocytosis 2+; Platelet Estimate MOD INC (ADEQ)
[2022-08-02 07:20] LABS: Anion Gap 8 (5-15); BUN 20 mg/dL (7-18); Chloride 105 mmol/L (98-107); Creatinine, Serum 0.62 mg/dL (0.55-1.02); EST Glomerular Filtration Rate 112 mL/min (>60); Est Glom Filt Rate - Afr Amer 136 mL/min (>60); Estimated Creatinine Clearance 127.31 ml/min; Glucose 118 mg/dL (74-106); Potassium 4.6 mmol/L (3.5-5.1); Sodium Level 137 mmol/L (136-145)
--- NOTE | 2022-08-02 07:35 | PCM.PN.HOSP ---
Reason for Visit Reason for Visit: Diagnoses Malignant neoplasm of unspecified site of left female breast (07/30/22) Malignant neoplasm of unspecified site of unspecified female breast (07/30/22) Secondary and unspecified malignant neoplasm of lymph node, unspecified (07/30/22) Secondary malignant neoplasm of unspecified lung (07/30/22) Unspecified asthma, uncomplicated (07/30/22) Pleural effusion, not elsewhere classified (07/30/22) Dyspnea, unspecified (07/30/22) Hypoxemia (07/30/22) Subjective Subjective Patient seen, remains dyspneic and tachycardic at rest. WBC count remains elevated at 25.6. Patient also complains of being anxious added Xanax. Objective Data Objective Data Vital Signs: Vital Signs Temp Pulse Resp BP Pulse Ox O2 Del Method O2 Flow Rate 97.8 F 120 H 18 168/109 H 94 Nasal Cannula 2 08/02/22 06:38 08/02/22 06:38 08/02/22 06:38 08/02/22 06:38 08/02/22 06:38 08/02/22 06:38 08/02/22 06:38 FiO2 50 07/30/22 19:06 Oxygen Flow Rate (L/min) [1 ( 6 Initial Baseline)] Oxygen Flow Rate (L/min) 2 Oxygen Delivery Method [1 ( Nasal Cannula Initial Baseline)] Oxygen Delivery Method Nasal Cannula Weight: 90.7 kg Body Mass Index (BMI) 29.5 Intake & Output: Intake and Output for Last 24 Hours 07/31/22 08/01/22 08/02/22 23:59 23:59 23:59 Intake Total 2795 / 2795 1165 / 1165 530 / 530 Output Total 450 / 450 Balance 2345 / 2345 1165 / 1165 530 / 530 Lab / Micro Data Result Diagrams: 08/02/22 06:40 08/02/22 06:40 Labs: Laboratory Results - last 24 hr 08/02/22 06:40: WBC 25.6 H, RBC 4.74, Hgb 10.4 L, Hct 34.9 L, MCV 73.6 L, MCH 21.9 L, MCHC 29.8 L, RDW Std Deviation 44.3 H, RDW Coeff of Martha 17.0 H, Plt Count 575 H, MPV 9.3, Immature Gran % (Auto) 1.100 H, Neut % (Auto) 91.0 H, Lymph % (Auto) 4.1 L, [place] % (Auto) 3.6, Eos % (Auto) 0.0, Baso % (Auto) 0.2, Absolute Neuts (auto) 23.3 H, Absolute Lymphs (auto) 1.06, Nucleated RBC % 0.2, Platelet Estimate MOD INC, Anisocytosis 1+, Macrocytosis 2+ 08/02/22 06:40: Sodium 137, Potassium 4.6, Chloride 105, Carbon Dioxide 24.0, Anion Gap 8, BUN 20 H, Creatinine 0.62, Estim Creat Clear Calc 127.31, Est GFR (MDRD) Af Amer 136, Est GFR (MDRD) Non-Af 112, BUN/Creatinine Ratio 32.0 H, Glucose 118 H, Calcium 9.0 Micro: Microbiology 07/31/22 02:05 Sputum, Expectorated/Coughed Gram Stain - Final 07/31/22 02:05 Sputum, Expectorated/Coughed Respiratory Culture - Preliminary Appears to be normal respiratory sweetie. Further studies to follow. 07/30/22 23:05 Urine, Clean Catch Urine Culture - Preliminary Culture exhibits no growth. 07/30/22 20:52 Mucosa - Nasopharyngeal Respiratory Panel (PCR) - Final 07/30/22 15:48 Nasal Secretion SARS-CoV-2 & FLU Antigen (Rapid) - Final Physical Exam Narrative GENERAL: cooperative HEENT: Atraumatic; normocephalic EYES; Anicteric, Normal Conjunctiva NECK; supple, normal thyroid, RESPIRATORY: Diminished to auscultation CARDIOVASCULAR: Regular S1 S2, GI: soft, normoactive bowel sounds, : No Renal angle tenderness; EXTREMITIES: No edema, no clubbing, MUSCULOSKELETAL: no muscle wasting NEURO: Awake; no lateralizing signs. SKIN: No Rash PSYCH; Flat affect Assessment & Plan Assessment/Plan (1) Acute dyspnea: (2) Breast cancer metastasized to lung: PLAN: Plan Patient is a 41-year-old lady with history of breast CA with mets to the lungs admitted with shortness of breath diagnosed with sepsis secondary to suspected upper respiratory tract infection admitted to a monitored bed for further management 1. Sepsis (present on admission) ? Secondary to suspected upper respiratory tract infection patient managed with Levaquin ? Patient WBC count trending up added vancomycin to patient's therapy ?08/02/2022; patient remains dyspneic at rest with elevated WBC count. Vancomycin has been added to patient's therapy the day prior 2. Breast CA ? 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 Patient was found to have suspected mets to the left lung patient had apparently followed up with oncology as outpatient plan is patient to resume care. 3. Acute hypoxia ? Secondary to a combination of patient upper respiratory tract infection her lung meds as well as history of asthma placed on supplemental oxygen titrated to keep saturation greater than 90 4. Elevated troponin ? Secondary to demand ischemia from patient hypoxia 5. Tobacco dependence - Counseled on cessation, offered nicotine patch for tobacco cravings 6. Mild intermittent asthma ? Aerosol treatments as needed 7. DVT prophylaxis ? SC Lovenox 8. Left-sided pleural effusion ? Possibly malignant pleural effusion, Patient attempted thoracentesis by interventional radiology today prior was unsuccessful 9. Acute anxiety ? Patient started on Xanax 0.5 3 times daily as needed in addition to scheduled Paxil Time spent in the patient's overall evaluation,decision-making process, review of diagnostic data, adjustment of management, discussion with other providers, nursing nursing and ancillary staff involved in patient's care documentation, 40 minutes Charges/Coding Visit Charges Inpatient E&M: 63013 Subs Hosp L2
[2022-08-02] MEDS: ALPRAZolam 0.5 MG Tablet PO ×2 (11:08→23:02)
[2022-08-02] MEDS: Enoxaparin 40 MG/0.4 ML Syringe SC (11:09)
[2022-08-02] MEDS: levoFLOXacin IV 750 MG/150 ML BAG 100 MG IV (11:14)
[2022-08-02] MEDS: Paroxetine 20 MG Tablet PO (12:28)
[2022-08-02] MEDS: 0.9% Saline Lock 10 ML Syringe IV (13:36)
[2022-08-02] MEDS: Ipratropium/Albuterol Sulfate 3 ML AMPUL.NEB INHALATION (19:05)
[2022-08-02] MEDS: oxyCODONE 5 MG Tablet PO (21:16)
[2022-08-02] MEDS: Senna/Docusate Sodium 1 Tablet 2 TABLET PO (21:16)
[2022-08-03] VITALS (14 sets, daily range): BP systolic 143–169; BP diastolic 18–125; PULSE 108–124; RESP 20–30; TEMP 36.4–36.8; O2SAT 92–98; BMI 29.5
--- NOTE | 2022-08-03 | FLU_PTH ---
PATHOLOGY RESULTS PATIENT: IFTIKHAR CHENG LOC: [facility] U#:[id number] AGE/SX: 41/F ROOM: [facility] RE07/30/[address]: Dr. Wilson Encarnacion MD : 1980 BED: 1 DIS: 08/04/2022 SPEC #: [id number] RECD: 08/03/22 15:07 STATUS: SANDEEP REWei #: [id number] JACINTA: 08/03/22 00:[address]: Wilson Encarnacion DEPT: CYTOLOGY RECD BY: Jasson Garrett ENTERED: 08/04/22 08:15 SP TYPE: Fluid OTHR DR: MD Dr. Jacob Prajapati MD Dr. Mansour Isckarus, MD Dr. Paige Pierce, MD Dr. Robert Field, MD Dr. Ryan Jin, MD Dr. Roger Macklis, MD Dr. Steve Walston, DO No Primary Care Phys Claudia Wright NP-C Tissues: THORACIC FLUID Procedures: Special Stain Group II Surgery Specimen Level IV Cytospin Fluid HEADER OPERATION: Ultrasound-guided thoracentesis PRE-OP DIAGNOSIS: Left pleural effusion TISSUE SUBMITTED: Thoracentesis fluid for cytology DIAGNOSIS CYTOLOGY Thoracentesis fluid for cytology (cytospin and cell block): Negative for malignant cells. See comment. SJ:giovanni 08/08/2022 COMMENT Correlation with clinical findings and appropriate follow up are necessary. Immunohistochemistry ([id number]) supports the above diagnosis. Please make reference to previous specimen ([id number]) left breast, core biopsy with diagnosis of ?invasive ductal carcinoma.? Case has been reviewed in consultation with Dr. Bedolla who concurs with the above diagnosis. IDC:AM CYTOLOGY STUDY Slides are reviewed. CYTOLOGY GROSS Received is 90 ml of yellow cloudy fluid labeled with the patient's name and and designated per the requisition as thoracentesis. Submitted for cytology preparation including cell block. / giovanni 08/04/2022 TC:5 CPT: 60574, 96281
--- NOTE | 2022-08-03 | IMM_PTH ---
PATHOLOGY RESULTS PATIENT: IFTIKHAR CHENG [facility] U#:[id number] AGE/SX: 41/F ROOM: [facility] RE07/30/[address]: Dr. Wilson Encarnacion MD : 1980 BED: 1 DIS: 08/04/2022 SPEC #: [id number] RECD: 08/07/22 13:24 STATUS: SANDEEP REQ #: [id number] JACINTA: 08/03/22 00:[address]: Wilson Encarnacion DEPT: IMMUNOHISTOCHEMISTRY RECD BY: Lakeshia Siddiqi ENTERED: 08/07/22 13:26 SP TYPE: IMMUNO OTHR DR: MD Dr. Jacob Prajapati MD Dr. Mansour Isckarus, MD Dr. Paige Pierce, MD Dr. Robert Field, MD Dr. Ryan Jin, MD Dr. Roger Macklis, MD Dr. Steve Walston, DO No Primary Care Phys Claudia Wright NP-C Tissues: THORACIC FLUID Procedures: RCC (add) Joshua Ret (add) CK20 (add) CK5-6 (add) CK7 (add) CK8 (add) E-CAD (add) HEP PAR (add) HER2 DMITRY (add) MAMM (add) UT (add) TTF1 (add) Vimentin (add) Pankeratin (add) GATA3 (add) P40 (add) CD68 (ADD) ER (initial) PHYSICIAN & INSTITUTION [address] [address] SPECIMEN INFORMATION: Tissue Source: Thoracentesis fluid Clinical Info: Left pleural effusion Specimen Number: [id number] CPT code: 42617, 31445 x17 METHODOLOGY: Deparaffinized sections of prefer/formalin-fixed tissue or PAP/DQ stained slides are incubated with monoclonal/polyclonal antibodies/oligonucleotide probes. Localization is made via biotin free immunoperoxidase method. Appropriate controls are performed and reacted as expected. Results on target cell population are indicated in the following table: RESULTS: ANTIBODY / CLONE RESULT ER (6F11) negative UT (1E2) negative Her-2neu (CB11) negative E-Cad (ECH-6) positive, focal, weak Mammaglobin (31A5) negative GATA3 (L50-823) negative AE1-3 (AE1/AE3/PCK26) negative * CK7 (OV-TL12/30) negative * CK8 (80supjK33) negative * CK20 (KS20.8) negative Vimentin (V9) negative * CD68 (KP-1) negative TTF-1 (8G7G3/1) negative HepPar (OCh1E5) negative RCC (PN-15) negative CALRET (polyclonal) negative * CK5-6 (D5 & 1684) negative * P40 (BC28) negative *?Positive in mesothelial cells. These tests were developed and their performance characteristics determined by [facility]. They may not have been cleared or approved by the U.S. Food and Drug Administration. The FDA has determined that such clearance or approval is not necessary. The above immunohistochemical/dualISH markers are ordered and reviewed by the Pathologist. INTERPRETATION: Thoracentesis fluid (cell block): Negative for malignant cells. SJ:giovanni 08/08/2022
[2022-08-03] MEDS: cloNIDine HCl 0.1 MG Tablet 0.100000000000000006 MG PO ×3 (05:00→21:45)
[2022-08-03 05:59] LABS: Absolute Lymphocyte Count 1.31 X10^3/uL (0.83-4.51); Basophil# 0.05 X10^3/uL; Basophil% 0.2 % (0-1); Hematocrit 35.5 % (37-47); Hemoglobin 10.6 g/dL (12.0-15.0); Lymphocyte # 1.31 X10^3/ul (0.83-4.51); Lymphocyte % 6.3 % (19-41); Mean Corp Hgb Conc 29.9 g/dL (32-36); Mean Corpuscular Hgb 22.1 pg (27.0-32.0); Mean Corpuscular Volume 74.1 fL (81-99); Mean Platelet Vol. 9.3 fl (6.2-12.0); Monocyte# 0.89 X10^3/uL; Monocyte% 4.3 % (0-10); NRBC Flagged by Analyzer 0.2 % (0-5); Neutrophil % 87.2 % (47-70); Platelet Count 560 K/mm3 (150-450); RBC Distribution Width CV 16.9 % (11.6-14.6); RBC Distribution Width SD 44.4 fl (35.1-43.9); Red Blood Count 4.79 M/mm3 (4.2-5.4); White Blood Count 20.7 K/mm3 (4.4-11.0)
--- NOTE | 2022-08-03 06:23 | PCM.RX.CS ---
Consult Pharmacy has been consulted to manage selected antiobiotic: Vancomycin Type of Consult: Follow-up Microbiology: Microbiology 07/31/22 02:05 Sputum, Expectorated/Coughed Gram Stain - Final 07/31/22 02:05 Sputum, Expectorated/Coughed Respiratory Culture - Final 07/30/22 23:05 Urine, Clean Catch Urine Culture - Final Culture exhibits no growth. 07/30/22 20:52 Mucosa - Nasopharyngeal Respiratory Panel (PCR) - Final 07/30/22 15:48 Nasal Secretion SARS-CoV-2 & FLU Antigen (Rapid) - Final Goal Trough: 10-15 mcg/mL Pharmacy Plan for Drug Dosing: Pharmacy Service will continue to monitor and adjust dosing as required. TROUGH 11.7 AT 11.5 HRS. NO CHANGES, FOLLOW UP TROUGH IN 2 DAYS Follow-Up Labs: Trough Vancomycin Labs to be done on [date and time ordered]: 08/03 @ 0108
[2022-08-03 06:32] LABS: Anion Gap 7 (5-15); BUN 19 mg/dL (7-18); BUN/Creat Ratio 26.6 RATIO (10-20); Calcium,Total 8.8 mg/dL (8.5-10.1); Chloride 102 mmol/L (98-107); Creatinine, Serum 0.71 mg/dL (0.55-1.02); EST Glomerular Filtration Rate 97 mL/min (>60); Est Glom Filt Rate - Afr Amer 117 mL/min (>60); Estimated Creatinine Clearance 111.18 ml/min; Glucose 124 mg/dL (74-106); Potassium 4.6 mmol/L (3.5-5.1); Sodium Level 134 mmol/L (136-145)
[2022-08-03] MEDS: Ipratropium/Albuterol Sulfate 3 ML AMPUL.NEB INHALATION ×2 (07:11→19:31)
[2022-08-03 08:33] LABS: Vancomycin, Trough Level 11.7 ug/mL (5.0-15.0)
--- NOTE | 2022-08-03 09:12 | PN.HOSP_ITS ---
Reason for Visit Reason for Visit: Diagnoses Malignant neoplasm of unspecified site of left female breast (07/30/22) Malignant neoplasm of unspecified site of unspecified female breast (07/30/22) Secondary and unspecified malignant neoplasm of lymph node, unspecified (07/30/22) Secondary malignant neoplasm of unspecified lung (07/30/22) Unspecified asthma, uncomplicated (07/30/22) Pleural effusion, not elsewhere classified (07/30/22) Dyspnea, unspecified (07/30/22) Hypoxemia (07/30/22) Subjective Subjective Patient scheduled to undergo a second attempt at ultrasound-guided thoracocentesis by interventional radiology. Patient is threatening to sign out AGAINST MEDICAL ADVICE if her boyfriend is not allowed to stay with him tonight Objective Data Objective Data Vital Signs: Vital Signs Temp Pulse Resp BP Pulse Ox O2 Del Method O2 Flow Rate 98.0 F 110 H 28 H 162/125 H 97 Nasal Cannula 3 08/03/22 05:00 08/03/22 05:00 08/03/22 05:00 08/03/22 05:00 08/03/22 05:00 08/03/22 05:00 08/03/22 05:00 FiO2 50 07/30/22 19:06 Oxygen Flow Rate (L/min) [1 ( 6 Initial Baseline)] Oxygen Flow Rate (L/min) 3 Oxygen Delivery Method [1 ( Nasal Cannula Initial Baseline)] Oxygen Delivery Method Nasal Cannula Weight: 90.9 kg Body Mass Index (BMI) 29.5 Intake & Output: Intake and Output for Last 24 Hours 08/01/22 08/02/22 08/03/22 23:59 23:59 23:59 Intake Total 1165 / 1165 2460 / 3060 1130 / 1130 Balance 1165 / 1165 2460 / 3060 1130 / 1130 Lab / Micro Data Result Diagrams: 08/03/22 05:35 08/03/22 05:35 Labs: Laboratory Results - last 24 hr 08/03/22 00:57: Vancomycin Trough 11.7 08/03/22 05:35: WBC 20.7 H, RBC 4.79, Hgb 10.6 L, Hct 35.5 L, MCV 74.1 L, MCH 22.1 L, MCHC 29.9 L, RDW Std Deviation 44.4 H, RDW Coeff of Martha 16.9 H, Plt Count 560 H, MPV 9.3, Immature Gran % (Auto) 2.000 H, Neut % (Auto) 87.2 H, Lymph % (Auto) 6.3 L, [place] % (Auto) 4.3, Eos % (Auto) 0.0, Baso % (Auto) 0.2, Absolute Neuts (auto) 18.0 H, Absolute Lymphs (auto) 1.31, Nucleated RBC % 0.2 08/03/22 05:35: Sodium 134 L, Potassium 4.6, Chloride 102, Carbon Dioxide 25.0, Anion Gap 7, BUN 19 H, Creatinine 0.71, Estim Creat Clear Calc 111.18, Est GFR (MDRD) Af Amer 117, Est GFR (MDRD) Non-Af 97, BUN/Creatinine Ratio 26.6 H, Glucose 124 H, Calcium 8.8 Micro: Microbiology 07/31/22 02:05 Sputum, Expectorated/Coughed Gram Stain - Final 07/31/22 02:05 Sputum, Expectorated/Coughed Respiratory Culture - Final 07/30/22 23:05 Urine, Clean Catch Urine Culture - Final Culture exhibits no growth. 07/30/22 20:52 Mucosa - Nasopharyngeal Respiratory Panel (PCR) - Final 07/30/22 15:48 Nasal Secretion SARS-CoV-2 & FLU Antigen (Rapid) - Final Physical Exam Narrative GENERAL: cooperative HEENT: Atraumatic; normocephalic EYES; Anicteric, Normal Conjunctiva NECK; supple, normal thyroid, RESPIRATORY: Diminished to auscultation CARDIOVASCULAR: Regular S1 S2, GI: soft, normoactive bowel sounds, : No Renal angle tenderness; EXTREMITIES: No edema, no clubbing, MUSCULOSKELETAL: no muscle wasting NEURO: Awake; no lateralizing signs. SKIN: No Rash PSYCH; Flat affect Assessment & Plan Assessment/Plan (1) Acute dyspnea: (2) Breast cancer metastasized to lung: PLAN: Plan Patient is a 41-year-old lady with history of breast CA with mets to the lungs admitted with shortness of breath diagnosed with sepsis secondary to suspected upper respiratory tract infection admitted to a monitored bed for further management 1. Sepsis (present on admission) ? Secondary to suspected upper respiratory tract infection patient managed with Levaquin ? Patient WBC count trending up added vancomycin to patient's therapy ?08/02/2022; patient remains dyspneic at rest with elevated WBC count. Vancomycin has been added to patient's therapy the day prior 2. Breast CA ? 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 Patient was found to have suspected mets to the left lung patient had apparently followed up with oncology as outpatient plan is patient to resume care. 3. Acute hypoxia ? Secondary to a combination of patient upper respiratory tract infection her lung meds as well as history of asthma placed on supplemental oxygen titrated to keep saturation greater than 90 4. Elevated troponin ? Secondary to demand ischemia from patient hypoxia 5. Tobacco dependence - Counseled on cessation, offered nicotine patch for tobacco cravings 6. Mild intermittent asthma ? Aerosol treatments as needed 7. DVT prophylaxis ? SC Lovenox 8. Left-sided pleural effusion ? 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 08/03/2022 : Patient scheduled to undergo a second attempt at ultrasound-guided thoracocentesis by interventional radiology 9. Acute anxiety ? Patient started on Xanax 0.5 3 times daily as needed in addition to scheduled Paxil Time spent in the patient's overall evaluation,decision-making process, review of diagnostic data, adjustment of management, discussion with other providers, nursing nursing and ancillary staff involved in patient's care documentation, 40 minutes Charges/Coding Visit Charges Inpatient E&M: 94761 Subs Hosp L2
[2022-08-03] MEDS: levoFLOXacin IV 750 MG/150 ML BAG 100 MG IV (11:49)
[2022-08-03] MEDS: 0.9% Saline Lock 10 ML Syringe IV ×2 (11:51→17:25)
[2022-08-03] MEDS: Enoxaparin 40 MG/0.4 ML Syringe SC (11:53)
[2022-08-03] MEDS: Paroxetine 20 MG Tablet PO (11:53)
[2022-08-03] MEDS: guaiFENesin 1,200 MG Tablet 1200 MG PO ×2 (11:53→21:44)
[2022-08-03] MEDS: oxyCODONE 5 MG Tablet PO ×3 (12:08→21:44)
[2022-08-03] MEDS: ALPRAZolam 0.5 MG Tablet PO ×2 (13:47→21:45)
[2022-08-03] MEDS: Lidocaine 2% (20 ml mdv) 20 ML Vial INFILT (14:52)
--- NOTE | 2022-08-03 15:03 | RAD_ITS ---
STUDY: X-RAY CHEST REASON FOR EXAM: Female, 41 years old. Post thora TECHNIQUE: AP inspiration and expiration views. COMPARISON: Comparison is made with prior study dated July 30, 2022. FINDINGS: The patient is status post left thoracentesis. No evidence of pneumothorax. RAD/Chest Insp/Exp 2 View IMPRESSION: No evidence of pneumothorax on the immediate post left thoracentesis examination. Electronically Signed: Patrice Baron MD at 15:21 EDT ,
[2022-08-03 15:13] LABS: Cytology, Body Fluid / CSF SEE PATHOLOGY REPORT
--- NOTE | 2022-08-03 16:16 | US_ITS ---
PROCEDURE: ULTRASOUND GUIDED THORACENTESIS. DATE: August 03, 2022.. INDICATION: Female, 41 years old. Left pleural effusion. PHYSICIAN: Patrice Baron M.D. PROCEDURE: The risks, benefits, and alternatives to the procedure were explained to the patient. The specific risks of bleeding, infection, and pneumothorax requiring chest tube insertion were discussed and accepted. Written informed consent was obtained. Ultrasonographic evaluation of the left lower pleural space was carried out. An adequate pocket was identified. The patient was placed in the sitting, upright position. The overlying skin was prepped and draped in sterile fashion. 1% lidocaine was administered subcutaneously for local anesthesia. Under ultrasound guidance, a 5 [place] thoracentesis needle/catheter system was advanced into the left posterior lower pleural fluid collection. Approximately 900 mL of gloria-colored fluid was drained. The catheter was removed, and a sterile dressing was applied. A specimen was collected and sent to the laboratory for analysis, as requested by the referring clinician. The patient tolerated the procedure well. A chest x-ray was ordered. US/Thoracentesis W US IMPRESSION: Ultrasound-guided left thoracentesis. Electronically Signed: Patrice Baron MD at 15:24 EDT ,
[2022-08-03 17:02] LABS: Body Fluid Mononuclear WBC # 1.041 10^3/uL; Body Fluid Mononuclear WBC % 77.6 %; Body Fluid Polynuclear WBC # 0.302 10^3/uL; Body Fluid Polynuclear WBC % 22.4 %; Body Fluid Total Cells Counted 1.449 10^3/ul; Red Cell Count/Body Fluid 0.003 10^6/ul; White Blood Count/Body Fluid 1.343 10^3/uL
[2022-08-03 17:11] LABS: Appearance/Body Fluid SL CLDY; Auto B Fluid Analyzer BKGD Ct COUNTS W/IN LIMITS (W/IN LIMITS); Color/Body Fluid LT YEL; Source- Body Fluid THORACENTESIS
[2022-08-03 17:43] LABS: Lymphocytes 55 %; Macrophages 12 %; Mesothelial Cells 4 %; Monocytes 1 %; Neutrophil (Segs) 28 %
[2022-08-03 17:44] LABS: Body Fluid QC Type(s) BF2Q
[2022-08-03 17:49] LABS: Glucose, Body Fluid 121 mg/dL (40-70); LDH,Body Fluid 229 Units/l (Not Establ.); Protein, Body Fluid 2.6 g/dL (Not Establ.)
[2022-08-04] VITALS (8 sets, daily range): BP systolic 143–151; BP diastolic 102–116; PULSE 110–122; RESP 20–28; TEMP 36.6–36.8; O2SAT 88–97; BMI 29.9
[2022-08-04] MEDS: ALPRAZolam 0.5 MG Tablet PO (05:42)
--- NOTE | 2022-08-04 07:53 | PCM.PN.HOSP ---
Reason for Visit Reason for Visit: Diagnoses Malignant neoplasm of unspecified site of left female breast (07/30/22) Malignant neoplasm of unspecified site of unspecified female breast (07/30/22) Secondary and unspecified malignant neoplasm of lymph node, unspecified (07/30/22) Secondary malignant neoplasm of unspecified lung (07/30/22) Unspecified asthma, uncomplicated (07/30/22) Pleural effusion, not elsewhere classified (07/30/22) Dyspnea, unspecified (07/30/22) Hypoxemia (07/30/22) Subjective Subjective Patient seen breathing improved following paracentesis. Plan is for patient to be discharged home with home oxygen Objective Data Objective Data Vital Signs: Vital Signs Temp Pulse Resp BP Pulse Ox O2 Del Method O2 Flow Rate 98.1 F 117 H 20 H 144/110 H 97 Nasal Cannula 1 08/04/22 06:55 08/04/22 06:55 08/04/22 06:55 08/04/22 06:55 08/04/22 06:55 08/04/22 06:55 08/04/22 06:55 FiO2 50 07/30/22 19:06 Oxygen Flow Rate (L/min) [3] 3 Oxygen Flow Rate (L/min) [2] 3 Oxygen Flow Rate (L/min) [1 ( 3 Initial Baseline)] Oxygen Flow Rate (L/min) [1 ( 6 Initial Baseline)] Oxygen Flow Rate (L/min) 1 Oxygen Delivery Method [3] Nasal Cannula Oxygen Delivery Method [2] Nasal Cannula Oxygen Delivery Method [1 ( Nasal Cannula Initial Baseline)] Oxygen Delivery Method [1 ( Nasal Cannula Initial Baseline)] Oxygen Delivery Method Nasal Cannula Weight: 92 kg Body Mass Index (BMI) 29.9 Intake & Output: Intake and Output for Last 24 Hours 08/02/22 08/03/22 08/04/22 23:59 23:59 23:59 Intake Total 2460 / 3060 2410 / 2410 530 / 530 Output Total 900 / 900 Balance 2460 / 3060 1510 / 1510 530 / 530 Lab / Micro Data Result Diagrams: 08/03/22 05:35 08/03/22 05:35 Labs: Laboratory Results - last 24 hr 08/02/22 14:55: Fluid Glucose 121 H, Fluid Total Protein 2.6, Fluid LDH 229 08/03/22 00:57: Vancomycin Trough 11.7 08/03/22 14:55: Fluid Source THORACENTESIS, Fluid Color LT YEL, Fluid Appearance SL CLDY, Fluid WBC 1.343, Fluid RBC 0.003, Fluid Tot Cell Count 1.449 H, Fld Polynuclear WBCs # 0.302, Fld Polynuclear WBCs % 22.4, Fluid Mononuclear WBCs 1.041, Fld Mononuclear WBCs % 77.6, Fluid Neutrophils 28, Fluid Lymphocytes 55, Fluid Monocytes 1, Fluid Macrophages 12, Fld Mesothelial Cells 4, Fl Pathologist Comment May follow, Fluid Comment 2 SEE COMMENT Micro: Microbiology 07/30/22 23:05 Urine, Clean Catch Urine Culture - Final Culture exhibits no growth. 07/30/22 23:05 Urine, Clean Catch Legionella Antigen - Final 07/30/22 23:05 Urine, Clean Catch Streptococcus pneumoniae Antigen (M - Final 07/31/22 02:05 Sputum, Expectorated/Coughed Gram Stain - Final 07/31/22 02:05 Sputum, Expectorated/Coughed Respiratory Culture - Final 07/30/22 20:52 Mucosa - Nasopharyngeal Respiratory Panel (PCR) - Final 07/30/22 15:48 Nasal Secretion SARS-CoV-2 & FLU Antigen (Rapid) - Final Radiography Diagnostic Testing: Radiology Impression Chest X-Ray 08/03/22 15:03 IMPRESSION: No evidence of pneumothorax on the immediate post left thoracentesis examination. Electronically Signed: Patrice Baron MD at 15:21 EDT Reading Location ID and State: [facility] / [place] , Service support , Thoracentesis Ultrasound 08/03/22 16:16 IMPRESSION: Ultrasound-guided left thoracentesis. Electronically Signed: Patrice Baron MD at 15:24 EDT , Physical Exam Narrative GENERAL: cooperative HEENT: Atraumatic; normocephalic EYES; Anicteric, Normal Conjunctiva NECK; supple, normal thyroid, RESPIRATORY: Diminished to auscultation CARDIOVASCULAR: Regular S1 S2, GI: soft, normoactive bowel sounds, : No Renal angle tenderness; EXTREMITIES: No edema, no clubbing, MUSCULOSKELETAL: no muscle wasting NEURO: Awake; no lateralizing signs. SKIN: No Rash PSYCH; Flat affect Assessment & Plan Assessment/Plan (1) Acute dyspnea: (2) Breast cancer metastasized to lung: PLAN: Plan Patient is a 41-year-old lady with history of breast CA with mets to the lungs admitted with shortness of breath diagnosed with sepsis secondary to suspected upper respiratory tract infection admitted to a monitored bed for further management 1. Sepsis (present on admission) ? Secondary to suspected upper respiratory tract infection patient managed with Levaquin ? Patient WBC count trending up added vancomycin to patient's therapy ?08/02/2022; patient remains dyspneic at rest with elevated WBC count. Vancomycin has been added to patient's therapy the day prior 2. Breast CA ? 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 Patient was found to have suspected mets to the left lung patient had apparently followed up with oncology as outpatient plan is patient to resume care. 3. Acute hypoxia ? Secondary to a combination of patient upper respiratory tract infection her lung meds as well as history of asthma placed on supplemental oxygen titrated to keep saturation greater than 90 ? 08/04/2022. Patient did qualify for home oxygen she will need portability since he is active in the community as well as at home 4. Elevated troponin ? Secondary to demand ischemia from patient hypoxia 5. Tobacco dependence - Counseled on cessation, offered nicotine patch for tobacco cravings 6. Mild intermittent asthma ? Aerosol treatments as needed 7. DVT prophylaxis ? SC Lovenox 8. Left-sided pleural effusion ? 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 08/03/2022 : Patient scheduled to undergo a second attempt at ultrasound-guided thoracocentesis by interventional radiology 9. Acute anxiety ? Patient started on Xanax 0.5 3 times daily as needed in addition to scheduled Paxil Time spent in the patient's overall evaluation,decision-making process, review of diagnostic data, adjustment of management, discussion with other providers, nursing nursing and ancillary staff involved in patient's care documentation, 40 minutes Charges/Coding Visit Charges Inpatient E&M: 17679 Subs Hosp L2
--- NOTE | 2022-08-04 07:53 | NURSING ---
inadequate staffing. 5/1 ratio with one family nurse for whole floor. emergency charting in use 08/04
--- NOTE | 2022-08-04 09:57 | DS.PCM_ITS ---
Providers Date of Admission: 07/30/22 Date of Discharge: 08/04/22 Primary Care Physician: No Primary Care Phys Consultations 07/31/22 05:55 Consult: Oncology/Hematology AM (NON MEDS) Consulting Provider: *[facility] Reason for Consult: Presumed metastatic breast cancer EMERGENT Consult: No Notified: Yes Date Notified: 07/30/22 Time Notified: 18:41 Method of Notification: Text 07/31/22 11:04 Consult: Oncology/Hematology Routine Consulting Provider: *[facility] ([facility]) Reason for Consult: breast Cancer with suspected mets EMERGENT Consult: No Notified: Yes Date Notified: 07/31/22 Time Notified: 11:04 Method of Notification: Verbal Reason For Visit: SEPSIS 2/2 ?PNA Diagnosis Discharge Diagnosis (1) Acute dyspnea: Status: Acute Code(s): R06.00 - Dyspnea, unspecified (2) Breast cancer metastasized to lung: Status: Acute Code(s): C50.919 - Malignant neoplasm of unspecified site of unspecified female breast; C78.00 - Secondary malignant neoplasm of unspecified lung Plan Patient is a 41-year-old lady with history of breast CA with mets to the lungs admitted with shortness of breath diagnosed with sepsis secondary to suspected upper respiratory tract infection admitted to a monitored bed for further management 1. Sepsis (present on admission) ? Secondary to suspected upper respiratory tract infection patient managed with Levaquin ? Patient WBC count trending up added vancomycin to patient's therapy ?08/02/2022; patient remains dyspneic at rest with elevated WBC count. Vancomycin has been added to patient's therapy the day prior ? Patient discharged on Levaquin 2. Breast CA ? 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 Patient was found to have suspected mets to the left lung patient had apparently followed up with oncology as outpatient plan is patient to resume care. ? Patient to follow-up with oncology within a week 3. Acute hypoxia ? Secondary to a combination of patient upper respiratory tract infection her lung meds as well as history of asthma placed on supplemental oxygen titrated to keep saturation greater than 90 ? 08/04/2022. Patient did qualify for home oxygen she will need portability since he is active in the community as well as at home 4. Elevated troponin ? Secondary to demand ischemia from patient hypoxia 5. Tobacco dependence - Counseled on cessation, offered nicotine patch for tobacco cravings 6. Mild intermittent asthma ? Aerosol treatments as needed 7. DVT prophylaxis ? SC Lovenox 8. Left-sided pleural effusion ? 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 08/03/2022 : Patient scheduled to undergo a second attempt at ultrasound-guided thoracocentesis by interventional radiology 9. Acute anxiety ? Patient started on Xanax 0.5 3 times daily as needed in addition to scheduled Paxil Time spent in the patient's overall evaluation,decision-making process, review of diagnostic data, adjustment of management, discussion with other providers, nursing nursing and ancillary staff involved in patient's care documentation, 40 minutes Medications at Discharge Home Medications albuterol sulfate 90 mcg/actuation aerosol inhaler 1 - 2 puff inhalation Q4H PRN PRN Asthma 03/22/19 lisinopril 2.5 mg tablet 2.5 mg PO DAILY 03/22/19 alprazolam 0.5 mg tablet 0.5 mg PO TID PRN PRN Anxiety 7 days #21 tabs 08/04/22 guaifenesin 1,200 mg tablet, extended release 12 hr (Mucus Relief ER) 1,200 mg PO BID 10 days #20 tabs 08/04/22 levofloxacin 750 mg tablet 750 mg PO DAILY #5 tabs 08/04/22 paroxetine HCl 20 mg tablet 20 mg PO DAILY 30 days #30 tabs 08/04/22 prednisone 20 mg tablet 20 mg PO BID #10 tabs 08/04/22 Hospital Course Summary of Care Provided Minutes Spent on Discharge: 40 Physical Exam Narrative GENERAL: cooperative HEENT: Atraumatic; normocephalic EYES; Anicteric, Normal Conjunctiva NECK; supple, normal thyroid, RESPIRATORY: Diminished to auscultation CARDIOVASCULAR: Regular S1 S2, GI: soft, normoactive bowel sounds, : No Renal angle tenderness; EXTREMITIES: No edema, no clubbing, MUSCULOSKELETAL: no muscle wasting NEURO: Awake; no lateralizing signs. SKIN: No Rash PSYCH; Flat affect Weight / BMI Weight Weight: 92 kg Body Mass Index (BMI) 29.9 ABG / Lab / Microbiology Data Result Diagrams: 08/03/22 05:35 08/03/22 05:35 Laboratory: Laboratory Results - last 24 hr 08/02/22 14:55: Fluid Glucose 121 H, Fluid Total Protein 2.6, Fluid LDH 229 08/03/22 14:55: Fluid Source THORACENTESIS, Fluid Color LT YEL, Fluid Appearance SL CLDY, Fluid WBC 1.343, Fluid RBC 0.003, Fluid Tot Cell Count 1.449 H, Fld Polynuclear WBCs # 0.302, Fld Polynuclear WBCs % 22.4, Fluid Mononuclear WBCs 1.041, Fld Mononuclear WBCs % 77.6, Fluid Neutrophils 28, Fluid Lymphocytes 55, Fluid Monocytes 1, Fluid Macrophages 12, Fld Mesothelial Cells 4, Fl Pathologist Comment May follow, Fluid Comment 2 SEE COMMENT Microbiology: Microbiology 07/30/22 23:05 Urine, Clean Catch Urine Culture - Final Culture exhibits no growth. 07/30/22 23:05 Urine, Clean Catch Legionella Antigen - Final 07/30/22 23:05 Urine, Clean Catch Streptococcus pneumoniae Antigen (M - Final 07/31/22 02:05 Sputum, Expectorated/Coughed Gram Stain - Final 07/31/22 02:05 Sputum, Expectorated/Coughed Respiratory Culture - Final 07/30/22 20:52 Mucosa - Nasopharyngeal Respiratory Panel (PCR) - Final 07/30/22 15:48 Nasal Secretion SARS-CoV-2 & FLU Antigen (Rapid) - Final Radiography Diagnostic Testing: Radiology Impression Chest X-Ray 08/03/22 15:03 IMPRESSION: No evidence of pneumothorax on the immediate post left thoracentesis examination. Electronically Signed: Patrice Baron MD at 15:21 EDT , Thoracentesis Ultrasound 08/03/22 16:16 IMPRESSION: Ultrasound-guided left thoracentesis. Electronically Signed: Patrice Baron MD at 15:24 EDT , D/C Instructions Discharge Diet: No restrictions Discharge Activity: Return to Normal Activity Call your doctor if you observe: Fever of 101 or Higher, Shortness of breath, Fainting spells and Chest pain Meaningful Use Info Meaningful Use Diagnoses (Choose all that apply): None applicable Discharge Plan Admission Admit Date/Time: 07/30/22 18:29 Attending Provider: Wilson Encarnacion Primary Care Provider: Care Physician,No Primary Consulting Providers: Christianne Shaver ; Wilson Pereira ; Jacob Alejandro ; Thien Soni ; Prem Scherer ; Bladimir Sales ; Minor Melendez ; Ran Horton ; Claudia Wright EMPLOYMENT RECRUITER Instructions Patient Instructions: RAD RN Thoracentesis Dc Discharge Orders/Prescriptions Prescriptions: New paroxetine HCl 20 mg Tablet 20 mg PO DAILY 30 Days Qty: 30 0RF Mucus Relief ER 1,200 mg Tablet Extended Release 12hr 1,200 mg PO BID 10 Days Qty: 20 0RF alprazolam 0.5 mg Tablet 0.5 mg PO TID PRN PRN (Reason: Anxiety) 7 Days Qty: 21 0RF levofloxacin 750 mg tablet 750 mg PO DAILY Qty: 5 0RF prednisone 20 mg tablet 20 mg PO BID Qty: 10 0RF Continued albuterol sulfate 1 INHALER inhaler 1 - 2 puff inhalation Q4H PRN PRN (Reason: Asthma) lisinopril 2.5 MG tablet 2.5 mg PO DAILY Referrals / Follow Up: Thien Chen MD [Med Staff - Active Staff] - Within 1 Week Care Physician,No Primary [Primary Care Provider] - Claudia Wright EMPLOYMENT RECRUITER, EMPLOYMENT RECRUITER-[employer] [Med Staff - Adv Practice Prof] - Disposition Discharge Orders: Discharge Patient (Routine); Ordered 08/04/22 Ordered By: Dr. Wilson Encarnacion Charges/Coding Visit Charges Inpatient E&M: 57265 Disch Hosp >30min
[2022-08-04] MEDS: Enoxaparin 40 MG/0.4 ML Syringe SC (10:31)
[2022-08-04] MEDS: guaiFENesin 1,200 MG Tablet 1200 MG PO (10:31)
[2022-08-04] MEDS: levoFLOXacin IV 750 MG/150 ML BAG 100 MG IV (10:32)
[2022-08-04] MEDS: Paroxetine 20 MG Tablet PO (10:32)
[2022-08-04] MEDS: amLODIPine 10 MG Tablet PO (10:52)
[2022-08-04] MEDS: Metoprolol Tartrate 50 MG Tablet PO (10:52)
[2022-08-04] MEDS: oxyCODONE 5 MG Tablet PO (10:53)
--- NOTE | 2022-08-04 11:02 | CASEMGMT ---
CB LEVIN updated that patient qualifies for home oxygen. CB LEVIN in to discuss DME agencies, list provided and agreeable to [facility]. CB LEVIN sent referral to [facility] via [employer]. Patient states she will need ride home as daughter works till 10pm. Patient states she has no money for taxi and neither does her boyfriend. CB LEVIN will arrange for home oxygen delivery. CB LEVIN update [facility] worker to inquire about hospital van.
--- NOTE | 2022-08-04 12:49 | NURSING ---
pt pale a&ox3 mildy anxious. dyspnea with any exertion. lungs dim post. pain over lt side and back chronic. o2 at 1-2l. bp remains high. per pt not had reg in 12 yrs. instructed at dc to see new pcp within [address] dumont aware of high bp and hr and new meds ordered. cm setting up home o2. sig other in room attentive to care
[2022-08-08 09:36] LABS: Pathologist Comment/Body Fluid Reviewed
== END 2022-08-04 13:05 | disposition home or self-care (01) | DRG 113 ==
LOC: ED 18:01 → PCU 21:09
PROVIDERS: Admitting Provider Internal Medicine; Emergency Provider Emergency Medicine; Visit Provider Internal Medicine
DX: J06.9 Acute upper respiratory infection, unspecified (principal); C77.3 Secondary and unspecified malignant neoplasm of axilla and upper limb lymph nodes; C78.02 Secondary malignant neoplasm of left lung; I24.8 Other forms of acute ischemic heart disease; J90 Pleural effusion, not elsewhere classified; C50.912 Malignant neoplasm of unspecified site of left female breast; I10 Essential (primary) hypertension; J45.20 Mild intermittent asthma, uncomplicated; F17.200 Nicotine dependence, unspecified, uncomplicated; F41.9 Anxiety disorder, unspecified; E66.9 Obesity, unspecified; R09.02 Hypoxemia; Z68.29 Body mass index [BMI] 29.0-29.9, adult; Z99.81 Dependence on supplemental oxygen; Z79.899 Other long term (current) drug therapy
CPT/HCPCS: 32555; 36415; 71045; 71046; 71275; 80048; 80053; 80202; 81001; 82945; 83605; 83615; 83735; 83880; 84157; 84443; 84484; 85025; 85027; 85379; 85610; 87040; 87070; 87086; 87205; 87428; 87449; 87633; 87641; 88108; 88305; 88313; 88341; 88342; 89050; 93005; 93306; 94640; 94668; 94762; 99252; 99284; 99406; J7030; J7040; J7050; Q9967; A4216; G0463

== ENCOUNTER 2022-08-27 19:17 | Inpatient (IN) | payer MEDICAID, SELFPAY ==
[2022-08-27] VITALS (18 sets, daily range): BP systolic 115–154; BP diastolic 74–114; PULSE 74–130; RESP 14–44; TEMP 35.9–37.3; O2SAT 71–96; BMI 26.4; BMI 26.1
--- NOTE | 2022-08-27 19:32 | EX.ED.DYSGE1 ---
HPI <MK Grajeda - Last Filed: 08/27/22 22:05> History of Present Illness Chief Complaint: Shortness of Breath Narrative Narrative: Patient is a 41-year-old female with history of breast cancer, lung cancer with metastasis acid reflux, history of drug abuse, smoking, who presents to the emergency department in respiratory distress. Patient states that she is on oxygen daily, she is usually on 1 to 2 L. However she was putting herself on 5 L. When the EMS got there secondary to the shortness of breath she was 50%. Patient arrives here and on a nonrebreather she is 70%. She is tachypneic, is pale appearing, ill-appearing. Patient is tachycardic and has conversational dyspnea. She denies any recent fever or chills. Patient does state to have a cough. She was recently admitted with a similar event on July 30, 2022, she did have a thoracentesis at this time with a left-sided pleural effusion. She is currently not under any chemotherapy right now. [facility] <MK Grajeda - Last Filed: 08/27/22 22:05> [facility] Medical History Acid reflux Asthma Back problem Breast cancer, left Gout HTN (hypertension) Metastasis to lung Pleural effusion Regional lymph node metastasis present Request for sterilization Home Medications albuterol sulfate 90 mcg/actuation aerosol inhaler 1 - 2 puff inhalation Q4H PRN PRN Asthma 03/22/19 [History Last Taken Unknown] lisinopril 2.5 mg tablet 2.5 mg PO DAILY 03/22/19 [History Last Taken Unknown] albuterol sulfate 90 mcg/actuation aerosol inhaler (Proventil HFA) 2 puff inhalation Q6H PRN shortness of breath or wheezing #8.5 grams 08/04/22 [Rx Last Taken Unknown] alprazolam 0.5 mg tablet 0.5 mg PO TID PRN PRN Anxiety 7 days #21 tabs 08/04/22 [Rx Last Taken Unknown] amlodipine 10 mg tablet 10 mg PO DAILY #30 tabs 08/04/22 [Rx Last Taken Unknown] guaifenesin 1,200 mg tablet, extended release 12 hr (Mucus Relief ER) 1,200 mg PO BID 10 days #20 tabs 08/04/22 [Rx Last Taken Unknown] levofloxacin 750 mg tablet 750 mg PO DAILY #5 tabs 08/04/22 [Rx Last Taken Unknown] metoprolol tartrate 50 mg tablet 50 mg PO BID #60 tabs 08/04/22 [Rx Last Taken Unknown] paroxetine HCl 20 mg tablet 20 mg PO DAILY 30 days #30 tabs 08/04/22 [Rx Last Taken Unknown] prednisone 20 mg tablet 20 mg PO BID #10 tabs 08/04/22 [Rx Last Taken Unknown] dexamethasone 4 mg tablet 4 mg PO DAILY #20 tabs 08/07/22 [Rx Last Taken Unknown] Allergy/AdvReac Type Severity Reaction Status Date / Time Penicillins Allergy Rash Verified 08/07/22 11:22 aspirin AdvReac Abd Verified 08/07/22 11:22 cramps/diarrhea hydrocodone bitartrate AdvReac Abd Verified 08/07/22 11:22 [From Vicodin] cramps/diarrhea Family History Aunt Breast cancer Mother Diabetes Uncle Cancer skin cancer Father CVA (cerebral vascular accident) Daughter Thyroid disorder Surgical History S/P tubal ligation Social History Smoking Status: Current some day smoker tobacco type: cigarettes alcohol intake: never ROS <MK Grajeda - Last Filed: 08/27/22 22:05> [facility] ED ROS Narrative Constitutional: Negative for fever, chills, weight loss, weakness Eyes: Negative for vision loss, vision change, double vision ENT: Negative for any sore throat, ear pain, congestion Cardiovascular: Negative for any chest pain, tightness, palpitations Respiratory: Negative for any sputum production, hemoptysis.positive for cough, dyspnea, dyspnea on exertion, orthopnea Gastrointestinal: Negative for any abdominal pain, nausea, vomiting, diarrhea, constipation, blood in stool, blood in vomit : Negative for any urinary frequency, dysuria, retention, blood in urine Muscle skeletal: Negative for any muscle joint pain, stiffness, myalgias, arthralgias, neck pain, back pain Neurological: Negative for any headache, syncope, numbness or tingling, dizziness Skin: Negative for any rashes, lumps, itching, abrasions, lacerations Psychiatric: Negative for any depression, anxiety, stress, suicidal ideation, homicidal ideation Hematologic: Negative for any easy bruising, excessive bruising, easy bleeding Allergies: Negative for any eczema, hives, rash EXAM <MK Grajeda - Last Filed: 08/27/22 22:05> Physical Exam Narrative Exam Narrative: Vital signs reviewed. Patient on nonrebreather was tachypneic, 72% oxygen saturation. Upon initial evaluation, I did order BiPAP. Patient will receive a sepsis order set. Patient is pale appearing and ill appearing. HEET: Head normocephalic atraumatic, TMs clear bilaterally. Posterior pharynx is clear, moist mucous membranes. Nares clear bilaterally. Neck: Supple with no lymphadenopathy or tenderness. No signs of meningismus, negative jolt sign. Cardiac: Tachycardic rate, no murmurs gallops or rubs, equal peripheral pulses bilaterally. Respiratory: Patient has diminished lung sounds of the left, patient has crackles, expiratory wheezes.. No chest tenderness. Abdomen: Soft, nontender, nondistended. No abdominal bruit or pulsatile masses. No hepatosplenomegaly Extremities: No peripheral edema, no signs of gross trauma or deformity. Active full range of motion of all extremities. Neuro: Cranial nerves II through XII intact, no focal neurological deficits. Skin: Clean dry and intact with no rash, purpura, petechiae, vesicles or pustules. Backs/flank: No CVA tenderness, no midline spinal tenderness, no deformity. Psych: Normal mood and affect. No SI, HI or acute psychosis. Const Vital Signs: 08/27/22 19:18 08/27/22 19:21 08/27/22 19:17 Temperature 96.8 F L Temperature Source Temporal Pulse Rate 107 H Respiratory Rate 32 H Respiratory Effort Short of Breath Labored Respiratory Depth Shallow Respiratory Pattern Irregular Blood Pressure 154/114 H Blood Pressure Mean 127 Pulse Ox 73 Oxygen Delivery Method Non-Rebreather Non-Rebreather Oxygen Flow Rate (L/min) 15 15 Fraction of Inspired Oxygen (FIO2) 08/27/22 19:28 08/27/22 19:41 08/27/22 19:44 Temperature 96.8 F L Temperature Source Temporal Pulse Rate 98 105 H Respiratory Rate 38 H 28 H Respiratory Effort Respiratory Depth Respiratory Pattern Blood Pressure 128/108 H 148/106 H Blood Pressure Mean 114 120 Pulse Ox 86 96 Oxygen Delivery Method Bi-pap Bi-pap Bi-pap Oxygen Flow Rate (L/min) Fraction of Inspired Oxygen (FIO2) 08/27/22 21:12 08/27/22 19:46 08/27/22 19:30 Temperature 97.6 F L Temperature Source Temporal Pulse Rate 114 H 115 H 115 H Respiratory Rate 35 H 42 H 42 H Respiratory Effort Respiratory Depth Respiratory Pattern Blood Pressure 126/96 H Blood Pressure Mean 106 Pulse Ox 91 96 Oxygen Delivery Method Bi-pap Oxygen Flow Rate (L/min) Fraction of Inspired Oxygen (FIO2) 100 08/27/22 20:33 08/27/22 21:14 Temperature Temperature Source Pulse Rate 115 H 113 H Respiratory Rate 33 H 29 H Respiratory Effort Respiratory Depth Respiratory Pattern Blood Pressure 123/87 H Blood Pressure Mean 99 Pulse Ox 96 93 Oxygen Delivery Method Bi-pap Oxygen Flow Rate (L/min) Fraction of Inspired Oxygen (FIO2) 100 <Dr. Joaquin Santana MD - Last Filed: 08/27/22 22:59> Physical Exam Const Vital Signs: 08/27/22 19:18 08/27/22 19:21 08/27/22 19:17 Temperature 96.8 F L Temperature Source Temporal Pulse Rate 107 H Respiratory Rate 32 H Respiratory Effort Short of Breath Labored Respiratory Depth Shallow Respiratory Pattern Irregular Blood Pressure 154/114 H Blood Pressure Mean 127 Pulse Ox 73 Oxygen Delivery Method Non-Rebreather Non-Rebreather Oxygen Flow Rate (L/min) 15 15 Fraction of Inspired Oxygen (FIO2) 08/27/22 19:28 08/27/22 19:41 08/27/22 19:44 Temperature 96.8 F L Temperature Source Temporal Pulse Rate 98 105 H Respiratory Rate 38 H 28 H Respiratory Effort Respiratory Depth Respiratory Pattern Blood Pressure 128/108 H 148/106 H Blood Pressure Mean 114 120 Pulse Ox 86 96 Oxygen Delivery Method Bi-pap Bi-pap Bi-pap Oxygen Flow Rate (L/min) Fraction of Inspired Oxygen (FIO2) 08/27/22 21:12 08/27/22 19:46 08/27/22 19:30 Temperature 97.6 F L Temperature Source Temporal Pulse Rate 114 H 115 H 115 H Respiratory Rate 35 H 42 H 42 H Respiratory Effort Respiratory Depth Respiratory Pattern Blood Pressure 126/96 H Blood Pressure Mean 106 Pulse Ox 91 96 Oxygen Delivery Method Bi-pap Oxygen Flow Rate (L/min) Fraction of Inspired Oxygen (FIO2) 100 08/27/22 20:33 08/27/22 21:14 Temperature Temperature Source Pulse Rate 115 H 113 H Respiratory Rate 33 H 29 H Respiratory Effort Respiratory Depth Respiratory Pattern Blood Pressure 123/87 H Blood Pressure Mean 99 Pulse Ox 96 93 Oxygen Delivery Method Bi-pap Oxygen Flow Rate (L/min) Fraction of Inspired Oxygen (FIO2) 100 <Dr. Joaquin Santana MD - Last Filed: 08/27/22 22:59> Sepsis Alert: Yes Sepsis Attestation: Agree w/Sepsis Date exam was performed: 08/27/22 Time exam was performed: 22:00 Possible Source of Sepsis: Pulmonary Sepsis Organ Dysfunction Criteria Present: Acute Respiratory Failure (New need for BiPAP/CPAP or MV), Lactic Acid > 2 mmol/L and PaO2/FiO2 ratio < 300 Fluid Resuscitation Fluid Resuscitation ordered: Fluids not indicated (due to normotensive and elevated BNP, suggesting poss component of cardiogenic pulm edema) MDM <MK Grajeda - Last Filed: 08/27/22 22:05> [facility] Lab Data Labs: Laboratory Results - last 24 hr 08/27/22 08/27/22 08/27/22 19:30 19:30 19:30 WBC Cancelled Corrected WBC Cancelled RBC Cancelled Hgb Cancelled Hct Cancelled MCV Cancelled MCH Cancelled MCHC Cancelled RDW Std Deviation Cancelled RDW Coeff of Martha Cancelled Plt Count Cancelled MPV Cancelled Immature Gran % (Auto) Cancelled Neut % (Auto) Cancelled Lymph % (Auto) Cancelled [place] % (Auto) Cancelled Eos % (Auto) Cancelled Baso % (Auto) Cancelled Absolute Neuts (auto) Cancelled Absolute Lymphs (auto) Cancelled Total Counted Cancelled Neutrophils % (Manual) Cancelled Band Neutrophils % Cancelled Lymphocytes % (Manual) Cancelled Monocytes % (Manual) Cancelled Eosinophils % (Manual) Cancelled Basophils % (Manual) Cancelled Metamyelocytes % Cancelled Myelocytes % Cancelled Promyelocytes % Cancelled Blast Cells % Cancelled Plasma Cell % (Manual) Cancelled Other Cells % Cancelled Nucleated RBC % Cancelled Nucleated RBCs/100 WBC Cancelled Differential Comment Cancelled Diff Path Review Cancelled Hypersegmented Neuts Cancelled Atypical Lymphocytes Cancelled Reactive Lymphocytes Cancelled Smudge Cells Cancelled Toxic Granulation Cancelled Toxic Vacuolation Cancelled Dohle Bodies Cancelled Татьяна Rods Cancelled Platelet Estimate Cancelled Plt Morphology Comment Cancelled RBC Morphology Cancelled Polychromasia Cancelled Hypochromasia Cancelled Poikilocytosis Cancelled Basophilic Stippling Cancelled Anisocytosis Cancelled Microcytosis Cancelled Macrocytosis Cancelled Spherocytes Cancelled Sickle Cells Cancelled Target Cells Cancelled Tear Drop Cells Cancelled Ovalocytes Cancelled Stomatocytes Cancelled [place] Bodies Cancelled Butte Cells Cancelled Bite Cells Cancelled Crenated Cell Cancelled Acanthocytes (Spur) Cancelled Rouleaux Cancelled Schistocytes Cancelled Sodium 134 L Potassium 4.0 Chloride 104 Carbon Dioxide 21.0 Anion Gap 9 BUN 26 H Creatinine 0.76 Estim Creat Clear Calc 103.86 Est GFR (MDRD) Af Amer 109 Est GFR (MDRD) Non-Af 90 BUN/Creatinine Ratio 34.3 H Glucose 165 H Lactic Acid 4.1 H* Calcium 9.2 B-Natriuretic Peptide 08/27/22 08/27/22 20:02 20:02 WBC 19.5 H Corrected WBC RBC 5.21 Hgb 11.0 L Hct 37.4 MCV 71.8 L MCH 21.1 L MCHC 29.4 L RDW Std Deviation 46.6 H RDW Coeff of Martha 19.1 H Plt Count 662 H MPV 9.3 Immature Gran % (Auto) 2.600 H Neut % (Auto) 84.0 H Lymph % (Auto) 6.4 L [place] % (Auto) 6.4 Eos % (Auto) 0.1 Baso % (Auto) 0.5 Absolute Neuts (auto) 16.4 H Absolute Lymphs (auto) 1.25 Total Counted Neutrophils % (Manual) Band Neutrophils % Lymphocytes % (Manual) Monocytes % (Manual) Eosinophils % (Manual) Basophils % (Manual) Metamyelocytes % Myelocytes % Promyelocytes % Blast Cells % Plasma Cell % (Manual) Other Cells % Nucleated RBC % 0 Nucleated RBCs/100 WBC Differential Comment Diff Path Review Hypersegmented Neuts Atypical Lymphocytes Reactive Lymphocytes Smudge Cells Toxic Granulation Toxic Vacuolation Dohle Bodies Татьяна Rods Platelet Estimate Plt Morphology Comment RBC Morphology Polychromasia Hypochromasia Poikilocytosis Basophilic Stippling Anisocytosis Microcytosis Macrocytosis Spherocytes Sickle Cells Target Cells Tear Drop Cells Ovalocytes Stomatocytes [place] Bodies [place] Cells Bite Cells Crenated Cell Acanthocytes (Spur) Rouleaux Schistocytes Sodium Potassium Chloride Carbon Dioxide Anion Gap BUN Creatinine Estim Creat Clear Calc Est GFR (MDRD) Af Amer Est GFR (MDRD) Non-Af BUN/Creatinine Ratio Glucose Lactic Acid Calcium B-Natriuretic Peptide 543.6 H ABG Data ABG results: ABG 08/27/22 19:48 Specimen Type ART Sample Site R Radial pH 7.33 L Bicarbonate Actual 24.2 Total CO2 26 Base Excess -2 O2 Saturation 93 L O2 % 100 ABG pCO2 45.7 H ABG pO2 73 L Des Test Positive O2 Delivery Device BiPAP Clinical Comments 14. 8. 100% Radiography Diagnostic Testing: Clinical Impression(s) from Imaging Studies Chest X-Ray 08/27/22 19:43 IMPRESSION: Pulmonary findings appear worse. Electronically Signed: Pranav Castaneda MD at 19:59 EDT Reading Location ID and State: [facility] / [place] , Service support , EKG Sinus tachycardia: Attestation: I personally reviewed and interpreted this EKG as follows: Comments: Sinus tachycardia, rate 117 bpm, RI 114 ms, QRS duration [address] elevation, no acute infarct noted. Differential Diagnosis Chest pain/SOB: pulmonary embolism, pneumothorax, pneumonia and COPD Treatment and Re-Evaluation :: Patient arrives in moderate to severe respiratory distress. Patient was hypoxic with her oxygen at 50% on squad arrival. Patient here was placed on a nonrebreather at 15 L, she was then 75% however she was still tachypneic, patient was then placed on BiPAP. Patient will receive a septic work-up. ABG will be completed. Patient will receive a chest x-ray. Last time the patient was here on July 30, 2022, she did have a similar presentation. She did have a pleural effusion on left side and had 900 cc removed. I am concerned that this is happening again. Patient did have diminished lung sounds in the left lower lobe. This could be another pleural effusion. Patient is responding well to BiPAP, she is around 93%. Heart rate is now 115, blood pressure 123/87. Patient's chest x-ray shows that her pulmonary findings appear worse from previous. Patient does show to have bilateral effusion worse on the left. Patient's laboratory values show a leukocytosis with a white blood count 19.5, patient's chemistries show a lactic acidosis of 4.1, BNP was elevated 543. Patient did receive sepsis work-up with 2 sets of blood cultures. Patient was started on vancomycin and cefepime. This is to cover hospital-acquired pneumonia. Patient on BiPAP is doing well however she continues to want to take the mask off, will continue to tell the patient that she does take it off she may have to be intubated. Patient is improving. At this time, differential includes pulmonary embolus however this is low on the list secondary to history of pulmonary fusion, and showing signs and symptoms of pleural effusion. There is no evidence suspect any COVID-19 or influenza. We did consider a CT scan of the chest however at this time there is no evidence suspect any pulmonary embolus, patient has history of pulmonary effusion on the left, and is showing on the chest x-ray. I spoke with hospitalist, patient will go to ICU. <Dr. Joaquin Santana MD - Last Filed: 08/27/22 22:59> [facility] History & Record Review Discussion w/independent historian: Patient and Family Lab Data Attestation: I reviewed the patient's lab results. Labs: Laboratory Results - last 24 hr 08/27/22 08/27/22 08/27/22 19:30 19:30 19:30 WBC Cancelled Corrected WBC Cancelled RBC Cancelled Hgb Cancelled Hct Cancelled MCV Cancelled MCH Cancelled MCHC Cancelled RDW Std Deviation Cancelled RDW Coeff of Martha Cancelled Plt Count Cancelled MPV Cancelled Immature Gran % (Auto) Cancelled Neut % (Auto) Cancelled Lymph % (Auto) Cancelled [place] % (Auto) Cancelled Eos % (Auto) Cancelled Baso % (Auto) Cancelled Absolute Neuts (auto) Cancelled Absolute Lymphs (auto) Cancelled Total Counted Cancelled Neutrophils % (Manual) Cancelled Band Neutrophils % Cancelled Lymphocytes % (Manual) Cancelled Monocytes % (Manual) Cancelled Eosinophils % (Manual) Cancelled Basophils % (Manual) Cancelled Metamyelocytes % Cancelled Myelocytes % Cancelled Promyelocytes % Cancelled Blast Cells % Cancelled Plasma Cell % (Manual) Cancelled Other Cells % Cancelled Nucleated RBC % Cancelled Nucleated RBCs/100 WBC Cancelled Differential Comment Cancelled Diff Path Review Cancelled Hypersegmented Neuts Cancelled Atypical Lymphocytes Cancelled Reactive Lymphocytes Cancelled Smudge Cells Cancelled Toxic Granulation Cancelled Toxic Vacuolation Cancelled Dohle Bodies Cancelled Татьяна Rods Cancelled Platelet Estimate Cancelled Plt Morphology Comment Cancelled RBC Morphology Cancelled Polychromasia Cancelled Hypochromasia Cancelled Poikilocytosis Cancelled Basophilic Stippling Cancelled Anisocytosis Cancelled Microcytosis Cancelled Macrocytosis Cancelled Spherocytes Cancelled Sickle Cells Cancelled Target Cells Cancelled Tear Drop Cells Cancelled Ovalocytes Cancelled Stomatocytes Cancelled [place] Bodies Cancelled [place] Cells Cancelled Bite Cells Cancelled Crenated Cell Cancelled Acanthocytes (Spur) Cancelled Rouleaux Cancelled Schistocytes Cancelled Sodium 134 L Potassium 4.0 Chloride 104 Carbon Dioxide 21.0 Anion Gap 9 BUN 26 H Creatinine 0.76 Estim Creat Clear Calc 103.86 Est GFR (MDRD) Af Amer 109 Est GFR (MDRD) Non-Af 90 BUN/Creatinine Ratio 34.3 H Glucose 165 H Lactic Acid 4.1 H* Calcium 9.2 B-Natriuretic Peptide 08/27/22 08/27/22 20:02 20:02 WBC 19.5 H Corrected WBC RBC 5.21 Hgb 11.0 L Hct 37.4 MCV 71.8 L MCH 21.1 L MCHC 29.4 L RDW Std Deviation 46.6 H RDW Coeff of Martha 19.1 H Plt Count 662 H MPV 9.3 Immature Gran % (Auto) 2.600 H Neut % (Auto) 84.0 H Lymph % (Auto) 6.4 L [place] % (Auto) 6.4 Eos % (Auto) 0.1 Baso % (Auto) 0.5 Absolute Neuts (auto) 16.4 H Absolute Lymphs (auto) 1.25 Total Counted Neutrophils % (Manual) Band Neutrophils % Lymphocytes % (Manual) Monocytes % (Manual) Eosinophils % (Manual) Basophils % (Manual) Metamyelocytes % Myelocytes % Promyelocytes % Blast Cells % Plasma Cell % (Manual) Other Cells % Nucleated RBC % 0 Nucleated RBCs/100 WBC Differential Comment Diff Path Review Hypersegmented Neuts Atypical Lymphocytes Reactive Lymphocytes Smudge Cells Toxic Granulation Toxic Vacuolation Dohle Bodies Татьяна Rods Platelet Estimate Plt Morphology Comment RBC Morphology Polychromasia Hypochromasia Poikilocytosis Basophilic Stippling Anisocytosis Microcytosis Macrocytosis Spherocytes Sickle Cells Target Cells Tear Drop Cells Ovalocytes Stomatocytes [place] Bodies [place] Cells Bite Cells Crenated Cell Acanthocytes (Spur) Rouleaux Schistocytes Sodium Potassium Chloride Carbon Dioxide Anion Gap BUN Creatinine Estim Creat Clear Calc Est GFR (MDRD) Af Amer Est GFR (MDRD) Non-Af BUN/Creatinine Ratio Glucose Lactic Acid Calcium B-Natriuretic Peptide 543.6 H ABG Data ABG results: ABG 08/27/22 19:48 Specimen Type ART Sample Site R Radial pH 7.33 L Bicarbonate Actual 24.2 Total CO2 26 Base Excess -2 O2 Saturation 93 L O2 % 100 ABG pCO2 45.7 H ABG pO2 73 L Des Test Positive O2 Delivery Device BiPAP Clinical Comments 14. 8. 100% Radiography Chest X-Ray - ED: 1 View, Read by ED Physician, Right Infiltrate, Left Infiltrate, Left Effusion and - (ARDS pattern) Diagnostic Testing: Clinical Impression(s) from Imaging Studies Chest X-Ray 08/27/22 19:43 IMPRESSION: Pulmonary findings appear worse. Electronically Signed: Pranav Castaneda MD at 19:59 EDT Reading Location ID and State: [facility] / [place] , Service support , EKG Sinus tachycardia: Attestation: I personally reviewed and interpreted this EKG as follows: Management Discussion w/another healthcare provider: Hospitalist Treatment and Re-Evaluation Comments:: Seen and evaluated independently and in conjunction with nurse practitioner. Agree with notes above unless documented otherwise. Acute respiratory distress, quickly progressive over about 48 hours. History of metastatic breast cancer, recent left thoracentesis couple weeks ago. States she had fevers 1 to 2 days ago in the 101 range. On exam, acute respiratory distress, Rales bilaterally, diminished on the left, trachea midline. No peripheral edema. Keenly alert and a little anxious. Heart regular and tachycardic. Patient placed on BiPAP immediately and given aerosols. Still struggling in respiratory distress. I recommended intubation, the patient adamantly refuses at this time. I advised her that I would prefer to sedate her, let her rest, and place her on the ventilator sooner than later since currently on NRB she is not hypoxic but it would be more dangerous/risky later if she has significant hypoxemia and/or apnea. She understands this and is refusing at this time and I believe she has the capacity to make this decision, her significant other is at her side as we have this discussion he is involved. Patient was observed maintaining on BiPAP throughout her stay, and did not require emergent intubation. At 1 point she needed to have a conversation with us that we took her off of BiPAP for about 60 seconds and she desatted down to 75% on room air. <Dr. Joaquin Santana MD - Last Filed: 08/27/22 22:59> Critical Care Time Critical Care Time: Yes Critical care time (excluding procedures): 30-74 minutes (35 min), Including time spent:, Discussing w/Patient &/or Family/Hvac Technician, Discussing w/Consultants, Arranging Admission or Transfer and Performing Direct Patient Care at Bedside Discharge Plan Dx/Rx/DC Orders Clinical Impression: Acute respiratory failure with hypoxia and hypercapnia, Breast cancer metastasized to lung, Pleural effusion, left, HCAP (healthcare-associated pneumonia) Disposition Disposition: Acute Care Hospital [facility] Discharge Date/Time: 08/27/22 22:57
[2022-08-27] MEDS: Albuterol 2.5 MG/3 ML VIAL.NEB. INHALATION (19:38)
[2022-08-27] MEDS: Ipratropium/Albuterol Sulfate 3 ML AMPUL.NEB INHALATION (19:38)
--- NOTE | 2022-08-27 19:43 | RAD_ITS ---
STUDY: X-RAY CHEST REASON FOR EXAM: Female, 41 years old. CHEST PAIN shortness of breath TECHNIQUE: XR Chest 1 View COMPARISON: 4.6.23 FINDINGS: There is no demonstrated pleural abnormality. There is bilateral infiltrate. There is borderline cardiomegaly. Normal mediastinum and yuridia. Normal visualized pulmonary arteries. Normal visualized aortic arch and descending thoracic aorta. Normal visualized thoracic spine. Normal visualized ribs, clavicles, and shoulders. There is no demonstrated abnormality of the visualized soft tissue structures of the upper abdomen. RAD/Chest 1 View (Portable) IMPRESSION: Pulmonary findings appear worse. Electronically Signed: Pranav Castaneda MD at 19:59 EDT ,
[2022-08-27 19:53] LABS: Anion Gap 9 (5-15); BUN 26 mg/dL (7-18); BUN/Creat Ratio 34.3 RATIO (10-20); Calcium,Total 9.2 mg/dL (8.5-10.1); Chloride 104 mmol/L (98-107); Creatinine, Serum 0.76 mg/dL (0.55-1.02); EST Glomerular Filtration Rate 90 mL/min (>60); Est Glom Filt Rate - Afr Amer 109 mL/min (>60); Estimated Creatinine Clearance 103.86 ml/min; Glucose 165 mg/dL (74-106); Sodium Level 134 mmol/L (136-145)
[2022-08-27 20:08] LABS: Lactic Acid 4.1 mmol/L (0.4-1.9)
[2022-08-27 20:10] LABS: Absolute Lymphocyte Count 1.25 X10^3/uL (0.83-4.51); Absolute Neutrophil Count 16.4 X10^3/uL (2.0-7.7); Basophil% 0.5 % (0-1); Eosinophil# 0.01 X10^3/uL; Eosinophils% 0.1 % (0-5); Hematocrit 37.4 % (37-47); Lymphocyte # 1.25 X10^3/ul (0.83-4.51); Lymphocyte % 6.4 % (19-41); Mean Corp Hgb Conc 29.4 g/dL (32-36); Mean Corpuscular Hgb 21.1 pg (27.0-32.0); Mean Corpuscular Volume 71.8 fL (81-99); Mean Platelet Vol. 9.3 fl (6.2-12.0); Monocyte# 1.24 X10^3/uL; Monocyte% 6.4 % (0-10); NRBC Flagged by Analyzer 0 % (0-5); Platelet Count 662 K/mm3 (150-450); RBC Distribution Width CV 19.1 % (11.6-14.6); RBC Distribution Width SD 46.6 fl (35.1-43.9); Red Blood Count 5.21 M/mm3 (4.2-5.4); White Blood Count 19.5 K/mm3 (4.4-11.0)
[2022-08-27 20:26] LABS: Allen Test Positive; Base Excess -2 mmol/L (-2 to +2); Bicarbonate 24.2 mmol/L (22-26); Blood Gas Specimen Type ART; FI02 100; O2 Delivery Device BiPAP; PO2 73 mmHG (75-100); SITE R Radial; SO2 93 % (95-99); Total Carbon Dioxide 26 mmol/L; pCO2 45.7 mmHg (35-45); pH 7.33 (7.35-7.45)
[2022-08-27 20:29] LABS: BNP,B-Type NATRIURETIC PEPTIDE 543.6 pg/mL (0-100)
--- NOTE | 2022-08-27 21:42 | HP.PCM.HOS_ITS ---
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 At baseline patient uses 1 to 5 L nasal cannula oxygen. On her 5 L nasal oxygen per patient boyfriend was not at bedside patient oxygen saturation was 55%. And by review of paramedics note patient's oxygen saturation was 50%. Patient was placed on a nonrebreather mask by paramedics and brought to emergency department. At the emergency department patient was placed on BiPAP. Patient reports a temperature of 100.7 Fahrenheit 2 days before presentation which abated. She reports chills and rigors. She reports fatigue. She reports occasional wheezing. She reports a productive cough of green sputum. FOR[facility]LY [facility] Medical History Acid reflux Asthma Back problem Breast cancer, left Gout HTN (hypertension) Metastasis to lung Pleural effusion Regional lymph node metastasis present Request for sterilization Medical History no medical history no medical history Home Medications albuterol sulfate 90 mcg/actuation aerosol inhaler 1 - 2 puff inhalation Q4H PRN PRN Asthma 03/22/19 [History Last Taken Unknown] lisinopril 2.5 mg tablet 2.5 mg PO DAILY 03/22/19 [History Last Taken Unknown] albuterol sulfate 90 mcg/actuation aerosol inhaler (Proventil HFA) 2 puff inhalation Q6H PRN shortness of breath or wheezing #8.5 grams 08/04/22 [Rx Last Taken Unknown] alprazolam 0.5 mg tablet 0.5 mg PO TID PRN PRN Anxiety 7 days #21 tabs 08/04/22 [Rx Last Taken Unknown] amlodipine 10 mg tablet 10 mg PO DAILY #30 tabs 08/04/22 [Rx Last Taken Unknown] guaifenesin 1,200 mg tablet, extended release 12 hr (Mucus Relief ER) 1,200 mg PO BID 10 days #20 tabs 08/04/22 [Rx Last Taken Unknown] levofloxacin 750 mg tablet 750 mg PO DAILY #5 tabs 08/04/22 [Rx Last Taken Unknown] metoprolol tartrate 50 mg tablet 50 mg PO BID #60 tabs 08/04/22 [Rx Last Taken Unknown] paroxetine HCl 20 mg tablet 20 mg PO DAILY 30 days #30 tabs 08/04/22 [Rx Last Taken Unknown] prednisone 20 mg tablet 20 mg PO BID #10 tabs 08/04/22 [Rx Last Taken Unknown] dexamethasone 4 mg tablet 4 mg PO DAILY #20 tabs 08/07/22 [Rx Last Taken Unknown] Allergy/AdvReac Type Severity Reaction Status Date / Time Penicillins Allergy Rash Verified 08/07/22 11:22 aspirin AdvReac Abd Verified 08/07/22 11:22 cramps/diarrhea hydrocodone bitartrate AdvReac Abd Verified 08/07/22 11:22 [From Vicodin] cramps/diarrhea Family History Aunt Breast cancer Mother Diabetes Uncle Cancer skin cancer Father CVA (cerebral vascular accident) Daughter Thyroid disorder Surgical History S/P tubal ligation Social History Smoking Status: Current some day smoker tobacco type: cigarettes alcohol intake: never ROS ROS Narrative Pertinent positives and pertinent negatives as noted in HPI. All other systems were reviewed and are negative Vital Signs Vital Signs Vital Signs: 08/27/22 19:18 08/27/22 19:21 08/27/22 19:17 Temperature 96.8 F L Temperature Source Temporal Pulse Rate 107 H Respiratory Rate 32 H Respiratory Effort Short of Breath Labored Respiratory Depth Shallow Respiratory Pattern Irregular Blood Pressure 154/114 H Blood Pressure Mean 127 Pulse Ox 73 Oxygen Delivery Method Non-Rebreather Non-Rebreather Oxygen Flow Rate (L/min) 15 15 Fraction of Inspired Oxygen (FIO2) 08/27/22 19:28 08/27/22 19:41 08/27/22 19:44 Temperature 96.8 F L Temperature Source Temporal Pulse Rate 98 105 H Respiratory Rate 38 H 28 H Respiratory Effort Respiratory Depth Respiratory Pattern Blood Pressure 128/108 H 148/106 H Blood Pressure Mean 114 120 Pulse Ox 86 96 Oxygen Delivery Method Bi-pap Bi-pap Bi-pap Oxygen Flow Rate (L/min) Fraction of Inspired Oxygen (FIO2) 08/27/22 21:12 08/27/22 19:46 08/27/22 19:30 Temperature 97.6 F L Temperature Source Temporal Pulse Rate 114 H 115 H 115 H Respiratory Rate 35 H 42 H 42 H Respiratory Effort Respiratory Depth Respiratory Pattern Blood Pressure 126/96 H Blood Pressure Mean 106 Pulse Ox 91 96 Oxygen Delivery Method Bi-pap Oxygen Flow Rate (L/min) Fraction of Inspired Oxygen (FIO2) 100 08/27/22 20:33 08/27/22 21:14 Temperature Temperature Source Pulse Rate 115 H 113 H Respiratory Rate 33 H 29 H Respiratory Effort Respiratory Depth Respiratory Pattern Blood Pressure 123/87 H Blood Pressure Mean 99 Pulse Ox 96 93 Oxygen Delivery Method Bi-pap Oxygen Flow Rate (L/min) Fraction of Inspired Oxygen (FIO2) 100 Weight Weight: 81.2 kg Body Mass Index (BMI) 26.4 Physical Exam Narrative Physical exam: General: Well-nourished, well-developed. Head: Normocephalic, atraumatic, no tenderness Eyes: Vision is grossly intact. EOMI ENT, no trauma, moist mucous membranes, no rhinorrhea Neck: Nontender, No thyromegaly. CVS: Tachycardia. S1-S2 present. No murmur, gallop or rub. Respiratory : On BiPAP, tachypnea, fine Rales and rhonchi throughout. Abdomen: Soft, nontender, nondistended, normal bowel sounds, no masses : Deferred Back: Nontender, no CVA tenderness, no midline spinal tenderness, deformities, step-offs Extremities: Nontender full range of motion, no trauma Skin: Normal color, no trauma, abrasions Neuro: Alert, oriented, cranial nerves II through XII grossly intact. Psychiatry: Normal mood. Normal affect. Not depressed. Not anxious. Results Lab / Micro Data Result Diagrams: 08/28/22 03:10 08/28/22 03:10 Labs: Laboratory Results - last 24 hr 08/27/22 19:30: WBC Cancelled, Corrected WBC Cancelled, RBC Cancelled, Hgb Cancelled, Hct Cancelled, MCV Cancelled, MCH Cancelled, MCHC Cancelled, RDW Std Deviation Cancelled, RDW Coeff of Martha Cancelled, Plt Count Cancelled, MPV Cancelled, Immature Gran % (Auto) Cancelled, Neut % (Auto) Cancelled, Lymph % (Auto) Cancelled, [place] % (Auto) Cancelled, Eos % (Auto) Cancelled, Baso % (Auto) Cancelled, Absolute Neuts (auto) Cancelled, Absolute Lymphs (auto) Cancelled, Total Counted Cancelled, Neutrophils % (Manual) Cancelled, Band Neutrophils % Cancelled, Lymphocytes % (Manual) Cancelled, Monocytes % (Manual) Cancelled, Eosinophils % (Manual) Cancelled, Basophils % (Manual) Cancelled, Metamyelocytes % Cancelled, Myelocytes % Cancelled, Promyelocytes % Cancelled, Blast Cells % Cancelled, Plasma Cell % (Manual) Cancelled, Other Cells % Cancelled, Nucleated RBC % Cancelled, Nucleated RBCs/100 WBC Cancelled, Differential Comment Cancelled, Diff Path Review Cancelled, Hypersegmented Neuts Cancelled, Atypical Lymphocytes Cancelled, Reactive Lymphocytes Cancelled, Smudge Cells Cancelled, Toxic Granulation Cancelled, Toxic Vacuolation Cancelled, Dohle Bodies Cancelled, Татьяна Rods Cancelled, Platelet Estimate Cancelled, Plt Morphology Comment Cancelled, RBC Morphology Cancelled, Polychromasia Cancelled, Hypochromasia Cancelled, Poikilocytosis Cancelled, Basophilic Stippling Cancelled, Anisocytosis Cancelled, Microcytosis Cancelled, Macrocytosis Cancelled, Spherocytes Cancelled, Sickle Cells Cancelled, Target Cells Ca ncelled, Tear Drop Cells Cancelled, Ovalocytes Cancelled, Stomatocytes Cancelled, [place] Bodies Cancelled, Shelly Cells Cancelled, Bite Cells Cancelled, Crenated Cell Cancelled, Acanthocytes (Spur) Cancelled, Rouleaux Cancelled, Schistocytes Cancelled 08/27/22 19:30: Sodium 134 L, Potassium 4.0, Chloride 104, Carbon Dioxide 21.0, Anion Gap 9, BUN 26 H, Creatinine 0.76, Estim Creat Clear Calc 103.86, Est GFR (MDRD) Af Amer 109, Est GFR (MDRD) Non-Af 90, BUN/Creatinine Ratio 34.3 H, Glucose 165 H, Calcium 9.2 08/27/22 19:30: Lactic Acid 4.1 H* 08/27/22 20:02: B-Natriuretic Peptide 543.6 H 08/27/22 20:02: WBC 19.5 H, RBC 5.21, Hgb 11.0 L, Hct 37.4, MCV 71.8 L, MCH 21.1 L, MCHC 29.4 L, RDW Std Deviation 46.6 H, RDW Coeff of Martha 19.1 H, Plt Count 662 H, MPV 9.3, Immature Gran % (Auto) 2.600 H, Neut % (Auto) 84.0 H, Lymph % (Auto) 6.4 L, [place] % (Auto) 6.4, Eos % (Auto) 0.1, Baso % (Auto) 0.5, Absolute Neuts (auto) 16.4 H, Absolute Lymphs (auto) 1.25, Nucleated RBC % 0 Micro: Microbiology 08/27/22 19:31 Nasal Secretion SARS-CoV-2 & FLU Antigen (Rapid) - Final ABG Data ABG results: ABG 08/27/22 19:48 Specimen Type ART Sample Site R Radial pH 7.33 L Bicarbonate Actual 24.2 Total CO2 26 Base Excess -2 O2 Saturation 93 L O2 % 100 ABG pCO2 45.7 H ABG pO2 73 L Des Test Positive O2 Delivery Device BiPAP Clinical Comments 14. 8. 100% Radiology Impression Chest X-Ray 08/27/22 19:43 IMPRESSION: Pulmonary findings appear worse. Electronically Signed: Pranav Castaneda MD at 19:59 EDT , Assessment & Plan Assessment/Plan (1) Acute respiratory failure with hypoxia and hypercapnia: (2) Pleural effusion, left: (3) Pneumonia: (4) Breast cancer, left: QUALIFIERS: Breast location: overlapping sites of breast Estrogen receptor status: negative Patient sex: female Qualified Code(s): C50.812 - Malignant neoplasm of overlapping sites of left female breast; Z17.1 - Estrogen receptor negative status [ER-] (5) ARDS (adult respiratory distress syndrome): PLAN: Plan Septic shock secondary to pneumonia The patient presented with septic shocks due to (pneumonia) with acute sepsis related organ dysfunction as evidenced by (lactic acidosis; respiratory failure; hypotension with SBP < 90). Patient initially declined intubation at the ED but agreed to intubation as she continued to decline. SIRS criteria: On presentation Respiratory rate more than 20 Heart rate more than 90 WBC more than 12,000 organ dysfunction: SBP less than 90 or MAP less than 65 Creatinine more than 2 or urine output less than 0.5 mL/kg/h for 2 hours Lactate more than 2 mmol/L. Lactic acid was 4.1 and patient became hypotensive, likely septic shock. Of note patient was on pressors that could contribute to hypotension. Blood culture ?2 is pending Chest x-ray: interpreted by radiology as bilateral infiltrate. Hospitalist interpretation: Bilateral infiltrates with left-sided pleural effusion. Respiratory Gram stain and culture pending ordered Antibiotics: Started on vancomycin and cefepime at the emergency department and continued. IV hydration: With ARDS patient with lungs needs to be dry as much as possible. Monitor normal saline given. DuoNeb scheduled. Albuterol as needed Legionella antigen screen and Strep antigen ordered ARDS The patient placed on mechanical ventilation with lung protective strategies. Left pleural effusion Appears small and not causing her severe hypoxia. If patient becomes stable thoracentesis could be considered. Possible PE Patient oxygen saturation on bilevel and assist control ventilation with high PEEP was around 70% and below. Possible PE. Heparin drip ordered. Discussed case with java software engineer who gave recommendations. Metastatic triple negative invasive ductal carcinoma to lungs Worsening GI prophylaxis: Pepcid ordered. DVT prophylaxis: Heparin drip ordered for possible PE. Sepsis Attestation Sepsis Attestation: Agree w/Sepsis Date exam was performed: 08/28/22 Possible Source of Sepsis: Pulmonary Sepsis Organ Dysfunction Criteria Present: SBP < 90 mmHg or MAP < 65 mmHg, Acute Respiratory Failure (New need for BiPAP/CPAP or MV) and Lactic Acid > 2 mmol/L Fluid Resuscitation Fluid Resuscitation ordered: Lesser volume fluid bolus ordered Amount of fluid ordered: 1,000 Reason for lesser fluid bolus:: Concern for fluid overload and Other (ARDS) Charges/Coding Visit Charges Inpatient E&M: 01954 Init Hosp L3
--- NOTE | 2022-08-27 22:30 | NURSING ---
verified code status with pt. Full code ok to intubate. Next of kin is 22yr old daughter who does not want to make medical decisions. Pt stated that Amari her significant other could make medical decisions.
[2022-08-27] MEDS: LORazepam 2 MG/ML Syringe 1 MG IV (23:10)
[2022-08-27] MEDS: Metoprolol Tartrate 50 MG Tablet PO (23:17)
[2022-08-27] MEDS: Methylprednisolone Sod Succ 40 MG/ML VIAL IV (23:17)
[2022-08-27] MEDS: guaiFENesin 1,200 MG Tablet 1200 MG PO (23:18)
--- NOTE | 2022-08-27 23:31 | PCM.RX.CS ---
Consult Pharmacy has been consulted to manage selected antiobiotic: Vancomycin Type of Consult: New start Suspected Infection: Pneumonia Prior Doses of Antibiotics Received/Current Regimen: Medications Vancomycin HCl (Vancomycin) 1,000 mg in 200 mls @ 200 mls/hr IV Q8H SCOTT Discontinued Medications Vancomycin HCl 2,000 mg/ (Sodium Chloride) 540 mls @ 250 mls/hr IV X1 ONE Stop: 08/27/22 22:02 Last Admin: 08/27/22 21:11 Dose: 250 mls/hr Labs: Sodium 134 mmol/L (136-145) L 08/27/22 19:30 Potassium 4.0 mmol/L (3.5-5.1) 08/27/22 19:30 Chloride 104 mmol/L (98-107) 08/27/22 19:30 Carbon Dioxide 21.0 mmol/L (21.0-32.0) 08/27/22 19:30 Anion Gap 9 (5-15) 08/27/22 19:30 BUN 26 mg/dL (7-18) H 08/27/22 19:30 Creatinine 0.76 mg/dL (0.55-1.02) 08/27/22 19:30 Est GFR (MDRD) Af Amer 109 mL/min (>60) 08/27/22 19:30 Est GFR (MDRD) Non-Af 90 mL/min (>60) 08/27/22 19:30 BUN/Creatinine Ratio 34.3 RATIO (10-20) H 08/27/22 19:30 Glucose 165 mg/dL (74-106) H 08/27/22 19:30 Microbiology: Microbiology 08/27/22 19:31 Nasal Secretion SARS-CoV-2 & FLU Antigen (Rapid) - Final Weight used for dosin.3 kg Estimated Creatinine Clearance: 104 Goal Trough: 15-20 mcg/mL Pharmacy Plan for Drug Dosing: Pharmacy Service will continue to monitor and adjust dosing as required. Follow-Up Labs: Trough Vancomycin Labs to be done on [date and time ordered]: 08/28/22 @1930
[2022-08-27 23:34] LABS: Reflex Lactate? Y
[2022-08-27] MEDS: Succinylcholine Chloride 200 MG/10 ML SYRINGE 100 MG IV (23:58)
[2022-08-27] MEDS: Etomidate 20 MG/10 ML Vial IV (23:58)
[2022-08-28] VITALS (55 sets, daily range): BP systolic 68–161; BP diastolic 51–93; PULSE 69–110; RESP 14–40; TEMP 37.2–39.2; O2SAT 30–86
--- NOTE | 2022-08-28 | RAD_ITS ---
INDICATION: intubation and peg tube EXAMINATION/TECHNIQUE: X-RAY - XR Chest 1 View AP portable. 12:06 AM. COMPARISON: 08/27/2022. FINDINGS: LINES/DEVICES: Tip of the endotracheal tube is 3.5 cm above the ivette. NG tube tip in the mid stomach. LUNGS: Extensive infiltrates throughout the lungs, not significantly changed. Small left pleural effusion unchanged. Minimal right pleural effusion. No pneumothorax. MEDIASTINUM: Unremarkable. CARDIAC SILHOUETTE: Not enlarged. BONES AND SOFT TISSUES: No acute abnormalities. RAD/Chest 1 View (Portable) IMPRESSION: Satisfactory ET tube position. No significant change in extensive bilateral infiltrates. Electronically Signed: Aileen Hobbs MD at 0:33 EDT ,
[2022-08-28] MEDS: Propofol 10MG/Ml 1,000 MG/100 ML Bottle 4.8 MG CONT INF (00:15)
[2022-08-28] MEDS: Ipratropium/Albuterol Sulfate 3 ML AMPUL.NEB INHALATION ×5 (00:29→14:44)
[2022-08-28] MEDS: Albuterol 2.5 MG/3 ML VIAL.NEB. INHALATION ×2 (00:30→00:45)
[2022-08-28 00:46] LABS: Allen Test Positive; Base Excess -3 mmol/L (-2 to +2); Bicarbonate 23.4 mmol/L (22-26); Blood Gas Specimen Type ART; FI02 100; Mode AC; O2 Delivery Device Adult Vent; PEEP 12; PO2 46 mmHG (75-100); RR 14; SITE L Radial; SO2 79 % (95-99); Total Carbon Dioxide 25 mmol/L; Vt 400; pCO2 44.6 mmHg (35-45); pH 7.33 (7.35-7.45)
[2022-08-28] MEDS: Phenylephrine 10 MG/ML Vial IV (01:00)
[2022-08-28] MEDS: 0.9% Saline Lock 10 ML Syringe IV (01:03)
--- NOTE | 2022-08-28 01:05 | NURSING ---
called dgt to inform jakob that her mother was not doing well and that she should come to the hospital if she would like to see her. she was unable to find a ride, i called her back to see if the hospital was willing to send someone to bring her to the hospital would she want that. she did not want to come in and see her mother. she said chance should be their to make decisions.
--- NOTE | 2022-08-28 01:08 | NURSING ---
dr. William at bed side. adjusting medications and vent settings d/t low map and low o2 sats 0025 fentanyl @ 100, propofol @40 (map low) 0037 fentanyl @150, propofol @ 30 (map low) 0045 fentanyl @200, propofol @20 0000 propofol@ 10 0110 propofol off Precedex started at 0.5 0015precedex @ 0.7
[2022-08-28] MEDS: Methylprednisolone Sod Succ 40 MG/ML VIAL 80 MG IV (01:26)
--- NOTE | 2022-08-28 02:32 | PCM.PN.BLA ---
Progress Note Intubation Indication: Acute hypoxemic respiratory failure Consent: Consent was not obtained as patient was emergently intubated. The patient was placed in the appropriate sniffing position. Preoxygenated sedation via bipap; and then via ambu-bagging. The patient had continuous cardiac as well as pulse oximetry monitoring during the procedure. Procedure sedation was provided by the administration of etomidate and succinylcholine. GlideScope laryngoscopy was then performed using a number 3 blade, which revealed a grade 1 view. A 7.5 mm endotracheal tube was visualized advancing between the cords to the level of 22 cm at the lip. The stylette was then removed and discarded. Tube placement was confirmed by fogging in the tube along with equal and bilateral breath sounds. Colorimetric change was visualized on the CO2 meter. The cuff was then inflated and the tube secured using a commercially available device. A good pulse oximetry waveform was seen on the monitor throughout the procedure. A portable chest x-ray has been ordered to confirm appropriate placement.
[2022-08-28] MEDS: 0.9% Normal Saline 1,000 ML 999 ML IV (02:40)
[2022-08-28 03:20] LABS: Absolute Lymphocyte Count 0.94 X10^3/uL (0.83-4.51); Absolute Neutrophil Count 16.7 X10^3/uL (2.0-7.7); Basophil# 0.05 X10^3/uL; Basophil% 0.3 % (0-1); Hematocrit 38.8 % (37-47); Hemoglobin 11.2 g/dL (12.0-15.0); Lymphocyte # 0.94 X10^3/ul (0.83-4.51); Mean Corp Hgb Conc 28.9 g/dL (32-36); Mean Corpuscular Hgb 21.6 pg (27.0-32.0); Mean Corpuscular Volume 74.8 fL (81-99); Monocyte# 0.59 X10^3/uL; Monocyte% 3.2 % (0-10); NRBC Flagged by Analyzer 0 % (0-5); Neutrophil % 89.5 % (47-70); Platelet Count 585 K/mm3 (150-450); RBC Distribution Width CV 18.9 % (11.6-14.6); RBC Distribution Width SD 49.1 fl (35.1-43.9); Red Blood Count 5.19 M/mm3 (4.2-5.4); White Blood Count 18.7 K/mm3 (4.4-11.0)
[2022-08-28] MEDS: HEPARIN/D5w 25,000 UNITS 25,000 UNITS/250 ML IV.SOLN. 11 UNITS CONT INF (03:25)
[2022-08-28 03:35] LABS: International Normalized Ratio 1.5; Partial Thromboplast Time 27.9 Seconds (24.1-36.2); Prothrombin Time (Protime)PT. 17.8 SECONDS (11.7-14.9)
--- NOTE | 2022-08-28 03:35 | RAD_ITS ---
INDICATION: increased O2 needs EXAMINATION/TECHNIQUE: X-RAY - XR Chest 1 View AP portable. 3:37 AM COMPARISON: 08/28/2022 at 12:[address] chest 07/30/2022. FINDINGS: LINES/DEVICES: ET tube tip 3.5 cm above the ivette, NG tube tip in the stomach, unchanged. LUNGS: Bilateral infiltrates not significantly changed. Underlying nodules as shown on the prior CT chest ill-defined, likely superimposed infiltrates. Small left pleural effusion unchanged No pneumothorax. MEDIASTINUM: Unremarkable. CARDIAC SILHOUETTE: Not enlarged. BONES AND SOFT TISSUES: No acute abnormalities. RAD/Chest 1 View (Portable) IMPRESSION: No change in bilateral infiltrates, suspect infiltrate superimposed on pulmonary nodules, and small left pleural effusion. Electronically Signed: Aileen Hobbs MD at 4:11 EDT ,
[2022-08-28 03:42] LABS: ALB/GLOB Ratio 0.5 RATIO (0.9-2.4); AST(SGOT) 84 U/L (15-37); Alanine Aminotransfer ALT/SGPT 42 U/L (13-56); Albumin, Serum 2.3 g/dL (3.2-5.0); Alkaline Phosphatase 125 U/L (45-117); Anion Gap 10 (5-15); BUN 29 mg/dL (7-18); BUN/Creat Ratio 29.8 RATIO (10-20); Chloride 106 mmol/L (98-107); Creatinine, Serum 0.97 mg/dL (0.55-1.02); EST Glomerular Filtration Rate 67 mL/min (>60); Est Glom Filt Rate - Afr Amer 81 mL/min (>60); Estimated Creatinine Clearance 81.38 ml/min; Globulin 4.9 g/dL (2.2-4.2); Glucose 123 mg/dL (74-106); Potassium 5.4 mmol/L (3.5-5.1); Protein, Total 7.2 g/dL (6.4-8.2); Sodium Level 138 mmol/L (136-145)
[2022-08-28] MEDS: Heparin Injection (Vial) 5,000 UNIT/ML VIAL 5000 UNIT IV (03:56)
[2022-08-28 04:05] LABS: Lactic Acid 4.2 mmol/L (0.4-1.9); Magnesium 2.3 mg/dL (1.6-2.6); Phosphorus 6.8 mg/dL (2.5-4.9)
[2022-08-28 04:06] LABS: Bedside Glucose 124 mg/dL (74-106)
--- NOTE | 2022-08-28 04:15 | NURSING ---
titration and medication changes were made emergently. at the order of dr schultz and dr Goodman.
--- NOTE | 2022-08-28 04:17 | NURSING ---
Dtr has relayed to that all decisions are to be made by her mom's fiance, Amari. Amari is at bedside currently, discussed at length w/him pt prognosis of stg IV(four) breast cancer that has metastasized to most of her lung space and invaded her lymph nodes per oncology notes. Pt's cxr pulled up on bedside computer to show Amari. Discussed code status and medication options, more invasive central line placement and aggressive BP meds. Amari able to restate all information presented and then refused central line placement and any more aggressive medications. OK to change pt code status to DNRCCA w/intubation at this time. Information given to .
[2022-08-28] MEDS: Vancomycin IV 1,000 MG/200 ML BAG 200 MG IV ×2 (04:59→12:06)
--- NOTE | 2022-08-28 05:35 | NURSING ---
pt suctioned. she did not have a cough or gag. notified.
--- NOTE | 2022-08-28 05:54 | EX.PCM.CONCC ---
Assessment & Plan Assessment/Plan (1) ARDS (adult respiratory distress syndrome): PLAN: Plan RECOMMENDATIONS: 1. Continue current vent parameters. 2. Discontinue all sedating medications. 3. Continue vasopressor support to maintain mean arterial pressure at or above 65 mmHg. 4. Continue empiric antimicrobials. 5. Goals of care discussion with the patient's family. IMPRESSIONS: 1. Acute hypoxemic respiratory failure/ARDS While underlying pneumonia is a possibility, I strongly suspect that based upon her most recent CT imaging of the chest, that the infiltrates noted on chest imaging are largely secondary to metastatic lesions from her primary underlying breast malignancy. The patient was notably hypoxemic overnight. My concern is that she may have developed a component of anoxic brain injury as well. At the present time, would recommend that all sedating medications be withheld. She will be continued on assist control mode of mechanical ventilation, with current vent parameters as ordered. The sheer size of her breast tumor would make it difficult to place her in a prone position. A trial of APRV could be considered, depending on how aggressive the patient's family wishes to be. In the interim, the patient will be continued on empiric antimicrobials. Overall, the patient's prognosis is quite poor. 2. Encephalopathy Concern for anoxic insult. As noted above, all sedating medications have been discontinued. The patient will be monitored clinically for now. 3. Distributive shock While underlying sepsis is certainly a possibility, again, I cannot rule out the implications of her metastatic lesions as a contributing etiology. The patient did receive supplemental IV fluid hydration and will remain on vasopressor support to maintain a mean arterial pressure at or above 65 mmHg. Empiric antimicrobials will be continued for now, pending infectious work-up. 4. 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 Continue supportive measures as noted above. TIME: 47 minutes of critical care time, independent of procedures, was spent addressing the patient's acute hypoxemic respiratory failure, ARDS, encephalopathy, distributive shock, review of all data and collaboration with the care team. HPI Consult Data Date of Consult: 08/29/22 HPI Narrative Reason for Consultation: Acute on chronic hypoxemic respiratory failure HPI Narrative: The patient is a 41-year-old female, with a history as outlined below, who presented to the emergency department on August 27 with worsening shortness of breath and hypoxemia. The patient has a history of triple negative left breast CA with metastatic disease to the left axillary nodes and bilateral lungs. The patient was initially diagnosed with her breast cancer in September 2021. She was initially referred to oncology for evaluation and management, but did not keep any of her follow-up appointments. She was last seen by oncology on August 07, 2022, at which time, the decision was made to proceed with PET/CT for restaging purposes. She was recently admitted to the hospital July 30 through with sepsis and hypoxemia which was felt to be secondary to an upper respiratory tract infection coupled with possible underlying asthma. On presentation to the emergency department, the patient was noted to have a temperature of 96.8 ?F. She was tachycardic and tachypneic but otherwise hemodynamically stable. The patient did arrive on a nonrebreather and was subsequently transitioned to noninvasive positive pressure ventilatory support via BiPAP. Initial laboratory evaluation revealed an elevated white blood cell count at 19,000. ABG obtained on BiPAP demonstrated a pH of 7.3 with a PCO2 of 45 and PO2 of 73. Chemistry profile was notable for a lactate of 4.1. BNP was elevated at 543. Bilateral infiltrates were noted on chest imaging. The patient was initially placed on broad-spectrum antimicrobials and admitted to the medical intensive care unit. Unfortunately, due to increased work of breathing, the patient ultimately required intubation. She became profoundly hypoxemic, requiring an escalation in FiO2 and PEEP. In addition, an attempt was made overnight to paralyze the patient with cis atracurium. This proved to be non-beneficial and improving her hypoxemia. Overnight, the patient's CODE STATUS was updated to DNR CCA. She remains on assist control mode mechanical ventilation with an FiO2 requirement of 100% and PEEP of 16. She is currently only sedated on fentanyl at 50 mcg/min. COUNTS INCLUDE 234 BEDS AT THE [facility] Medical History Acid reflux Asthma Back problem Breast cancer, left Gout HTN (hypertension) Metastasis to lung Pleural effusion Regional lymph node metastasis present Request for sterilization Medical History no medical history Home Medications albuterol sulfate 90 mcg/actuation aerosol inhaler 1 - 2 puff inhalation Q4H PRN PRN Asthma 03/22/19 [History Last Taken Unknown] lisinopril 2.5 mg tablet 2.5 mg PO DAILY 03/22/19 [History Last Taken Unknown] albuterol sulfate 90 mcg/actuation aerosol inhaler (Proventil HFA) 2 puff inhalation Q6H PRN shortness of breath or wheezing #8.5 grams 08/04/22 [Rx Last Taken Unknown] alprazolam 0.5 mg tablet 0.5 mg PO TID PRN PRN Anxiety 7 days #21 tabs 08/04/22 [Rx Last Taken Unknown] amlodipine 10 mg tablet 10 mg PO DAILY #30 tabs 08/04/22 [Rx Last Taken Unknown] guaifenesin 1,200 mg tablet, extended release 12 hr (Mucus Relief ER) 1,200 mg PO BID 10 days #20 tabs 08/04/22 [Rx Last Taken Unknown] levofloxacin 750 mg tablet 750 mg PO DAILY #5 tabs 08/04/22 [Rx Last Taken Unknown] metoprolol tartrate 50 mg tablet 50 mg PO BID #60 tabs 08/04/22 [Rx Last Taken Unknown] paroxetine HCl 20 mg tablet 20 mg PO DAILY 30 days #30 tabs 08/04/22 [Rx Last Taken Unknown] prednisone 20 mg tablet 20 mg PO BID #10 tabs 08/04/22 [Rx Last Taken Unknown] dexamethasone 4 mg tablet 4 mg PO DAILY #20 tabs 08/07/22 [Rx Last Taken Unknown] Allergy/AdvReac Type Severity Reaction Status Date / Time Penicillins Allergy Rash Verified 08/07/22 11:22 aspirin AdvReac Abd Verified 08/07/22 11:22 cramps/diarrhea hydrocodone bitartrate AdvReac Abd Verified 08/07/22 11:22 [From Vicodin] cramps/diarrhea Family History Aunt Breast cancer Mother Diabetes Uncle Cancer skin cancer Father CVA (cerebral vascular accident) Daughter Thyroid disorder Surgical History S/P tubal ligation Social History Smoking Status: Current some day smoker tobacco type: cigarettes alcohol intake: never ROS Review of Systems ROS Unobtainable: due to endotracheal tube and due to mental status Physical Exam Const Constitutional Narrative: Intubated, minimally sedated and mechanically ventilated. No ventilator dyssynchrony. HEENT normocephalic and head/scalp atraumatic Mouth: endotracheal tube in place and OG tube in place Eyes conjunctivae normal Neck supple General: trachea midline Chest inspection of chest normal Resp Auscultation: wheezes and diminished lung sounds Cardio regular rate and regular rhythm GI normal to inspection, nondistended, normoactive bowel sounds Extremity no clubbing, cyanosis or edema Skin no rashes or lesions noted Neuro Neuro Narrative: Currently nonresponsive on minimal sedation. Lab / Micro Data Result Diagrams: 08/28/22 03:10 08/28/22 03:10 Labs: Laboratory Results - last 24 hr 08/27/22 19:30: WBC Cancelled, Corrected WBC Cancelled, RBC Cancelled, Hgb Cancelled, Hct Cancelled, MCV Cancelled, MCH Cancelled, MCHC Cancelled, RDW Std Deviation Cancelled, RDW Coeff of Martha Cancelled, Plt Count Cancelled, MPV Cancelled, Immature Gran % (Auto) Cancelled, Neut % (Auto) Cancelled, Lymph % (Auto) Cancelled, [place] % (Auto) Cancelled, Eos % (Auto) Cancelled, Baso % (Auto) Cancelled, Absolute Neuts (auto) Cancelled, Absolute Lymphs (auto) Cancelled, Total Counted Cancelled, Neutrophils % (Manual) Cancelled, Band Neutrophils % Cancelled, Lymphocytes % (Manual) Cancelled, Monocytes % (Manual) Cancelled, Eosinophils % (Manual) Cancelled, Basophils % (Manual) Cancelled, Metamyelocytes % Cancelled, Myelocytes % Cancelled, Promyelocytes % Cancelled, Blast Cells % Cancelled, Plasma Cell % (Manual) Cancelled, Other Cells % Cancelled, Nucleated RBC % Cancelled, Nucleated RBCs/100 WBC Cancelled, Differential Comment Cancelled, Diff Path Review Cancelled, Hypersegmented Neuts Cancelled, Atypical Lymphocytes Cancelled, Reactive Lymphocytes Cancelled, Smudge Cells Cancelled, Toxic Granulation Cancelled, Toxic Vacuolation Cancelled, Dohle Bodies Cancelled, Татьяна Rods Cancelled, Platelet Estimate Cancelled, Plt Morphology Comment Cancelled, RBC Morphology Cancelled, Polychromasia Cancelled, Hypochromasia Cancelled, Poikilocytosis Cancelled, Basophilic Stippling Cancelled, Anisocytosis Cancelled, Microcytosis Cancelled, Macrocytosis Cancelled, Spherocytes Cancelled, Sickle Cells Cancelled, Target Cells Cancelled, Tear Drop Cells Cancelled, Ovalocytes Cancelled, Stomatocytes Cancelled, [place]ass Range Bodies Cancelled, Shelly Cells Cancelled, Bite Cells Cancelled, Crenated Cell Cancelled, Acanthocytes (Spur) Cancelled, Rouleaux Cancelled, Schistocytes Cancelled 08/27/22 19:30: Sodium 134 L, Potassium 4.0, Chloride 104, Carbon Dioxide 21.0, Anion Gap 9, BUN 26 H, Creatinine 0.76, Estim Creat Clear Calc 103.86, Est GFR (MDRD) Af Amer 109, Est GFR (MDRD) Non-Af 90, BUN/Creatinine Ratio 34.3 H, Glucose 165 H, Calcium 9.2 08/27/22 19:30: Lactic Acid 4.1 H* 08/27/22 20:02: B-Natriuretic Peptide 543.6 H 08/27/22 20:02: WBC 19.5 H, RBC 5.21, Hgb 11.0 L, Hct 37.4, MCV 71.8 L, MCH 21.1 L, MCHC 29.4 L, RDW Std Deviation 46.6 H, RDW Coeff of Martha 19.1 H, Plt Count 662 H, MPV 9.3, Immature Gran % (Auto) 2.600 H, Neut % (Auto) 84.0 H, Lymph % (Auto) 6.4 L, [place] % (Auto) 6.4, Eos % (Auto) 0.1, Baso % (Auto) 0.5, Absolute Neuts (auto) 16.4 H, Absolute Lymphs (auto) 1.25, Nucleated RBC % 0 08/28/22 03:10: WBC 18.7 H, RBC 5.19, Hgb 11.2 L, Hct 38.8, MCV 74.8 L, MCH 21.6 L, MCHC 28.9 L, RDW Std Deviation 49.1 H, RDW Coeff of Martha 18.9 H, Plt Count 585 H, MPV 9.0, Immature Gran % (Auto) 2.000 H, Neut % (Auto) 89.5 H, Lymph % (Auto) 5.0 L, [place] % (Auto) 3.2, Eos % (Auto) 0.0, Baso % (Auto) 0.3, Absolute Neuts (auto) 16.7 H, Absolute Lymphs (auto) 0.94, Nucleated RBC % 0 08/28/22 03:10: Sodium 138, Potassium 5.4 H, Chloride 106, Carbon Dioxide 22.0, Anion Gap 10, BUN 29 H, Creatinine 0.97, Estim Creat Clear Calc 81.38, Est GFR (MDRD) Af Amer 81, Est GFR (MDRD) Non-Af 67, BUN/Creatinine Ratio 29.8 H, Glucose 123 H, Calcium 9.0, Total Bilirubin 0.60, AST 84 H, ALT 42, Alkaline Phosphatase 125 H, Total Protein 7.2, Albumin 2.3 L, Globulin 4.9 H, Albumin/Globulin Ratio 0.5 L 08/28/22 03:10: Lactic Acid 4.2 H* 08/28/22 03:10: PT 17.8 H, INR 1.5, APTT 27.9 08/28/22 03:10: Phosphorus 6.8 H, Magnesium 2.3 08/28/22 03:37: POC Glucose 124 H Micro: Microbiology 08/27/22 19:31 Nasal Secretion SARS-CoV-2 & FLU Antigen (Rapid) - Final ABG Data ABG results: ABG 08/27/22 08/28/22 19:48 00:41 Specimen Type ART ART Sample Site R Radial L Radial pH 7.33 L 7.33 L Bicarbonate Actual 24.2 23.4 Total CO2 26 25 Base Excess -2 -3 L O2 Saturation 93 L 79 L O2 % 100 100 ABG pCO2 45.7 H 44.6 ABG pO2 73 L 46 L Des Test Positive Positive Respiration Rate 14 O2 Delivery Device BiPAP Adult Vent Vent Mode AC Tidal Volume 400 POC PEEP 12 Clinical Comments 14. 8. 100% Radiology Impression Chest X-Ray 08/27/22 19:43 IMPRESSION: Pulmonary findings appear worse. Electronically Signed: Pranav Castaneda MD at 19:59 EDT , Chest X-Ray 08/28/22 00:00 IMPRESSION: Satisfactory ET tube position. No significant change in extensive bilateral infiltrates. Electronically Signed: Aileen Hobbs MD at 0:33 EDT , Chest X-Ray 08/28/22 03:35 IMPRESSION: No change in bilateral infiltrates, suspect infiltrate superimposed on pulmonary nodules, and small left pleural effusion. Electronically Signed: Aileen Hobbs MD at 4:11 EDT , Charges/Coding Procedures Hospitalists Procedures: [id number] [facility] H[facility]
--- NOTE | 2022-08-28 05:55 | NURSING ---
precedex stopped per significant others request
[2022-08-28] MEDS: Methylprednisolone Sod Succ 40 MG/ML VIAL IV ×2 (06:16→14:19)
--- NOTE | 2022-08-28 07:00 | NURSING ---
fentanyl stopped per significant others request, pt did not respond to verbal or painful stimuli.
--- NOTE | 2022-08-28 07:00 | NURSING ---
[facility]
--- NOTE | 2022-08-28 07:24 | PCM.PN.HOSP ---
Reason for Visit Reason for Visit: Diagnoses Malignant neoplasm of overlapping sites of left female breast (08/27/22) Pneumonia, unspecified organism (08/27/22) Acute respiratory distress syndrome (08/27/22) Pleural effusion, not elsewhere classified (08/27/22) Acute respiratory failure with hypoxia (08/27/22) Acute respiratory failure with hypercapnia (08/27/22) Estrogen receptor negative status [ER-] (08/27/22) Follow-up for acute on chronic hypoxic respiratory failure, possible sepsis Objective Data Objective Data Vital Signs: Vital Signs Temp Pulse Resp BP Pulse Ox O2 Del Method O2 Flow Rate 99.4 F H 72 18 94/73 75 Mechanical Ventilator 15 08/28/22 07:00 08/28/22 07:11 08/28/22 07:11 08/28/22 07:00 08/28/22 07:11 08/28/22 07:00 08/27/22 19:21 FiO2 100 08/28/22 07:00 Oxygen Flow Rate (L/min) 15 Oxygen Delivery Method Mechanical Ventilator Weight: 177 lb Body Mass Index (BMI) 26.1 Intake & Output: Intake and Output for Last 24 Hours 08/26/22 08/27/22 08/28/22 23:59 23:59 23:59 Intake Total 640.00 / 640.00 1610.51 / 1610.51 Output Total Balance 640.00 / 640.00 1590.51 / 1590.51 Lab / Micro Data Result Diagrams: 08/28/22 03:10 08/28/22 03:10 Labs: Laboratory Results - last 24 hr 08/27/22 19:30: Sodium 134 L, Potassium 4.0, Chloride 104, Carbon Dioxide 21.0, Anion Gap 9, BUN 26 H, Creatinine 0.76, Estim Creat Clear Calc 103.86, Est GFR (MDRD) Af Amer 109, Est GFR (MDRD) Non-Af 90, BUN/Creatinine Ratio 34.3 H, Glucose 165 H, Calcium 9.2 08/27/22 19:30: Lactic Acid 4.1 H* 08/27/22 20:02: B-Natriuretic Peptide 543.6 H 08/27/22 20:02: WBC 19.5 H, RBC 5.21, Hgb 11.0 L, Hct 37.4, MCV 71.8 L, MCH 21.1 L, MCHC 29.4 L, RDW Std Deviation 46.6 H, RDW Coeff of Martha 19.1 H, Plt Count 662 H, MPV 9.3, Immature Gran % (Auto) 2.600 H, Neut % (Auto) 84.0 H, Lymph % (Auto) 6.4 L, [place] % (Auto) 6.4, Eos % (Auto) 0.1, Baso % (Auto) 0.5, Absolute Neuts (auto) 16.4 H, Absolute Lymphs (auto) 1.25, Nucleated RBC % 0 08/28/22 03:10: WBC 18.7 H, RBC 5.19, Hgb 11.2 L, Hct 38.8, MCV 74.8 L, MCH 21.6 L, MCHC 28.9 L, RDW Std Deviation 49.1 H, RDW Coeff of Martha 18.9 H, Plt Count 585 H, MPV 9.0, Immature Gran % (Auto) 2.000 H, Neut % (Auto) 89.5 H, Lymph % (Auto) 5.0 L, [place] % (Auto) 3.2, Eos % (Auto) 0.0, Baso % (Auto) 0.3, Absolute Neuts (auto) 16.7 H, Absolute Lymphs (auto) 0.94, Nucleated RBC % 0 08/28/22 03:10: Sodium 138, Potassium 5.4 H, Chloride 106, Carbon Dioxide 22.0, Anion Gap 10, BUN 29 H, Creatinine 0.97, Estim Creat Clear Calc 81.38, Est GFR (MDRD) Af Amer 81, Est GFR (MDRD) Non-Af 67, BUN/Creatinine Ratio 29.8 H, Glucose 123 H, Calcium 9.0, Total Bilirubin 0.60, AST 84 H, ALT 42, Alkaline Phosphatase 125 H, Total Protein 7.2, Albumin 2.3 L, Globulin 4.9 H, Albumin/Globulin Ratio 0.5 L 08/28/22 03:10: Lactic Acid 4.2 H* 08/28/22 03:10: PT 17.8 H, INR 1.5, APTT 27.9 08/28/22 03:10: Phosphorus 6.8 H, Magnesium 2.3 08/28/22 03:37: POC Glucose 124 H Micro: Microbiology 08/27/22 19:31 Nasal Secretion SARS-CoV-2 & FLU Antigen (Rapid) - Final ABG Data ABG results: ABG 08/27/22 08/28/22 19:48 00:41 Specimen Type ART ART Sample Site R Radial L Radial pH 7.33 L 7.33 L Bicarbonate Actual 24.2 23.4 Total CO2 26 25 Base Excess -2 -3 L O2 Saturation 93 L 79 L O2 % 100 100 ABG pCO2 45.7 H 44.6 ABG pO2 73 L 46 L Des Test Positive Positive Respiration Rate 14 O2 Delivery Device BiPAP Adult Vent Vent Mode AC Tidal Volume 400 POC PEEP 12 Clinical Comments 14. 8. 100% Radiography Diagnostic Testing: Radiology Impression Chest X-Ray 08/27/22 19:43 IMPRESSION: Pulmonary findings appear worse. Electronically Signed: Pranav Castaneda MD at 19:59 EDT , Chest X-Ray 08/28/22 00:00 IMPRESSION: Satisfactory ET tube position. No significant change in extensive bilateral infiltrates. Electronically Signed: Aileen Hobbs MD at 0:33 EDT , Chest X-Ray 08/28/22 03:35 IMPRESSION: No change in bilateral infiltrates, suspect infiltrate superimposed on pulmonary nodules, and small left pleural effusion. Electronically Signed: Aileen Hobbs MD at 4:11 EDT , Physical Exam Narrative General: Unconscious,Intubated. HEENT: Atraumatic, Normocephalic, pupil reaction to light not obvious. Oral: ET and OG tube. Neck: Supple, No JVD, Negative Carotid Bruits Lungs: Intubated, on vent support 100% FiO2. Air entry diminished in bilateral lung bases. Bilateral chills, small left effusion Cardiovascular: Hypotensive on Levophed drip. Muffled heart sound. Rhythm. Abdomen: Bowel Sounds sluggish, Soft, Non Tender, Non-Distended : No renal angle tenderness. No suprapubic tenderness. Extremities: No edema, Capillary Refill Less than 3 Seconds Skin: No rashes, No breakdown Musculoskeletal: No Tenderness to Palpation of Joints or Extremities Neurological: Unconscious, unresponsive. Slight opening eyes with sternal rub. Psych/Mental Status: Unconscious. Assessment & Plan Assessment/Plan (1) Acute respiratory failure with hypoxia and hypercapnia: (2) Pleural effusion, left: (3) Pneumonia: (4) Breast cancer, left: QUALIFIERS: Breast location: overlapping sites of breast Estrogen receptor status: negative Patient sex: female Qualified Code(s): C50.812 - Malignant neoplasm of overlapping sites of left female breast; Z17.1 - Estrogen receptor negative status [ER-] (5) ARDS (adult respiratory distress syndrome): PLAN: Plan 41-year-old female was brought into ED for shortness of breath, usually on 1 to 2 L of home oxygen. As patient continued to have hypoxia even on 5 L EMS put on nonrebreather and brought to ED.In ED she was 70% pulse ox tachypneic pale appearing even nonrebreather. Temperature was 100.7 Fahrenheit 2 days before admission. She also had productive cough with greenish sputum fatigue and chills. Patient is newly already put on BiPAP and then intubated and ventilated Invasive ductal carcinoma triple negative CA breast with metastasis to the lungs Septic shock most likely due to bilateral pneumonia with ARDS, small left effusion: The patient presented with septic shock with clinical indicators of tachycardia, tachypnea, hypoxia, leukocytosis, hypotension requiring vasopressors due to most likely bilateral pneumonia with acute sepsis-related organ dysfunction as evidenced by fluid resistant hypotension requiring vasopressor and lactic acidosis, acute on chronic hypoxic respiratory failure requiring vent support, severe oliguria 20 mL since admission. Chest x-ray mutilative shows bilateral infiltrate and small left effusion.She required left thoracocentesis and 900 mL gloria-colored fluid was drained on 08/03/2022. Cytology negative for malignant cells. Sepsis work-up is ordered. Cultures are pending. On a scheduled DuoNeb. Patient's fianc? agreed for PICC line therefore ordered. ARDS: PaO2/FiO2 ratio less than 100, 46 therefore severe ARDS. Possible empirically PE: Patient on IV heparin drip. Metastatic triple negative invasive ductal carcinoma of breast with metastasis to lungs: During last discharge in July 2022 she she was told to follow-up with oncologist as an outpatient. Worsening GI prophylaxis: Pepcid changed to IV PPI DVT prophylaxis: Heparin drip CODE STATUS: DNR CCA no intubation. This was discussed by admitting hospitalist. Patient is DNR CCA no intubation on chart. She is intubated on ventilator and on vasopressor. I talked to patient's fianc? who does not want central line but okay with PICC line. Total time of the visit including total time spent in counseling or coordination of care, (more than 50% of the total time, spent in obtaining medical information from nurses and other ancillary care providers,explaining to the patient about labs, imaging, diagnosis and management of active complex medical conditions), medical chart review, threshing machine operator consult review, review of labs and imaging is 50 minutes. Charges/Coding Visit Charges Inpatient E&M: 85206 [facility] Hosp L3
--- NOTE | 2022-08-28 08:14 | CASEMGMT ---
CB LEVIN readmission note: Prior admission: Admitted 07/30/22. Pt w/Stage IV lung CA. Pt was diagnosed September 2021. Initially went to oncologist and started w/testing, but only completed 2/ testing d/t fear of being on chemo. Pt indep prior to admission, lived with significant other and 22 yo daughter in a second floor apartment and was able to ambulate stairs with frequent breaks. Thoracentesis done during hospital stay d/t pleural effusion. D/c'd home on 1 L/M O2. Pt denied need for HHC. Current admission: Admitted 08/27/22 w/SOB. Hypoxic on admit and ultimately intubated. Jesús FRENCH RN CM
--- NOTE | 2022-08-28 09:34 | CASEMGMT ---
Addendum entered by Magda Gomez 08/28/22 15:01: SW provided resources for indigent burial and cremation to pt's nurse as pt daughter Sadie and pt SO Amari, both out of room. Nurse to provide resources to Amari once returned to pt room. SW did attempt to call Sadie to inform Amari will have resources but phone continued to ring with no option of VM and no answer. Addendum entered by Magda Gomez 08/28/22 13:34: SW followed up with pt daughter, Sadie, pt niece and sister were present as well. SW offered support and validation of feelings during this difficult time for family. SW inquired about Sadie's decision and was informed Sadie had spoken to oldest sister Nick and younger sister, who is a teenager in foster care. These three oldest children for pt have been able to come together and made the decision to change pt to DNRCC and to terminally extubate pt. Pt's mother and brother are on their way to [facility] to see pt before this is to occur. [place] also followed up on pt's two other younger children who were discussed earlier in the day. SW concerned for the children's welfare with pt being in the hospital. Sadie and pt's niece report the two young children are in the custody of their paternal grandparents and have been with them for some time now, well cared for. Family asking about resources for and burial expenses as pt had no life insurance and no money to pay for these things. SW to research and provide any resources that can be found. [place] contacted Geena Caal to update. Geena Caal reports aware of the situation and was recently in the room and met with pt's significant other to provide support. Addendum entered by Magda Gomez 08/28/22 10:08: [place] met with pt's Daughter Sadie, pt's sister, niece, MD Marin, and nurse Chio. [place] had previously explained to Sadie that pt's significant other, Amari, who was making decisions overnight at the request of pt's oldest daughter, Nick, is not the legal decision maker. [place] explained the order in which legal decision makers would go and that as Nick has deferred to make decisions that Sadie would be the legal person to make these decisions. Sadie explained that sister, Nick, is at home refusing to get out of bed. At this time MD Marin entered and discussed with pt's daughter the choices and options available as pt continues to need increased medical interventions. MD Marin explained that pt lung functioning is worsening and the vent is breathing for pt. MD Marin discussed code status and that Sadie can make the choice to have pt as full code or DNRCC. Sadie did consider DNRCC but explained wanted to speak to Uncle before making final choice. SW encouraged Sadie to speak with other family, specifically older sister Nick, if possible, as time allows. SW also attempted to call Nick, pt's oldest daughter, again following the meeting to explain the urgency of the matter and determine if Nick would like to be involved in making decisions with sister Sadie. Nick did not answer and SW was not able to leave a VM as it was not set up. RADHA Medina Original Note: Social Work SW attempted to call pt daughter, 22 year old Nick, to discuss healthcare decisions. Overnight, Nick had deferred decisions to pt's significant other, Amari. There is no Healthcare power of estate attorney documents. At this time SW will continue to work on contacting pt's adult children, Nick and Sadie, as they would be legal decision makers. If both adult children decline to make health care decisions for patient then pt's parents would be next in line as legal decision maker. RADHA Medina
[2022-08-28] MEDS: Chlorhexidine 15 ML PO (10:33)
[2022-08-28] MEDS: Acetaminophen 650 MG/20 ML UDC NG (13:21)
[2022-08-28] MEDS: TITRATION PARAMETER CHANGE 1 EACH IV (13:21)
--- NOTE | 2022-08-28 13:49 | EKG12_ITS ---
Test Reason : RHYTHM CHANGE Blood Pressure : / mmHG Vent. Rate : 101 BPM Atrial Rate : 101 BPM P-R Int : 100 ms QRS Dur : 092 ms QT Int : 352 ms P-R-T Axes : 046 069 048 degrees QTc Int : 456 ms Sinus tachycardia with short UT Low voltage QRS Borderline ECG When compared with ECG of 27-AUG-2022 19:27, ST no longer depressed in Anterior leads T wave inversion less evident in Anterolateral leads Confirmed by CHAD GUY, KAR ([id number]), assistant production editor ALISSA MERCADO ([id number]) on 09/12/2022 10:10:00 AM Referred By: Jacob Alejandro Confirmed By:KAR BONILLA MD
--- NOTE | 2022-08-28 16:10 | CHAPLAIN ---
Type of Pastoral Visit _x__ Initial Visit _x__ Follow-up Visit ___ On-call Visit ___ General Patient Visit ___ Spiritual Assessment ___ Family Conference ___ Bereavement ___ Rapid Response ___ Code Blue ___ Other (describe below) Pastoral Care Referral From ___ Patient ___ Family _x__ Nurse ___ Physician _x__ Vocational Rehabilitation Specialist ___ Beater Boss ___ Other (describe below) Sacrament/Intervention _x__ Active listening ___ Anointing ___ Catholic ___ Bereavement ___ Communion ___ Jenna exploration ___ ___ Life review ___ Prayer ___ Reconciliation ___ Sacrament of Sick _x__ Supportive presence ___ Wedding ___ Other (describe below) Pastoral Comments RN recommended being involved in this situation as patient is intubated and is not doing well; patient alone in room and silent prayers given; later the SO was in the room and this lamination builder entered to offer support and presence; SO is very tearful and holding hand of patient who does not respond; attempted to get SO to talk or express his feelings; mostly SO cries and says how much he loves the patient; other family members at not present at this time; at second visit RN states that other family members are on their way and that family will decide for extubation; SW also calls this lamination builder to ask for support for family and especially the young adults who are tasked with making decisions
[2022-08-28 18:36] LABS: Partial Thromboplast Time 46.5 Seconds (24.1-36.2)
--- NOTE | 2022-08-28 19:15 | NURSING ---
Patient oxygen saturation steadily declining. Dr. Marin notified at 180 that sats are now ranging in the 60% and maintaining. APRV mode ordered. RT notified. Patient continued to drop her saturations to the 50% range, family at bedside. This nurse attempted to call daughter Sadie, voicemail left. Family at bedside were informed patient not doing well and daughters/children need to be called and come in. Family was informed that respiratory will be coming to change the ventilator settings. Patient oxygen saturations continued to decline. RT came to bedside to change ventilator mode, however patient dropped her saturations to 30% and then went asystole. Patient DNRCCA. Family at bedside. No pulse felt, no heart sounds auscultated. Confirmed with Lisa Mccartney RN. Time of 1829.
--- NOTE | 2022-08-28 20:26 | PCM.DEATH ---
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 Jacob William MD) ARDS (adult respiratory distress syndrome) (Acute) Pneumonia (Acute) Acute respiratory failure with hypoxia and hypercapnia (Acute) Pleural effusion, left (Acute) HCAP (healthcare-associated pneumonia) (Acute) Breast cancer, left (Acute) Triple negative with metastases to L axillary nodes, bilateral lungs. Discussed stage IV cT3 cT1 cM1, prognosis which is poor but depends on response to therapy, staging with PET CT scan, obtaining molecular markers and deciding on appropriate medication. Patient agrees to proceed. Breast cancer metastasized to lung (Acute) Hospital Course 41-year-old female was brought to ED for worsening shortness of breath. The patient usually on 1 to 2 L of home oxygen.? As patient continued to have hypoxia even on 5 L, EMS put on nonrebreather and brought to ED.In ED she was 70% pulse ox tachypneic pale appearing even nonrebreather.? Temperature was 100.7 Fahrenheit 2 days before admission.? She also had productive cough with greenish sputum fatigue and chills.? Patient is newly already put on BiPAP and then intubated and ventilated 1. Septic shock most likely due to bilateral pneumonia with ARDS, small left effusion: The patient presented with septic shock with clinical indicators of tachycardia, tachypnea, hypoxia, leukocytosis, hypotension requiring vasopressors due to most likely bilateral pneumonia with acute sepsis-related organ dysfunction as evidenced by fluid resistant hypotension requiring vasopressor and lactic acidosis, acute on chronic hypoxic respiratory failure requiring vent support, severe oliguria 20 mL since admission.? Chest x-ray mutilative shows bilateral infiltrate and small left effusion.She required left thoracocentesis and 900 mL gloria-colored fluid was drained on 08/03/2022.? Cytology was negative for malignant cells. Sepsis work-up is ordered.? Cultures are pending.? On a scheduled DuoNeb.? Patient's fianc? agreed for PICC line but as per the nursing staff, patient's younger daughter wants her fianc? not to make decision about the patient but she wanted to make decision herself. Due to poor prognosis, PICC line was held as she at 1830 hrs. on 08/28/2022. Patient on broad-spectrum IV antibiotics 2. Acute hypoxic respiratory failure due to ARDS most likely bilateral pneumonia: PaO2/FiO2 ratio less than 100, 46 therefore severe ARDS. Chest x-ray images were reviewed and shows bilateral infiltrates and pencil sorter thinks it may be largely due to metastatic lesions from her primary breast cancer. Patient hypoxia severely worsened and PaO2/FiO2 ratio was less than 50. Patient's family wanted to be DNR CC arrest with no aggressive measures but patient was intubated. Patient prognosis poor and she shortly. Possible empirically PE: Patient on IV heparin drip. Patient hemodynamically not stable for CTPA and also family did not want aggressive approach. 3. Metastatic triple negative invasive ductal carcinoma of left breast with metastasis to bilateral lungs and left axillary lymph nodes:Invasive ductal carcinoma triple negative CA breast with metastasis to the lungs During last discharge in July 2022 she she was told to follow-up with oncologist as an outpatient. Worsening GI prophylaxis: Pepcid changed to IV PPI DVT prophylaxis: Heparin drip CODE STATUS: DNR CCA no intubation.? This was discussed by admitting hospitalist.? Patient is DNR CCA no intubation on chart.? She is intubated on ventilator and on vasopressor.? I talked to patient's fianc? who does not want central line but fianc? wanted PICC line but patient seeing her daughter did not want patient will be answered to make decision but want to wait for PICC line now. Patient prognosis poor for as evaluated by technology applications consultant and myself. This was communicated to patient's fianc? and daughter. They are also making decision for terminal extubation but patient before that. She at 1830 hrs. on 08/28/2022 Visit Charges Inpatient E&M: 43490 Disch Hosp >30min
--- NOTE | 2022-08-28 20:47 | NURSING ---
[facility] called at 1940 and informed of cardiac . placed hold on patient for possible eye donation. Family notified and kept up to date. [facility] returned call and released body at 2044. [facility] called and notified of release of body at 2046.
--- NOTE | 2022-08-28 21:42 | NURSING ---
Roland gracia arrived to pickup patient. Two rings on left hand and earrings left on patient.
--- NOTE | 2022-08-28 22:22 | CPS ---
Was called by RN at 1800 due to patient's sat's continuing to drop now in the 60's. Dr. Marin was called by RT at 18:15 and APRV settings were given. Patient rapidly declining and sat's continuing to drop. RT switched patient to APRV vent settings and 100% O2 per Dr. Marin. Patient sat's still dropping despite vent changes. Family wanting patient switched back to original vent settings. RT switched patient back to AC/VC 100%. Patient's sat's continuing to rapidly decline. Time of confirmed at 18:50 by RN's. RT took patient off vent, ETT left in place.
== END 2022-08-28 21:30 | DRG 720 ==
LOC: ED 20:22 → ICU 23:52
PROVIDERS: Internal Medicine Critical Care Medicine; Nurse Practitioner; Admitting Provider Hospitalist; Emergency Provider Emergency Medicine; PCP Internal Medicine; Visit Provider Internal Medicine
DX: A41.9 Sepsis, unspecified organism (principal); J80 Acute respiratory distress syndrome; R65.21 Severe sepsis with septic shock; J18.9 Pneumonia, unspecified organism; G93.1 Anoxic brain damage, not elsewhere classified; E87.20 Acidosis, unspecified; C78.01 Secondary malignant neoplasm of right lung; C78.02 Secondary malignant neoplasm of left lung; C50.812 Malignant neoplasm of overlapping sites of left female breast; J90 Pleural effusion, not elsewhere classified; I10 Essential (primary) hypertension; K21.9 Gastro-esophageal reflux disease without esophagitis; F17.210 Nicotine dependence, cigarettes, uncomplicated; Z17.1 Estrogen receptor negative status [ER-]; Y95 Nosocomial condition; Z66 Do not resuscitate; Z99.81 Dependence on supplemental oxygen; Z79.899 Other long term (current) drug therapy
CPT/HCPCS: 31500; 31720; 36600; 71045; 80048; 80053; 82803; 82962; 83605; 83735; 83880; 84100; 85025; 85610; 85730; 87040; 87070; 87086; 87205; 87428; 87449; 93005; 94002; 94640; 94799; 99252; 99285; J7030; J7040; J7050; A4216; G0463; J3010